=== PATIENT | female | born 1945 | race Caucasian/White ===

== ENCOUNTER → 2018-03-01 08:41 | Outpatient (CLI) | payer MEDICARE, OTHER, SELFPAY ==
--- NOTE | 2018-03-01 | DI.MG.S_ITS ---
BILATERAL DIGITAL SCREENING MAMMOGRAM 3D/2D WITH CAD: 03/01/2018 CLINICAL: Routine screening. Family history of breast cancer. Comparison is made to exams dated: 02/23/2017 mammogram, 02/10/2016 mammogram, and 02/03/2015 mammogram - [facility]. There are scattered fibroglandular elements in both breasts. Current study was also evaluated with a Computer Aided Detection (CAD) system. No significant masses, calcifications, or other findings are seen in either breast. There has been no significant interval change. IMPRESSION: NEGATIVE There is no mammographic evidence of malignancy. A 1 year screening mammogram is recommended. This exam was interpreted at Station ID: [id number]. NOTE: For mammograms, a report in lay terms will be sent to the patient. Approximately 15% of breast malignancies will not be visualized mammographically. In the management of a palpable breast mass, a negative mammogram must not discourage biopsy of a clinically suspicious lesion. Electronically Signed By: Leonidas rodriguez/bria:03/01/2018 11:03:39 copy to: Keyanna Gamino letter sent: Normal Exam ACR BI-RADS Category 1: Negative 3341F
== END ==
PROVIDERS: Visit Provider Physician Assistant
DX: Z12.31 Encounter for screening mammogram for malignant neoplasm of breast (principal); Z80.3 Family history of malignant neoplasm of breast
CPT/HCPCS: 77063; 77067

== ENCOUNTER → 2018-03-06 09:37 | Outpatient (CLI) | payer MEDICARE, OTHER, SELFPAY | PROVIDERS: Visit Provider Family Medicine | DX: M85.852 Other specified disorders of bone density and structure, left thigh (principal); Z78.0 Asymptomatic menopausal state; R29.890 Loss of height; Z82.62 Family history of osteoporosis; Z87.891 Personal history of nicotine dependence | CPT/HCPCS: 77080 ==

== ENCOUNTER → 2019-03-19 10:48 | Outpatient (CLI) | payer MEDICARE, OTHER, SELFPAY ==
--- NOTE | 2019-03-19 | DI.MG.S_ITS ---
BILATERAL DIGITAL SCREENING MAMMOGRAM 3D/2D WITH CAD: 03/19/2019 CLINICAL: Routine screening. Family history of breast cancer. Comparison is made to exams dated: 02/23/2017 mammogram, 03/01/2018 mammogram, and 02/10/2016 mammogram - [facility]. There are scattered fibroglandular elements in both breasts. Current study was also evaluated with a Computer Aided Detection (CAD) system. No significant masses, calcifications, or other findings are seen in either breast. There has been no significant interval change. IMPRESSION: NEGATIVE There is no mammographic evidence of malignancy. A 1 year screening mammogram is recommended. This exam was interpreted at Station ID: [id number]. NOTE: For mammograms, a report in lay terms will be sent to the patient. Approximately 15% of breast malignancies will not be visualized mammographically. In the management of a palpable breast mass, a negative mammogram must not discourage biopsy of a clinically suspicious lesion. Electronically Signed By: Skinny guerra/bria:03/19/2019 16:44:31 copy to: Keyanna Gamino letter sent: Normal Exam ACR BI-RADS Category 1: Negative 3341F
== END ==
PROVIDERS: PCP Family Medicine; Visit Provider Family Medicine
DX: Z12.31 Encounter for screening mammogram for malignant neoplasm of breast (principal); Z80.3 Family history of malignant neoplasm of breast
CPT/HCPCS: 77063; 77067

== ENCOUNTER 2019-03-28 09:14 | Day surgery (SDC) | payer MEDICARE, OTHER, SELFPAY ==
--- NOTE | 2019-03-25 15:55 | PM.PREOP ---
Pre-operative Note Interval Note History & Physical reviewed/Exam performed by Physician: Yes Changes to H&P: No
--- NOTE | 2019-03-25 15:56 | PM.OP.1 ---
Procedure & Clinicians Procedure: Preoperative diagnoses: 1. Nuclear sclerotic cataract 2. Astigmatism which is to be corrected with a toric intraocular lens implant. 3. Hypertension. Postoperative diagnoses: 1. Cataract removal with phacoemulsification with toric posterior chamber intraocular lens implant placed. Procedure: Phacoemulsification with posterior chamber toric intraocular lens implant. Surgeon: Gill Gutiérrez MD Complications: None Specimen: None Implant: [id number] +16.5 [place] 035 degrees, -2.25 target Blood loss: None Anesthesia: Retrobulbar with monitored standby Description of procedure: Patient presents with a complaint of decreased vision due to cataract which is affecting activities of daily living. The patient wants surgery to improve vision and astigmatism. The patient was taken to the operating room and proparacaine drops placed. Indelible ink duke were placed at the 90 and 180 degree meridian. The patient was placed on the operating room table and given IV sedation. A retrobulbar block insert consisting of 6 cc of 2% xylocaine without epinephrine mixed half and half with 0.5% Marcaine with 1 cc of hyaluronidase added is placed between the medial and lateral 1/3 of the inferior orbital rim. Lid akinesia is obtain with 1% xylocaine with epinephrine infiltrated along the lid margin. The eye is manually massaged for 30 sec, prepped using Betadine solution, and draped in the usual sterile fashion. Temporal approach was made, a 1 mm side-port incision was made 90? from the proposed corneal wound. Phenylephrine 1.5% mixed with 1% xylocaine 0.2 cc was placed into the anterior chamber. Viscoat followed by James was then placed. A 2.6 mm clear incision with a 2.6 mm blade was placed at the 170 degree meridian. A 360 degree capsulorrhexis style capsulotomy was then performed with a cystitome needle on a Healon. Hydrodelineation and hydrodissection were performed. The phacoemulsification unit is introduced, and sculpting used to groove the central lens. It is then removed in chopping mode. Epi nucleus is removed with epinuclear mode and irrigation aspiration was used to remove the peripheral cortex. The posterior capsule is polished. The intraocular lens is selected, inspected, power confirmed, and placed in the posterior chamber at the desired meridian of 35?. The pupil was not constricted. The wound was stromally hydrated and tested for leaks, there was none and it was left sutureless. Vigamox 0.1 cc was placed into the anterior chamber. Kenalog 0.2 cc was placed in the superior subconjunctival space. A drop of antibiotic and was placed and the eye was patched and shielded. The patient was stable and returned to the recovery room in excellent condition. Dictated by: Gill Gutiérrez MD Copy to: [facility]
[2019-03-28] MEDS: PROPARACAINE 0.5% OPHTH SOL 2 DROPS EYE-OP (09:42)
[2019-03-28] MEDS: CATARACT EYE COMPOUND (10 DROPS/SYRINGE) 3 DROPS EYE-OP ×3 (09:44→10:03)
[2019-03-28 09:46] VITALS: BP 111/79; PULSE 73; RESP 15; TEMP 36.1; O2SAT 96
[2019-03-28 09:49] VITALS: BMI 31.6
--- NOTE | 2019-03-28 10:54 | SUR.OPER ---
Supine on eye stretcher, head on extension cradle secured with tape. Arms tucked at sides with blanket. Pillow under knees.
[2019-03-28] MEDS: ERYTHROMYCIN OPHTH 1 GM OINT 1 APPLIC EYE-RIGHT (11:21)
[2019-03-28] MEDS: MOXIFLOXACIN OPHTH DROPS 3 ML BOTTLE 2 DROPS INJ ×2 (11:22)
[2019-03-28] MEDS: TRIAMCINOLONE 50 MG/5 ML VIAL INJ (11:23)
[2019-03-28] MEDS: HYALURONATE SODIUM 10 MG/ML SYRINGE INJ (11:24)
[2019-03-28] MEDS: BALANCED SALT IRRIG SOLN NO.2 15 ML IRR (11:24)
[2019-03-28] MEDS: CHONDROIDTIN/SOD HYALURONATE 1.05 ML SYRINGE INTRAOCULA (11:24)
[2019-03-28] MEDS: OFLOXACIN 0.3% OPHTH 5 ML 2 DROPS EYE-RIGHT (11:25)
[2019-03-28] MEDS: BALANCED SALT IRRIG SOLN NO.2 500 ML, EPINEPHrine 1 MG IRR (11:26)
[2019-03-28] MEDS: LIDOCAINE 1% W/EPI INJ 20 ML INJ (11:26)
[2019-03-28] MEDS: LIDOCAINE 2% 4 ML, BUPIVACAINE 0.5% (PF) 4 ML, HYALURONIDASE 150 UNIT INJ (11:27)
[2019-03-28 12:00] VITALS: BP 124/63; PULSE 54; RESP 15; TEMP 36.3; O2SAT 99
[2019-03-28 12:14] VITALS: BP 157/73; PULSE 58; RESP 16; TEMP 36.1; O2SAT 97
== END 2019-03-28 12:18 | disposition home or self-care (01) ==
LOC: OR 09:21
PROVIDERS: PCP Family Medicine; Visit Provider Ophthalmology
PROC: (CPT 66984; principal; 2019-03-28 10:45)
DX: H25.11 Age-related nuclear cataract, right eye (principal); H52.201 Unspecified astigmatism, right eye; I10 Essential (primary) hypertension
CPT/HCPCS: 66984; J0171; J2250; J2704; J3010; J3301; J3470; V2787

== ENCOUNTER 2019-04-11 11:44 | Day surgery (SDC) | payer MEDICARE, OTHER, SELFPAY ==
--- NOTE | 2019-04-09 19:45 | PM.PREOP ---
Pre-operative Note Interval Note History & Physical reviewed/Exam performed by Physician: Yes Changes to H&P: No
--- NOTE | 2019-04-11 07:31 | PM.OP.1 ---
Procedure & Clinicians Procedure: Preoperative diagnoses: 1.Left nuclear sclerotic cataract 2. Astigmatism which is to be corrected with a toric intraocular lens implant. Postoperative diagnoses: 1. Cataract removal with phacoemulsification with toric posterior chamber intraocular lens implant placed. Procedure: Phacoemulsification with posterior chamber toric intraocular lens implant. Surgeon: Gill Gutiérrez MD Complications: None Specimen: None Implant: [id number] +17.5 [place] 135 -2.50 target Blood loss: None Anesthesia: Retrobulbar with monitored standby Description of procedure: Patient presents with a complaint of decreased vision due to cataract which is affecting activities of daily living. The patient wants surgery to improve vision and astigmatism. The patient was taken to the operating room and proparacaine drops placed. Indelible ink duke were placed at the 90 and 180 degree meridian. The patient was placed on the operating room table and given IV sedation. A retrobulbar block insert consisting of 6 cc of 2% xylocaine without epinephrine mixed half and half with 0.5% Marcaine with 1 cc of hyaluronidase added is placed between the medial and lateral 1/3 of the inferior orbital rim. Lid akinesia is obtain with 1% xylocaine with epinephrine infiltrated along the lid margin. The eye is manually massaged for 30 sec, prepped using Betadine solution, and draped in the usual sterile fashion. Temporal approach was made, a 1 mm side-port incision was made 90? from the proposed corneal wound. Phenylephrine 1.5% mixed with 1% xylocaine 0.2 cc was placed into the anterior chamber. Viscoat followed by Healon was then placed. A 2.6 mm clear incision with a 2.6 mm blade was placed at the 170 degree meridian. A 360 degree capsulorrhexis style capsulotomy was then performed with a cystitome needle on a Healon. Hydrodelineation and hydrodissection were performed. The phacoemulsification unit is introduced, and sculpting used to groove the central lens. It is then removed in chopping mode. Epi nucleus is removed with epinuclear mode and irrigation aspiration was used to remove the peripheral cortex. The posterior capsule is polished. The intraocular lens is selected, inspected, power confirmed, and placed in the posterior chamber at the desired meridian of 135 degrees. The pupil was not constricted. The wound was stromally hydrated and tested for leaks, there was none and it was left sutureless. Vigamox 0.1 cc was placed into the anterior chamber. Kenalog 0.2 cc was placed in the superior subconjunctival space. A drop of antibiotic and was placed and the eye was patched and shielded. The patient was stable and returned to the recovery room in excellent condition. Dictated by: Gill Gutiérrez MD Copy to: [facility]
[2019-04-11 12:16] VITALS: BP 145/85; PULSE 63; RESP 16; TEMP 36.3; O2SAT 100; BMI 30.4
[2019-04-11] MEDS: PROPARACAINE 0.5% OPHTH SOL 2 DROPS EYE-OP ×2 (12:28→13:42)
[2019-04-11] MEDS: CATARACT EYE COMPOUND (10 DROPS/SYRINGE) 3 DROPS EYE-OP (12:28)
[2019-04-11] MEDS: PHENYLEPHRINE/LIDOCAINE VIAL (OR) 0.2 ML EYE-OP (13:40)
[2019-04-11] MEDS: MOXIFLOXACIN OPHTH DROPS 3 ML BOTTLE 2 DROPS INJ (13:40)
[2019-04-11] MEDS: HYALURONATE SODIUM 10 MG/ML SYRINGE INJ (13:41)
[2019-04-11] MEDS: BALANCED SALT IRRIG SOLN NO.2 15 ML IRR (13:41)
[2019-04-11] MEDS: TRIAMCINOLONE 50 MG/5 ML VIAL INJ (13:41)
[2019-04-11] MEDS: CHONDROIDTIN/SOD HYALURONATE 1.05 ML SYRINGE INTRAOCULA (13:41)
[2019-04-11] MEDS: BALANCED SALT IRRIG SOLN NO.2 500 ML, EPINEPHrine 1 MG IRR (13:42)
[2019-04-11] MEDS: OFLOXACIN 0.3% OPHTH 5 ML 2 DROPS EYE-LEFT (13:42)
[2019-04-11] MEDS: LIDOCAINE 2% 4 ML, BUPIVACAINE 0.5% (PF) 4 ML, HYALURONIDASE 150 UNIT INJ (13:43)
[2019-04-11] MEDS: ERYTHROMYCIN OPHTH 1 GM OINT 1 APPLIC EYE-LEFT (13:44)
[2019-04-11] MEDS: LIDOCAINE 1% W/EPI INJ 20 ML INJ (13:44)
[2019-04-11 14:15] VITALS: BP 141/75; PULSE 50; RESP 17; TEMP 36.4; O2SAT 99
== END 2019-04-11 14:29 | disposition home or self-care (01) ==
LOC: OR 11:46
PROVIDERS: PCP Family Medicine; Visit Provider Ophthalmology
PROC: (CPT 66984; principal; 2019-04-11 13:15)
DX: H25.12 Age-related nuclear cataract, left eye (principal); H52.202 Unspecified astigmatism, left eye
CPT/HCPCS: 66984; J0171; J2250; J2704; J3010; J3301; J3470; V2787

== ENCOUNTER → 2019-08-07 09:03 | Outpatient (CLI) | payer MEDICARE, OTHER, SELFPAY ==
--- NOTE | 2019-08-07 10:21 | DI.CT.S_ITS ---
PROCEDURE: CT ABDOMEN PELVIS W CON INDICATIONS: ABD PAIN TECHNIQUE: After the administration of oral and intravenous contrast, 5 mm thick sections acquired from the diaphragms to the symphysis. 5 mm thick coronal and sagittal reformats were performed. For radiation dose reduction, the following was used: automated exposure control, adjustment of mA and/or kV according to patient size. COMPARISON: [facility], CT, ABDOMEN/PELVIS WITH CONTRAST, 07/26/2017, 12:02. [facility], CT, ABDOMEN/PELVIS WITH CONTRAST, 08/31/2016, 9:25. FINDINGS: Image quality: Excellent. ABDOMEN: Lung bases: Lung bases are clear. Heart size is normal. Solid organs: Liver is normal in size and enhancement. Gallbladder has been previously resected. Biliary system is non-dilated. Pancreas enhances normally. Spleen is normal in size and enhancement. No adrenal nodules. Kidneys are normal in size and enhancement, without hydronephrosis. Incidental note is made of several small peripelvic cysts lower left renal sinus fat. Peritoneum and bowel: Stomach, small bowel, and colon loops are normal in caliber and wall thickness. No free fluid or air. Nodes and vessels: No retroperitoneal or mesenteric adenopathy. Aorta and inferior vena cava are normal in caliber. Miscellaneous: No ventral hernias. PELVIS: Genitourinary: Bladder wall thickness is normal. Miscellaneous: No inguinal hernias or adenopathy. Normal appendix containing oral contrast, right lower quadrant. Bones: No suspicious bony lesions. No vertebral body compression fractures. 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 IMPRESSION: No acute disease foun, source of new onset abdominal pain is not identified. Normal appendix right lower quadrant. No sign of diverticulitis or adnexal pathology left lower quadrant. No urinary tract abnormality seen suggestive of inflammation or calculus. Prior cholecystectomy. Dictated by: Laron Cruz M.D. on 08/07/2019 at 13:55 Approved by: Laron Cruz M.D. on 08/07/2019 at 13:58
== END ==
PROVIDERS: PCP Family Medicine; Visit Provider Family Medicine
DX: R10.9 Unspecified abdominal pain (principal); Z90.49 Acquired absence of other specified parts of digestive tract
CPT/HCPCS: 74177

== ENCOUNTER → 2020-01-16 10:43 | Outpatient (CLI) | payer MEDICARE, OTHER, SELFPAY ==
--- NOTE | 2020-01-16 | DI.RAD.S_ITS ---
PROCEDURE: XR WRIST RT MIN 3V INDICATIONS: Rt wrist injury TECHNIQUE: 4 views of the wrist were acquired. COMPARISON: None. FINDINGS: Bones: No fractures or dislocations. No suspicious bony lesions. Scaphoid view: No trauma. Soft tissues: No suspicious soft tissue calcifications. IMPRESSION: No trauma found. Mild osteoarthritis. Dictated by: Laron Cruz M.D. on 01/16/2020 at 11:28 Approved by: Laron Cruz M.D. on 01/16/2020 at 11:29
== END ==
PROVIDERS: PCP Family Medicine; Referring Provider Family Medicine; Visit Provider Family Medicine
DX: S69.91XA Unspecified injury of right wrist, hand and finger(s), initial encounter (principal); M19.031 Primary osteoarthritis, right wrist; X58.XXXA Exposure to other specified factors, initial encounter
CPT/HCPCS: 73110

== ENCOUNTER → 2020-06-09 10:06 | Outpatient (CLI) | payer MEDICARE, OTHER, SELFPAY ==
--- NOTE | 2020-06-09 | DI.RAD.S_ITS ---
PROCEDURE: XR ANKLE LT MIN 3V INDICATIONS: LEFT ANKLE PAIN TECHNIQUE: 3 views of the ankle were acquired. COMPARISON: None. FINDINGS: Bones: No fractures or dislocations. Ankle mortise is normally aligned. No suspicious bony lesions. Soft tissues: No tibiotalar joint effusion. Achilles tendon appears normal. IMPRESSION: No visualized acute fracture or dislocation. However, if clinical concern and/or pain persist, short interval imaging followup in 7-10 days is recommended, as occult injury cannot be definitively excluded. Dictated by: Aga Parra M.D. on 06/09/2020 at 12:28 Approved by: Aga Parra M.D. on 06/09/2020 at 12:28
== END ==
PROVIDERS: PCP Family Medicine; Referring Provider Family Medicine; Visit Provider Family Medicine
DX: M25.572 Pain in left ankle and joints of left foot (principal)
CPT/HCPCS: 73610

== ENCOUNTER → 2020-06-23 08:18 | Outpatient (CLI) | payer MEDICARE, OTHER, SELFPAY ==
--- NOTE | 2020-06-23 | DI.MG.S_ITS ---
BILATERAL DIGITAL SCREENING MAMMOGRAM 3D/2D WITH CAD: 06/23/2020 CLINICAL: Routine screening. Family history of breast cancer. Comparison is made to exams dated: 03/19/2019 mammogram, 03/01/2018 mammogram, and 02/23/2017 mammogram - [facility]. There are scattered fibroglandular elements in both breasts. Current study was also evaluated with a Computer Aided Detection (CAD) system. No significant masses, calcifications, or other findings are seen in either breast. There has been no significant interval change. IMPRESSION: NEGATIVE There is no mammographic evidence of malignancy. A 1 year screening mammogram is recommended. This exam was interpreted at Station ID: [id number]. NOTE: For mammograms, a report in lay terms will be sent to the patient. Approximately 15% of breast malignancies will not be visualized mammographically. In the management of a palpable breast mass, a negative mammogram must not discourage biopsy of a clinically suspicious lesion. Electronically Signed By: Abhi zeng/bria:06/23/2020 10:07:50 copy to: Keyanna Gamino letter sent: Normal Exam ACR BI-RADS Category 1: Negative 3341F
== END ==
PROVIDERS: PCP Family Medicine; Referring Provider Family Medicine; Visit Provider Family Medicine
DX: Z12.31 Encounter for screening mammogram for malignant neoplasm of breast (principal); Z80.3 Family history of malignant neoplasm of breast
CPT/HCPCS: 77063; 77067

== ENCOUNTER → 2020-07-08 10:21 | Outpatient (CLI) | payer MEDICARE, OTHER, SELFPAY ==
[2020-07-09 02:07] LABS: COVID19 Sendout Not Detected (Not Detect)
== END ==
PROVIDERS: PCP Family Medicine; Visit Provider Nurse Practitioner
DX: Z11.59 Encounter for screening for other viral diseases (principal)
CPT/HCPCS: 87635

== ENCOUNTER 2020-07-11 07:18 | Day surgery (SDC) | payer MEDICARE, OTHER, SELFPAY ==
--- NOTE | 2020-07-11 | PATH_ITS ---
[facility] Accession Number: [id number] . 01 Material submitted: . colon - RANDOM COLON TISSUE BIOPSIES . 01 Clinical history: . SDC . 02 Diagnosis: Random Colon, Biopsies: Colonic mucosa with no diagnostic abnormality. Negative for active, chronic, and microscopic colitis. Negative for dysplasia and malignancy. . MRV 07/15/2020 1044 Local . 02 Electronically signed: . Flaco Montejo MD, PhD, Pathologist NPI- [id number] . 01 Gross description: . The specimen is received in formalin, labeled random colon, and consists of multiple middleton fragments of soft tissue measuring 1.2 x 1.0 x 0.2 cm in aggregate. The specimen is filtered and entirely submitted in cassette A1. ([id number]) /FRR 07/12/2020 1755 Local . 02 Pathologist provided ICD-10: R19.4 . 02 CPT . 794910 Performed at: 01 [facility] [address] [facility], [place], [place] [id number] MD Skinny Alvarez MD Phone: [phone] Performed at: 02 [facility] [address] [place], [place] [id number] MD Melodie Rainey MD Phone: [phone]
[2020-07-11 07:36] VITALS: BMI 32.3
[2020-07-11 07:42] VITALS: BP 162/77; PULSE 64; RESP 12; TEMP 37.2; O2SAT 99
[2020-07-11] MEDS: SODIUM CHLORIDE 0.9% 1,000 ML 200 ML IV (07:46)
--- NOTE | 2020-07-11 08:36 | PM.PREOP ---
Pre-operative Note COVID-19 COVID-19 status: Negative Result date/Date tested (Pos, Neg/Pending): 07/08/20 Interval Note History & Physical reviewed/Exam performed by Physician: Yes Changes to H&P: No ASA Class (for procedural sedation): II
--- NOTE | 2020-07-11 08:42 | PM.OP.ENDO ---
Operative Date/Time/Diagnoses Date of procedure: 07/11/20 Time of procedure: 08:42 Pre-op diagnosis: History of chronic diarrhea, change in bowel habit, incomplete colonoscopy 2 years ago with recommendation for repeat colonoscopy in 2 years Post-op diagnosis: other (Moderate diverticulosis in the descending and remaining sigmoid colon. Healthy looking sigmoid anastomosis without stenosis. Biopsies taken to rule out microscopic colitis) Procedure & Clinicians Study performed: Colonoscopy Procedural sedation performed by the endoscopist Random cold Jumbo forceps biopsies throughout the colon to rule out microscopic colitis Same procedure as scheduled: Yes Indications: Change in bowel habit, history of incomplete colonoscopy Surgeon: Jessica Delgadillo Procedure Notes SCOAP/Timeout: Performed Procedure in detail: The patient was brought to the room and placed in left lateral decubitus position with all bony prominences padded. A time-out was performed and then the patient was given procedural sedation starting with 4 mg of Versed and 100 mcg of fentanyl. Vitals were monitored throughout the procedure and remained stable. Once adequately sedated, the procedure was begun. A rectal exam was performed revealing no abnormalities. The colonoscope was then introduced to the rectum and advanced to the cecum in the usual fashion. In the right side of the colon, the prep was moderate with some adherent stool. I washed off as much as I could, but there is a possibility that smaller polyps could be missed in this area due to the incomplete prep. The cecum was identified by the appendiceal orifice, the mucosal tri-fold, and the ileocecal valve. The scope was then retracted while rotating side to side and examining each mucosal fold. Random biopsies were taken throughout the colon to rule out microscopic colitis as a cause of the patient's persistent diarrhea. The anastomosis from her prior sigmoid resection was seen, and did not appear stenotic, it appeared quite healthy and normal. At the conclusion of the procedure retroflexion was performed and small grade 1-2 internal hemorrhoids without stigmata of bleeding were seen. The scope was then withdrawn from the rectum the procedure was concluded. The patient tolerated the procedure well and was transferred to the PACU in stable condition. Scope withdrawal time: 11 Sedation minutes: 20 Findings: diverticulosis Specimen(s): other (Random biopsies throughout the colon) Complications: none Impression: Normal appearing colonic mucosa with a few diverticula. Healthy looking colonic anastomosis without stenosis or abnormality. Post-procedure Recommendations: Colonscopy in 5 years (Due to incomplete prep, possibility of missing small polyps in the right colon) and Other recommendation (Follow-up to discuss biopsy results) Follow up: as needed Disposition: PACU
[2020-07-11] MEDS: MIDAZOLAM 5 MG/5 ML VIAL IV (08:44)
[2020-07-11] MEDS: fentaNYL 250 MCG/5 ML INJ IV (08:44)
[2020-07-11 09:07] VITALS: BP 142/64; PULSE 50; RESP 15; TEMP 37.1; O2SAT 97
[2020-07-11 09:13] VITALS: BP 124/56; PULSE 55; RESP 15; TEMP 36.4; O2SAT 98
[2020-07-11 09:16] VITALS: BP 124/64; PULSE 56; RESP 20; TEMP 36.7; O2SAT 98
[2020-07-11 09:37] VITALS: BP 126/51; PULSE 49; RESP 20; TEMP 36.3; O2SAT 96
--- NOTE | 2020-07-11 09:39 | SUR.PHASEII ---
Patient discharged in stable condition with all belongings returned.
== END 2020-07-11 09:40 | disposition home or self-care (01) ==
PROVIDERS: PCP Family Medicine; Referring Provider Family Medicine; Visit Provider Surgery
PROC: 0DJD8ZZ Inspection of Lower Intestinal Tract, Via Natural or Artificial Opening Endoscopic (ICD-10-PCS; CPT 45378; principal; 2020-07-11 08:30)
DX: R19.4 Change in bowel habit (principal); K57.30 Diverticulosis of large intestine without perforation or abscess without bleeding; I10 Essential (primary) hypertension; E78.5 Hyperlipidemia, unspecified; E03.9 Hypothyroidism, unspecified; E66.9 Obesity, unspecified; Z68.32 Body mass index [BMI] 32.0-32.9, adult; Z98.0 Intestinal bypass and anastomosis status; Z90.49 Acquired absence of other specified parts of digestive tract
CPT/HCPCS: 45380; 99152; J2250; J3010

== ENCOUNTER → 2020-07-22 09:37 | Outpatient (CLI) | payer MEDICARE, OTHER, SELFPAY | PROVIDERS: PCP Family Medicine; Referring Provider Family Medicine; Visit Provider Family Medicine | DX: M85.80 Other specified disorders of bone density and structure, unspecified site (principal); Z78.0 Asymptomatic menopausal state; E07.9 Disorder of thyroid, unspecified; Z90.722 Acquired absence of ovaries, bilateral; Z82.62 Family history of osteoporosis; Z87.891 Personal history of nicotine dependence | CPT/HCPCS: 77080 ==

== ENCOUNTER 2020-10-15 10:30 | Outpatient (RCR) | payer MEDICARE, OTHER, SELFPAY ==
--- NOTE | 2020-07-07 13:50 | PT.OIE ---
Current Diagnoses Pain in left ankle and joints of left foot (07/07/20) Weakness (07/07/20) Edema, unspecified (07/07/20) Past Medical History (Last Reviewed 06/26/20 @ 14:42 by Jessica Delgadillo MD) History of diverticulitis (Acute) Hypertension (Acute) Hypothyroid (Acute) Ocular migraine (Acute) Past Surgical History (Last Reviewed 06/26/20 @ 14:42 by Jessica Delgadillo MD) H/O bilateral oophorectomy (Acute) History of arthroscopy of right knee (Acute) History of cholecystectomy (Acute) History of colon resection (Acute) History of hysterectomy (Acute) History of incisional hernia repair (Acute) Hx of total knee arthroplasty (Acute) Visit Care Team Role Provider Type Keyanna Gamino MD Attending Provider Physician Primary Care Provider Referring Provider Specialty: Family Practice Address: [address] [place] [address], [facility] Email: [email or web address] Initial Evaluation PT-OP-A Visit Information Start: 07/03/20 17:36 Freq: Status: Active Protocol: Document 07/07/20 09:47 SAK (Rec: 07/07/20 10:15 SAK [id number]) Out-Patient Physical Therapy Visit Information Visit Information Visit Type Initial Evaluation Visit Start Time 09:47 Visit Stop Time 10:41 Total Visit Minutes 54 Visit Number 1 Evaluation Information Evaluation Date 07/07/20 PT-OP-B Current Condition Start: 07/03/20 17:36 Freq: Status: Active Protocol: Document 07/07/20 09:47 SAK (Rec: 07/07/20 10:15 SAK [id number]) Current Condition History of Current Condition Onset Date 1 year Current Complaints left ankle pain and swelling History of Current Condition gradual onset left ankle pain. No known injury. Silk Opener recommended ice and heat, minimal effect. Wears Vionic shoes, reports less pain with the good arch. States walking very limited at this time due to the pain and that she knows she limps. Has not used cane or tried compression stockings Prior Treatments and Tests x-ray negative Treatment Goals Patient/Caregiver Goals minimize pain, be able to walk without pain Prior Functional Status Baseline Function- ADL's Independent Baseline Function- Mobility Independent Baseline Function- Gait no limp Current Functional Impairments (Reported) Functional Limitations- ADL's painful in standing Functional Limitations- Mobility/Gait limited to household and short distance community. Unable to go for long walks as previously due the pain PT-OP-C Subjective Start: 07/03/20 17:36 Freq: Status: Active Protocol: Document 07/07/20 09:47 SAK (Rec: 07/07/20 11:14 [facility] [id number]) Patient Questionnaires Foot & Ankle Ability Measure- ADL and Sports FAAM-ADL Score 43 Lower Extremity Functional Scale LEFS Score 54 OP-PT Pain Assessment Pain Assessment Grid Paper Pain Assessment Grid Completed Yes Location left ankle Intensity 8 Scale Used Numeric (0 - 10) Description Aching,Pressure,With Movement Frequency Frequent Pain Aggravating Factors Changing Position,Activity, Standing,Walking Pain Alleviating Factors Inactivity Home Pain Medication Use Pain Medications Used No Pain Behaviors Pain Behaviors Facial Grimacing,Wincing PT-OP-F Manual Assessment Start: 07/03/20 17:36 Freq: Status: Active Protocol: Document 07/07/20 13:23 [facility] (Rec: 07/07/20 13:49 [facility] [id number]) Manual Assessments Joint Mobility Assessment Joint Mobility Assessment decreased subtalar mobility all motions PT-OP-G Mobility & Gait Start: 07/03/20 17:36 Freq: Status: Active Protocol: Document 07/07/20 13:23 [facility] (Rec: 07/07/20 13:49 [facility] [id number]) OP Gait Assessment Gait Gait Assistance Required: Independent Assistive Devices Assistive Device None Gait Deviations General Gait Pattern Antalgic Factors Limiting Gait Function Factors Limiting Gait Function Decreased Strength,Pain Comments Gait Comments swelling Stair Climbing Evaluation Technique/Endurance Stair Climbing Technique Step to Step PT-OP-H Neuro Start: 07/03/20 17:36 Freq: Status: Active Protocol: Document 07/07/20 13:23 [facility] (Rec: 07/07/20 13:49 [facility] [id number]) Sensation Evaluation Gross Sensation Gross Sensation WNL PT-OP-J Posture/Palpation/Skin Start: 07/03/20 17:36 Freq: Status: Active Protocol: Document 07/07/20 13:23 SAK (Rec: 07/07/20 13:49 [facility] [id number]) Posture Evaluation Position Standing Knee Posture (L) Genu Recurvatum Ankle/Foot Posture (L) Pronated,(L) Forefoot Eversion Foot Arch (L) Low Arch Comments Posture Comments no space between left great toe and 2nd toe at rest Palpation Assessment Location left ankle Palpation Location medial Palpation Findings Edema,Tenderness Palpation Details mild increase in warmth, no redness Skin Assessment Edema Assessment Left Ankle Edema Type Non-Pitting Edema Degree 2+ Edema Appearance Puffy Subjective Edema Description Pain Circumference Measurement 2 Location left malleolar Measurement (Centimeters) 27.8 1 Location right malleolar Measurement (Centimeters) 26.5 PT-OP-K Range of Motion Start: 07/03/20 17:36 Freq: Status: Active Protocol: Document 07/07/20 13:23 [facility] (Rec: 07/07/20 13:49 [facility] [id number]) Ankle and Foot Goniometric Range of Motion Ankle and Foot Left Active Dorsiflexion with Knee Flexed 4 Plantarflexion 40 Inversion 24 Eversion 32 Right Active Dorsiflexion with Knee Flexed 8 Plantarflexion 55 Inversion 35 Eversion 37 Ankle and Foot ROM Limitations ROM Limitations Soft Tissue Tightness,Pain, Swelling PT-OP-M Strength Start: 07/03/20 17:36 Freq: Status: Active Protocol: Document 07/07/20 13:23 [facility] (Rec: 07/07/20 13:49 [facility] [id number]) Knee Strength Knee Manual Muscle Testing mildred Flexion (S2) 4 Good Extension (L3) 4+ Good+ Ankle/Foot Strength Ankle and Foot Manual Muscle Testing Left Dorsiflexion (L4) 4 Good Plantarflexion (S1) 4 Good Inversion 4 Good Eversion (S1) 4- Good- Right Dorsiflexion (L4) 4+ Good+ Plantarflexion (S1) 5 Normal Inversion 5 Normal Eversion (S1) 5 Normal PT-OP-Q Treatments Start: 07/03/20 17:36 Freq: Status: Active Protocol: Document 07/07/20 13:23 [facility] (Rec: 07/07/20 13:49 [facility] [id number]) Manual Therapy Treatment Taping left ankle Body Location left ankle Treatment Focus edema reduction, arch support Type of Tape Kinesio Tape Comments 2 fan strips, 1 I strip Self-Care/Home Management Treatment Education Patient Education Home Exercise Program Other Education Compression stocking; patient said [employer] is brand she would like to try. PT looked up; they are 15-20 mm Hg. Instructed to use cane for gait, use in right hand. Has own cane, used after left TKA PT-OP-R Modalities Start: 07/03/20 17:36 Freq: Status: Active Protocol: Document 07/07/20 13:23 [facility] (Rec: 07/07/20 13:49 [facility] [id number]) Hot Pack/Cold Pack Treatment Cold Pack Location left ankle Patient Position Hooklying Treatment Duration (minutes) 10 Patient Tolerance Good Comments Cryocuff PT-OP-T Assessment and Plan Start: 07/03/20 17:36 Freq: Status: Active Protocol: Document 07/07/20 13:23 [facility] (Rec: 07/07/20 13:49 [facility] [id number]) Physical Therapy Assessment Rehab Potential Rehabilitation Potential Good Evaluation Complexity Number of Personal Factors/Comorbidities 1-2 Number of Body Systems Impaired 3 Clinical Presentation at Evaluation Evolving Impairments Impairments Edema,Gait,Pain,ROM,Strength Goals Four Impairment lower extremity functional scale 54%, Foot and ankle ability measure 43% Jail Goal (LTG) Improve scores on LEFS and FAAM to at least 75% as evidence of patient's improved function LTG Duration 10/05/20 Three Impairment decreased ROM and strength left ankle Short Term Goal (STG) Patient to be instructed in HEP for purposes of ROM and strengthening left ankle STG Duration 08/18/20 Jail Goal (LTG) Patient to demonstrate ROM WNL , and 5/5 strength left ankle for improved functional mobility LTG Duration 10/05/20 Two Impairment swelling left ankle Jail Goal (LTG) Minimize swelling left ankle to no greater than 0.5 cm difference between left and right LTG Duration 10/05/20 One Impairment pain left ankle interrupting sleep and causing antalgic gait Short Term Goal (STG) Patient to report 50% reduction in pain STG Duration 08/18/20 Jail Goal (LTG) Patient will report decrease in pain to allow her to resume normal sleep and ambulate usual distances without an assistive device. LTG Duration 10/05/20 Assessment Summary Assessment Patient presents with function -limiting pain in her left ankle with decreased ROM and strength, antalgic gait, swelling. In standing her left foot presents with excess pronation and eversion, decreased space between great toe and second toe. Today's treatment after evaluation consisted of instruction in HEP, kinesiotape for edema reduction and arch support, cryocuff for edema reduction. She was instructed to ambulate with cane if unable to ambulate without limp. Also instructed to obtain compression stockings; looked up online and patient agreeable to try 15-20mm Hg strength compression. Physical Therapy Plan Frequency and Duration Frequency of Treatment 2x/Week Duration of Treatment 8 Plan of Care Start Date 07/07/20 Plan of Care End Date 10/05/20 Therapeutic Interventions Therapeutic Interventions Gait Training,Home Exercise Program,Joint Mobilizations, Manual Therapy,Patient/ Caregiver Education,Self-Care/ Home Management,Soft Tissue Mobilization,Taping, Therapeutic Activities, Therapeutic Exercises Modalities Cold Pack/Ice Massage,Electric Stimulation,Hot Packs, Ultrasound Other Therapeutic Interventions edema management Next Visit Focus/Plan Next Note Type Treatment Note Next Visit Plan Assess response to first treatment, review HEP. Add Biodex, BAPS, ankle strengthening with theraband. Consider IFISIDRO CANDELARIA.
--- NOTE | 2020-07-07 13:50 | PT.OPPOC ---
Physical, Occupational & Speech Therapy At [facility] Current Diagnoses Pain in left ankle and joints of left foot (07/07/20) Weakness (07/07/20) Edema, unspecified (07/07/20) Visit Care Team Role Provider Type Keyanna Gamino MD Attending Provider Physician Primary Care Provider Referring Provider Specialty: [facility] Address: [address] [place] [address], [facility] [place], [facility] Email: [email or web address] Plan Of Care PT-OP-T Assessment and Plan Start: 07/03/20 17:36 Freq: Status: Active Protocol: Document 07/07/20 13:23 SAK (Rec: 07/07/20 13:49 SAK [id number]) Physical Therapy Assessment Rehab Potential Rehabilitation Potential Good Evaluation Complexity Number of Personal Factors/Comorbidities 1-2 Number of Body Systems Impaired 3 Clinical Presentation at Evaluation Evolving Impairments Impairments Edema,Gait,Pain,ROM,Strength Goals Four Impairment lower extremity functional scale 54%, Foot and ankle ability measure 43% [place] Goal (LTG) Improve scores on LEFS and FAAM to at least 75% as evidence of patient's improved function LTG Duration 10/05/20 Three Impairment decreased ROM and strength left ankle Short Term Goal (STG) Patient to be instructed in HEP for purposes of ROM and strengthening left ankle STG Duration 08/18/20 [place] Goal (LTG) Patient to demonstrate ROM WNL , and 5/5 strength left ankle for improved functional mobility LTG Duration 10/05/20 Two Impairment swelling left ankle [place]cook Goal (LTG) Minimize swelling left ankle to no greater than 0.5 cm difference between left and right LTG Duration 10/05/20 One Impairment pain left ankle interrupting sleep and causing antalgic gait Short Term Goal (STG) Patient to report 50% reduction in pain STG Duration 08/18/20 Fdc Goal (LTG) Patient will report decrease in pain to allow her to resume normal sleep and ambulate usual distances without an assistive device. LTG Duration 10/05/20 Assessment Summary Assessment Patient presents with function -limiting pain in her left ankle with decreased ROM and strength, antalgic gait, swelling. In standing her left foot presents with excess pronation and eversion, decreased space between great toe and second toe. Today's treatment after evaluation consisted of instruction in HEP, kinesiotape for edema reduction and arch support, cryocuff for edema reduction. She was instructed to ambulate with cane if unable to ambulate without limp. Also instructed to obtain compression stockings; looked up online and patient agreeable to try 15-20mm Hg strength compression. Physical Therapy Plan Frequency and Duration Frequency of Treatment 2x/Week Duration of Treatment 8 Plan of Care Start Date 07/07/20 Plan of Care End Date 10/05/20 Therapeutic Interventions Therapeutic Interventions Gait Training,Home Exercise Program,Joint Mobilizations, Manual Therapy,Patient/ Caregiver Education,Self-Care/ Home Management,Soft Tissue Mobilization,Taping, Therapeutic Activities, Therapeutic Exercises Modalities Cold Pack/Ice Massage,Electric Stimulation,Hot Packs, Ultrasound Other Therapeutic Interventions edema management Next Visit Focus/Plan Next Note Type Treatment Note Next Visit Plan Assess response to first treatment, review HEP. Add Biodex, BAPS, ankle strengthening with theraband. Consider IFES, MLD. Plan of Care Dates Plan of Care Start Date 07/07/20 Plan of Care End Date 10/05/20 Electronically Signed by: Lainey Samuels, PT 07/07/20 [id number] Please Sign and Return: I have reviewed this Plan of Care and certify that the skilled therapy services above are required to meet the patient?s needs. Physician Signature Date Printed Name and Credentials Clinical Instructor Signature Printed Name and Credentials
--- NOTE | 2020-07-14 15:02 | PT.OTN ---
Current Diagnoses Pain in left ankle and joints of left foot (07/14/20) Weakness (07/14/20) Edema, unspecified (07/14/20) Physical Therapy Treatment Note PT-OP-A Visit Information Start: 07/03/20 17:36 Freq: Status: Active Protocol: Document 07/14/20 09:46 SAK (Rec: 07/14/20 11:19 SAK [id number]) Out-Patient Physical Therapy Visit Information Visit Information Visit Type Treatment Note Visit Start Time 09:45 Visit Stop Time 10:40 Total Visit Minutes 55 Visit Number 2 PT-OP-B Current Condition Start: 07/03/20 17:36 Freq: Status: Active Protocol: Document 07/07/20 09:47 SAK (Rec: 07/07/20 10:15 SAK [id number]) Current Condition History of Current Condition Onset Date 1 year Current Complaints left ankle pain and swelling History of Current Condition gradual onset left ankle pain. No known injury. Furniture Reproducer recommended ice and heat, minimal effect. Wears Vionic shoes, reports less pain with the good arch. States walking very limited at this time due to the pain and that she knows she limps. Has not used cane or tried compression stockings Prior Treatments and Tests x-ray negative Treatment Goals Patient/Caregiver Goals minimize pain, be able to walk without pain Prior Functional Status Baseline Function- ADL's Independent Baseline Function- Mobility Independent Baseline Function- Gait no limp Current Functional Impairments (Reported) Functional Limitations- ADL's painful in standing Functional Limitations- Mobility/Gait limited to household and short distance community. Unable to go for long walks as previously due the pain PT-OP-C Subjective Start: 07/03/20 17:36 Freq: Status: Active Protocol: Document 07/14/20 09:46 [facility] (Rec: 07/14/20 11:19 SAK [id number]) OP-PT Subjective Patient Comments Patient Comments I feel a little better. Having difficulty with short foot exercises. Compression socks are coming today. Liked the kinesiotape PT-OP-F Manual Assessment Start: 07/03/20 17:36 Freq: Status: Active Protocol: Document 07/07/20 13:23 SAK (Rec: 07/07/20 13:49 SAK [id number]) Manual Assessments Joint Mobility Assessment Joint Mobility Assessment decreased subtalar mobility all motions PT-OP-G Mobility & Gait Start: 07/03/20 17:36 Freq: Status: Active Protocol: Document 07/07/20 13:23 SAK (Rec: 07/07/20 13:49 [facility] [id number]) OP Gait Assessment Gait Gait Assistance Required: Independent Assistive Devices Assistive Device None Gait Deviations General Gait Pattern Antalgic Factors Limiting Gait Function Factors Limiting Gait Function Decreased Strength,Pain Comments Gait Comments swelling Stair Climbing Evaluation Technique/Endurance Stair Climbing Technique Step to Step PT-OP-H Neuro Start: 07/03/20 17:36 Freq: Status: Active Protocol: Document 07/07/20 13:23 SAK (Rec: 07/07/20 13:49 [facility] [id number]) Sensation Evaluation Gross Sensation Gross Sensation WNL PT-OP-J Posture/Palpation/Skin Start: 07/03/20 17:36 Freq: Status: Active Protocol: Document 07/07/20 13:23 SAK (Rec: 07/07/20 13:49 [facility] [id number]) Posture Evaluation Position Standing Knee Posture (L) Genu Recurvatum Ankle/Foot Posture (L) Pronated,(L) Forefoot Eversion Foot Arch (L) Low Arch Comments Posture Comments no space between left great toe and 2nd toe at rest Palpation Assessment Location left ankle Palpation Location medial Palpation Findings Edema,Tenderness Palpation Details mild increase in warmth, no redness Skin Assessment Edema Assessment Left Ankle Edema Type Non-Pitting Edema Degree 2+ Edema Appearance Puffy Subjective Edema Description Pain Circumference Measurement 2 Location left malleolar Measurement (Centimeters) 27.8 1 Location right malleolar Measurement (Centimeters) 26.5 PT-OP-K Range of Motion Start: 07/03/20 17:36 Freq: Status: Active Protocol: Document 07/07/20 13:23 SAK (Rec: 07/07/20 13:49 [facility] [id number]) Ankle and Foot Goniometric Range of Motion Ankle and Foot Left Active Dorsiflexion with Knee Flexed 4 Plantarflexion 40 Inversion 24 Eversion 32 Right Active Dorsiflexion with Knee Flexed 8 Plantarflexion 55 Inversion 35 Eversion 37 Ankle and Foot ROM Limitations ROM Limitations Soft Tissue Tightness,Pain, Swelling PT-OP-M Strength Start: 07/03/20 17:36 Freq: Status: Active Protocol: Document 07/07/20 13:23 [facility] (Rec: 07/07/20 13:49 [facility] [id number]) Knee Strength Knee Manual Muscle Testing mildred Flexion (S2) 4 Good Extension (L3) 4+ Good+ Ankle/Foot Strength Ankle and Foot Manual Muscle Testing Left Dorsiflexion (L4) 4 Good Plantarflexion (S1) 4 Good Inversion 4 Good Eversion (S1) 4- Good- Right Dorsiflexion (L4) 4+ Good+ Plantarflexion (S1) 5 Normal Inversion 5 Normal Eversion (S1) 5 Normal PT-OP-Q Treatments Start: 07/03/20 17:36 Freq: Status: Active Protocol: Document 07/14/20 09:46 [facility] (Rec: 07/14/20 11:19 [facility] [id number]) Cardio Equipment Recumbent Stepper (Sci-Fit) Duration (Minutes) 7 Resistance 1 Therapeutic Exercises Supine Exercises ankle inv Resistance L1 TB Reps/Minutes 10x ankle df Resistance L1 TB Reps/Minutes 10x Sitting Exercises BAPS Sitting Exercise Name front/back, neutral to inv Equipment Used L2 Reps/Minutes 10x ea Comments pain with ev marble warp picker Reps/Minutes 10x towel scrunch Reps/Minutes 10x short foot Reps/Minutes 5x Standing Exercises HC stretch Equipment Used DANIELA Reps/Minutes 2x30 Manual Therapy Treatment Taping left ankle Body Location left ankle Treatment Focus edema reduction, arch support Type of Tape Kinesio Tape Comments 2 fan strips, 1 I strip Self-Care/Home Management Treatment Education Patient Education Home Exercise Program Other Education updated written HEP PT-OP-R Modalities Start: 07/03/20 17:36 Freq: Status: Active Protocol: Document 07/14/20 09:46 [facility] (Rec: 07/14/20 11:19 [facility] [id number]) Hot Pack/Cold Pack Treatment Cold Pack Location left ankle Patient Position Hooklying Treatment Duration (minutes) 10 Patient Tolerance Good Comments Cryocuff PT-OP-T Assessment and Plan Start: 07/03/20 17:36 Freq: Status: Active Protocol: Document 07/14/20 09:46 [facility] (Rec: 07/14/20 11:19 [facility] [id number]) Physical Therapy Assessment Goals Four Impairment lower extremity functional scale 54%, Foot and ankle ability measure 43% Shelter Goal (LTG) Improve scores on LEFS and FAAM to at least 75% as evidence of patient's improved function LTG Duration 10/05/20 Three Impairment decreased ROM and strength left ankle Short Term Goal (STG) Patient to be instructed in HEP for purposes of ROM and strengthening left ankle STG Duration 08/18/20 Shelter Goal (LTG) Patient to demonstrate ROM WNL , and 5/5 strength left ankle for improved functional mobility LTG Duration 10/05/20 Two Impairment swelling left ankle Final Dressing Cutter Goal (LTG) Minimize swelling left ankle to no greater than 0.5 cm difference between left and right LTG Duration 10/05/20 One Impairment pain left ankle interrupting sleep and causing antalgic gait Short Term Goal (STG) Patient to report 50% reduction in pain STG Duration 08/18/20 Shelter Goal (LTG) Patient will report decrease in pain to allow her to resume normal sleep and ambulate usual distances without an assistive device. LTG Duration 10/05/20 Assessment Summary Assessment Used mirror for visual feedback for short foot exercise in sitting and standing, tongue depressors for tactile feedback in sitting; improved performance after training today. Discussed different orthotics as patient Vionic shoes don't prevent overpronation; recommended S[employer] brand. Physical Therapy Plan Frequency and Duration Frequency of Treatment 2x/Week Duration of Treatment 8 Plan of Care Start Date 07/07/20 Plan of Care End Date 10/05/20 Therapeutic Interventions Therapeutic Interventions Gait Training,Home Exercise Program,Joint Mobilizations, Manual Therapy,Patient/ Caregiver Education,Self-Care/ Home Management,Soft Tissue Mobilization,Taping, Therapeutic Activities, Therapeutic Exercises Modalities Cold Pack/Ice Massage,Electric Stimulation,Hot Packs, Ultrasound Other Therapeutic Interventions edema management Next Visit Focus/Plan Next Note Type Treatment Note Next Visit Plan Continue PT per POC, evaluate compression socks.
--- NOTE | 2020-07-16 12:18 | PT.OTN ---
Current Diagnoses Pain in left ankle and joints of left foot (07/16/20) Weakness (07/16/20) Edema, unspecified (07/16/20) Physical Therapy Treatment Note PT-OP-A Visit Information Start: 07/03/20 17:36 Freq: Status: Active Protocol: Document 07/16/20 10:32 SAK (Rec: 07/16/20 11:05 SAK [id number]) Out-Patient Physical Therapy Visit Information Visit Information Visit Type Treatment Note Visit Start Time 10:30 Visit Stop Time 11:25 Total Visit Minutes 55 Visit Number 3 PT-OP-B Current Condition Start: 07/03/20 17:36 Freq: Status: Active Protocol: Document 07/07/20 09:47 SAK (Rec: 07/07/20 10:15 SAK [id number]) Current Condition History of Current Condition Onset Date 1 year Current Complaints left ankle pain and swelling History of Current Condition gradual onset left ankle pain. No known injury. Patrol Mother recommended ice and heat, minimal effect. Wears Vionic shoes, reports less pain with the good arch. States walking very limited at this time due to the pain and that she knows she limps. Has not used cane or tried compression stockings Prior Treatments and Tests x-ray negative Treatment Goals Patient/Caregiver Goals minimize pain, be able to walk without pain Prior Functional Status Baseline Function- ADL's Independent Baseline Function- Mobility Independent Baseline Function- Gait no limp Current Functional Impairments (Reported) Functional Limitations- ADL's painful in standing Functional Limitations- Mobility/Gait limited to household and short distance community. Unable to go for long walks as previously due the pain PT-OP-C Subjective Start: 07/03/20 17:36 Freq: Status: Active Protocol: Document 07/16/20 10:32 SAK (Rec: 07/16/20 11:05 SAK [id number]) OP-PT Subjective Patient Comments Patient Comments A little less pain, less limping. Compression stockings should arrive today. PT-OP-F Manual Assessment Start: 07/03/20 17:36 Freq: Status: Active Protocol: Document 07/07/20 13:23 SAK (Rec: 07/07/20 13:49 SAK [id number]) Manual Assessments Joint Mobility Assessment Joint Mobility Assessment decreased subtalar mobility all motions PT-OP-G Mobility & Gait Start: 07/03/20 17:36 Freq: Status: Active Protocol: Document 07/07/20 13:23 SAK (Rec: 07/07/20 13:49 SAK [id number]) OP Gait Assessment Gait Gait Assistance Required: Independent Assistive Devices Assistive Device None Gait Deviations General Gait Pattern Antalgic Factors Limiting Gait Function Factors Limiting Gait Function Decreased Strength,Pain Comments Gait Comments swelling Stair Climbing Evaluation Technique/Endurance Stair Climbing Technique Step to Step PT-OP-H Neuro Start: 07/03/20 17:36 Freq: Status: Active Protocol: Document 07/07/20 13:23 SAK (Rec: 07/07/20 13:49 SAK [id number]) Sensation Evaluation Gross Sensation Gross Sensation WNL PT-OP-J Posture/Palpation/Skin Start: 07/03/20 17:36 Freq: Status: Active Protocol: Document 07/07/20 13:23 SAK (Rec: 07/07/20 13:49 SAK [id number]) Posture Evaluation Position Standing Knee Posture (L) Genu Recurvatum Ankle/Foot Posture (L) Pronated,(L) Forefoot Eversion Foot Arch (L) Low Arch Comments Posture Comments no space between left great toe and 2nd toe at rest Palpation Assessment Location left ankle Palpation Location medial Palpation Findings Edema,Tenderness Palpation Details mild increase in warmth, no redness Skin Assessment Edema Assessment Left Ankle Edema Type Non-Pitting Edema Degree 2+ Edema Appearance Puffy Subjective Edema Description Pain Circumference Measurement 2 Location left malleolar Measurement (Centimeters) 27.8 1 Location right malleolar Measurement (Centimeters) 26.5 PT-OP-K Range of Motion Start: 07/03/20 17:36 Freq: Status: Active Protocol: Document 07/07/20 13:23 SAK (Rec: 07/07/20 13:49 [facility] [id number]) Ankle and Foot Goniometric Range of Motion Ankle and Foot Left Active Dorsiflexion with Knee Flexed 4 Plantarflexion 40 Inversion 24 Eversion 32 Right Active Dorsiflexion with Knee Flexed 8 Plantarflexion 55 Inversion 35 Eversion 37 Ankle and Foot ROM Limitations ROM Limitations Soft Tissue Tightness,Pain, Swelling PT-OP-M Strength Start: 07/03/20 17:36 Freq: Status: Active Protocol: Document 07/07/20 13:23 SAK (Rec: 07/07/20 13:49 [facility] [id number]) Knee Strength Knee Manual Muscle Testing mildred Flexion (S2) 4 Good Extension (L3) 4+ Good+ Ankle/Foot Strength Ankle and Foot Manual Muscle Testing Left Dorsiflexion (L4) 4 Good Plantarflexion (S1) 4 Good Inversion 4 Good Eversion (S1) 4- Good- Right Dorsiflexion (L4) 4+ Good+ Plantarflexion (S1) 5 Normal Inversion 5 Normal Eversion (S1) 5 Normal PT-OP-Q Treatments Start: 07/03/20 17:36 Freq: Status: Active Protocol: Document 07/16/20 10:32 [facility] (Rec: 07/16/20 11:05 [facility] [id number]) Cardio Equipment Recumbent Stepper (Sci-Fit) Duration (Minutes) 7 Resistance 2 Therapeutic Exercises Supine Exercises ankle inv Resistance L1 TB Reps/Minutes 10x ankle df Resistance L1 TB Reps/Minutes 10x Sitting Exercises BAPS Sitting Exercise Name front/back, neutral to inv Equipment Used L2 Reps/Minutes 10x ea Comments pain with ev marble tile picker Reps/Minutes 10x towel scrunch Reps/Minutes 10x short foot Reps/Minutes 5x Standing Exercises tandem stand Reps/Minutes 2x30 Comments UE support HC stretch Equipment Used DANIELA Reps/Minutes 2x30 Manual Therapy Treatment Taping left ankle Body Location left ankle Treatment Focus edema reduction, arch support Type of Tape Kinesio Tape Comments 2 fan strips, 1 I strip Self-Care/Home Management Treatment Education Patient Education Home Exercise Program Other Education updated written HEP PT-OP-R Modalities Start: 07/03/20 17:36 Freq: Status: Active Protocol: Document 07/16/20 10:32 AYO (Rec: 07/16/20 11:05 [facility] [id number]) Hot Pack/Cold Pack Treatment Cold Pack Location left ankle Patient Position Hooklying Treatment Duration (minutes) 10 Patient Tolerance Good Comments Cryocuff Ultrasound Therapy Treatment Left Ankle Treatment Duration (minutes) 8 Patient Position Hooklying Coupling Medium Ultrasound Gel Frequency Setting (mHz) 3 Mode Setting Continuous Duty Cycle 100% Intensity Setting (w/cm2) 1.0 PT-OP-T Assessment and Plan Start: 07/03/20 17:36 Freq: Status: Active Protocol: Document 07/16/20 10:32 AYO (Rec: 07/16/20 11:05 SAK [id number]) Physical Therapy Assessment Goals Four Impairment lower extremity functional scale 54%, Foot and ankle ability measure 43% Field Examiner Goal (LTG) Improve scores on LEFS and FAAM to at least 75% as evidence of patient's improved function LTG Duration 10/05/20 Three Impairment decreased ROM and strength left ankle Short Term Goal (STG) Patient to be instructed in HEP for purposes of ROM and strengthening left ankle STG Duration 08/18/20 Detention Goal (LTG) Patient to demonstrate ROM WNL , and 5/5 strength left ankle for improved functional mobility LTG Duration 10/05/20 Two Impairment swelling left ankle Detention Goal (LTG) Minimize swelling left ankle to no greater than 0.5 cm difference between left and right LTG Duration 10/05/20 One Impairment pain left ankle interrupting sleep and causing antalgic gait Short Term Goal (STG) Patient to report 50% reduction in pain STG Duration 08/18/20 Field Examiner Goal (LTG) Patient will report decrease in pain to allow her to resume normal sleep and ambulate usual distances without an assistive device. LTG Duration 10/05/20 Assessment Summary Assessment Patient demonstrated improved performance of short foot exercise after further instruction today, trial performance in standing as well; more difficult and with some pain. Trial ultrasound today for pain relief. Patient did not come to PT with cane and while gait improved she still ambulates with limp; cane encouraged until able to ambulate without limp. Physical Therapy Plan Frequency and Duration Frequency of Treatment 2x/Week Duration of Treatment 8 Plan of Care Start Date 07/07/20 Plan of Care End Date 10/05/20 Therapeutic Interventions Therapeutic Interventions Gait Training,Home Exercise Program,Joint Mobilizations, Manual Therapy,Patient/ Caregiver Education,Self-Care/ Home Management,Soft Tissue Mobilization,Taping, Therapeutic Activities, Therapeutic Exercises Modalities Cold Pack/Ice Massage,Electric Stimulation,Hot Packs, Ultrasound Other Therapeutic Interventions edema management Next Visit Focus/Plan Next Note Type Treatment Note Next Visit Plan Continue PT per POC, evaluate compression socks, response to ultrasound.
--- NOTE | 2020-07-21 10:44 | PT.OTN ---
Current Diagnoses Pain in left ankle and joints of left foot (07/21/20) Weakness (07/21/20) Edema, unspecified (07/21/20) Physical Therapy Treatment Note PT-OP-A Visit Information Start: 07/03/20 17:36 Freq: Status: Active Protocol: Document 07/21/20 10:05 SAK (Rec: 07/21/20 10:33 SAK [id number]) Out-Patient Physical Therapy Visit Information Visit Information Visit Type Treatment Note Visit Start Time 10:30 Visit Stop Time 11:25 Total Visit Minutes 55 Visit Number 4 PT-OP-B Current Condition Start: 07/03/20 17:36 Freq: Status: Active Protocol: Document 07/07/20 09:47 SAK (Rec: 07/07/20 10:15 SAK [id number]) Current Condition History of Current Condition Onset Date 1 year Current Complaints left ankle pain and swelling History of Current Condition gradual onset left ankle pain. No known injury. [employer] Principal recommended ice and heat, minimal effect. Wears Vionic shoes, reports less pain with the good arch. States walking very limited at this time due to the pain and that she knows she limps. Has not used cane or tried compression stockings Prior Treatments and Tests x-ray negative Treatment Goals Patient/Caregiver Goals minimize pain, be able to walk without pain Prior Functional Status Baseline Function- ADL's Independent Baseline Function- Mobility Independent Baseline Function- Gait no limp Current Functional Impairments (Reported) Functional Limitations- ADL's painful in standing Functional Limitations- Mobility/Gait limited to household and short distance community. Unable to go for long walks as previously due the pain PT-OP-C Subjective Start: 07/03/20 17:36 Freq: Status: Active Protocol: Document 07/21/20 10:05 SAK (Rec: 07/21/20 10:33 SAK [id number]) OP-PT Subjective Patient Comments Patient Comments Compression stockings came, feels they really helped with the swelling. Got Sole orthotics in her shoes, working up to being able to wear all day, at 4 hrs now. PT-OP-F Manual Assessment Start: 07/03/20 17:36 Freq: Status: Active Protocol: Document 07/07/20 13:23 SAK (Rec: 07/07/20 13:49 SAK [id number]) Manual Assessments Joint Mobility Assessment Joint Mobility Assessment decreased subtalar mobility all motions PT-OP-G Mobility & Gait Start: 07/03/20 17:36 Freq: Status: Active Protocol: Document 07/07/20 13:23 [facility] (Rec: 07/07/20 13:49 [facility] [id number]) OP Gait Assessment Gait Gait Assistance Required: Independent Assistive Devices Assistive Device None Gait Deviations General Gait Pattern Antalgic Factors Limiting Gait Function Factors Limiting Gait Function Decreased Strength,Pain Comments Gait Comments swelling Stair Climbing Evaluation Technique/Endurance Stair Climbing Technique Step to Step PT-OP-H Neuro Start: 07/03/20 17:36 Freq: Status: Active Protocol: Document 07/07/20 13:23 SAK (Rec: 07/07/20 13:49 [facility] [id number]) Sensation Evaluation Gross Sensation Gross Sensation WNL PT-OP-J Posture/Palpation/Skin Start: 07/03/20 17:36 Freq: Status: Active Protocol: Document 07/07/20 13:23 SAK (Rec: 07/07/20 13:49 [facility] [id number]) Posture Evaluation Position Standing Knee Posture (L) Genu Recurvatum Ankle/Foot Posture (L) Pronated,(L) Forefoot Eversion Foot Arch (L) Low Arch Comments Posture Comments no space between left great toe and 2nd toe at rest Palpation Assessment Location left ankle Palpation Location medial Palpation Findings Edema,Tenderness Palpation Details mild increase in warmth, no redness Skin Assessment Edema Assessment Left Ankle Edema Type Non-Pitting Edema Degree 2+ Edema Appearance Puffy Subjective Edema Description Pain Circumference Measurement 2 Location left malleolar Measurement (Centimeters) 27.8 1 Location right malleolar Measurement (Centimeters) 26.5 PT-OP-K Range of Motion Start: 07/03/20 17:36 Freq: Status: Active Protocol: Document 07/07/20 13:23 SAK (Rec: 07/07/20 13:49 [facility] [id number]) Ankle and Foot Goniometric Range of Motion Ankle and Foot Left Active Dorsiflexion with Knee Flexed 4 Plantarflexion 40 Inversion 24 Eversion 32 Right Active Dorsiflexion with Knee Flexed 8 Plantarflexion 55 Inversion 35 Eversion 37 Ankle and Foot ROM Limitations ROM Limitations Soft Tissue Tightness,Pain, Swelling PT-OP-M Strength Start: 07/03/20 17:36 Freq: Status: Active Protocol: Document 07/07/20 13:23 SAK (Rec: 07/07/20 13:49 SAK [id number]) Knee Strength Knee Manual Muscle Testing mildred Flexion (S2) 4 Good Extension (L3) 4+ Good+ Ankle/Foot Strength Ankle and Foot Manual Muscle Testing Left Dorsiflexion (L4) 4 Good Plantarflexion (S1) 4 Good Inversion 4 Good Eversion (S1) 4- Good- Right Dorsiflexion (L4) 4+ Good+ Plantarflexion (S1) 5 Normal Inversion 5 Normal Eversion (S1) 5 Normal PT-OP-Q Treatments Start: 07/03/20 17:36 Freq: Status: Active Protocol: Document 07/21/20 10:05 [facility] (Rec: 07/21/20 10:33 SAK [id number]) Cardio Equipment Recumbent Stepper (Sci-Fit) Duration (Minutes) 9 Resistance 3 Other cues for alignment Therapeutic Exercises Supine Exercises ankle inv Resistance L1 TB Reps/Minutes 10x ankle df Resistance L1 TB Reps/Minutes 10x Sitting Exercises ankle df Resistance L2 TB Reps/Minutes 10x ankle inv Resistance L2 TB Reps/Minutes 10x BAPS Sitting Exercise Name front/back, neutral to inv Equipment Used L2 Reps/Minutes 10x ea Comments pain with ev marble corn picker Comments HEP towel scrunch Comments HEP short foot Comments HEP Standing Exercises sit to stand Reps/Minutes 3x Comments cues for arch engagement short foot Reps/Minutes 10x Comments mirror for visual feedback tandem stand Reps/Minutes 2x30 each side Comments UE support, cues for alignment HC stretch Equipment Used DANIELA Reps/Minutes 2x30 Manual Therapy Treatment Taping left ankle Comments not done today due to skin irritation PT-OP-R Modalities Start: 07/03/20 17:36 Freq: Status: Active Protocol: Document 07/21/20 10:05 [facility] (Rec: 07/21/20 10:33 [facility] [id number]) Hot Pack/Cold Pack Treatment Cold Pack Location left ankle Patient Position Hooklying Treatment Duration (minutes) 10 Patient Tolerance Good Comments Cryocuff Ultrasound Therapy Treatment Left Ankle Treatment Duration (minutes) 8 Patient Position Hooklying Coupling Medium Ultrasound Gel Frequency Setting (mHz) 3 Mode Setting Continuous Duty Cycle 100% Intensity Setting (w/cm2) 1.0 PT-OP-T Assessment and Plan Start: 07/03/20 17:36 Freq: Status: Active Protocol: Document 07/21/20 10:05 AYO (Rec: 07/21/20 10:33 AYO [id number]) Physical Therapy Assessment Goals Four Impairment lower extremity functional scale 54%, Foot and ankle ability measure 43% Senior Living Goal (LTG) Improve scores on LEFS and FAAM to at least 75% as evidence of patient's improved function LTG Duration 10/05/20 Three Impairment decreased ROM and strength left ankle Short Term Goal (STG) Patient to be instructed in HEP for purposes of ROM and strengthening left ankle STG Duration 08/18/20 Floor Inspector Goal (LTG) Patient to demonstrate ROM WNL , and 5/5 strength left ankle for improved functional mobility LTG Duration 10/05/20 Two Impairment swelling left ankle Senior Living Goal (LTG) Minimize swelling left ankle to no greater than 0.5 cm difference between left and right LTG Duration 10/05/20 One Impairment pain left ankle interrupting sleep and causing antalgic gait Short Term Goal (STG) Patient to report 50% reduction in pain STG Duration 08/18/20 Floor Inspector Goal (LTG) Patient will report decrease in pain to allow her to resume normal sleep and ambulate usual distances without an assistive device. LTG Duration 10/05/20 Assessment Summary Assessment Pt. swelling and pain overall decreased. Has obtained orthotic (Sole), and compression socks. Compliant with HEP. Physical Therapy Plan Frequency and Duration Frequency of Treatment 2x/Week Duration of Treatment 8 Plan of Care Start Date 07/07/20 Plan of Care End Date 10/05/20 Therapeutic Interventions Therapeutic Interventions Gait Training,Home Exercise Program,Joint Mobilizations, Manual Therapy,Patient/ Caregiver Education,Self-Care/ Home Management,Soft Tissue Mobilization,Taping, Therapeutic Activities, Therapeutic Exercises Modalities Cold Pack/Ice Massage,Electric Stimulation,Hot Packs, Ultrasound Other Therapeutic Interventions edema management Next Visit Focus/Plan Next Note Type Treatment Note Next Visit Plan Continue PT per POC, progress with ther ex for foot and ankle ROM and strengthening.
--- NOTE | 2020-07-23 08:13 | PT-OP ANOTE ---
cancelled PT appointment today, reason unknown
--- NOTE | 2020-07-28 13:01 | PT-OP ANOTE ---
cancelled due to ill
--- NOTE | 2020-07-30 12:35 | PT.OTN ---
Current Diagnoses Pain in left ankle and joints of left foot (07/30/20) Weakness (07/30/20) Edema, unspecified (07/30/20) Physical Therapy Treatment Note PT-OP-A Visit Information Start: 07/03/20 17:36 Freq: Status: Active Protocol: Document 07/30/20 09:43 SAK (Rec: 07/30/20 10:31 SAK [id number]) Out-Patient Physical Therapy Visit Information Visit Information Visit Type Treatment Note Visit Start Time 09:45 Visit Stop Time 10:43 Total Visit Minutes 58 Visit Number 5 PT-OP-B Current Condition Start: 07/03/20 17:36 Freq: Status: Active Protocol: Document 07/07/20 09:47 SAK (Rec: 07/07/20 10:15 SAK [id number]) Current Condition History of Current Condition Onset Date 1 year Current Complaints left ankle pain and swelling History of Current Condition gradual onset left ankle pain. No known injury. Financial Institution Vice President recommended ice and heat, minimal effect. Wears Vionic shoes, reports less pain with the good arch. States walking very limited at this time due to the pain and that she knows she limps. Has not used cane or tried compression stockings Prior Treatments and Tests x-ray negative Treatment Goals Patient/Caregiver Goals minimize pain, be able to walk without pain Prior Functional Status Baseline Function- ADL's Independent Baseline Function- Mobility Independent Baseline Function- Gait no limp Current Functional Impairments (Reported) Functional Limitations- ADL's painful in standing Functional Limitations- Mobility/Gait limited to household and short distance community. Unable to go for long walks as previously due the pain PT-OP-C Subjective Start: 07/03/20 17:36 Freq: Status: Active Protocol: Document 07/30/20 09:43 SAK (Rec: 07/30/20 10:31 SAK [id number]) OP-PT Subjective Patient Comments Patient Comments Had to miss PT due to ' s hospitalization due to bowel obstruction. Got compression socks ([place]) and reports decrease in swelling. Good tolerance for ultrasound last session. PT-OP-F Manual Assessment Start: 07/03/20 17:36 Freq: Status: Active Protocol: Document 07/07/20 13:23 SAK (Rec: 07/07/20 13:49 SAK [id number]) Manual Assessments Joint Mobility Assessment Joint Mobility Assessment decreased subtalar mobility all motions PT-OP-G Mobility & Gait Start: 07/03/20 17:36 Freq: Status: Active Protocol: Document 07/07/20 13:23 [facility] (Rec: 07/07/20 13:49 [facility] [id number]) OP Gait Assessment Gait Gait Assistance Required: Independent Assistive Devices Assistive Device None Gait Deviations General Gait Pattern Antalgic Factors Limiting Gait Function Factors Limiting Gait Function Decreased Strength,Pain Comments Gait Comments swelling Stair Climbing Evaluation Technique/Endurance Stair Climbing Technique Step to Step PT-OP-H Neuro Start: 07/03/20 17:36 Freq: Status: Active Protocol: Document 07/07/20 13:23 SAK (Rec: 07/07/20 13:49 [facility] [id number]) Sensation Evaluation Gross Sensation Gross Sensation WNL PT-OP-J Posture/Palpation/Skin Start: 07/03/20 17:36 Freq: Status: Active Protocol: Document 07/07/20 13:23 [facility] (Rec: 07/07/20 13:49 [facility] [id number]) Posture Evaluation Position Standing Knee Posture (L) Genu Recurvatum Ankle/Foot Posture (L) Pronated,(L) Forefoot Eversion Foot Arch (L) Low Arch Comments Posture Comments no space between left great toe and 2nd toe at rest Palpation Assessment Location left ankle Palpation Location medial Palpation Findings Edema,Tenderness Palpation Details mild increase in warmth, no redness Skin Assessment Edema Assessment Left Ankle Edema Type Non-Pitting Edema Degree 2+ Edema Appearance Puffy Subjective Edema Description Pain Circumference Measurement 2 Location left malleolar Measurement (Centimeters) 27.8 1 Location right malleolar Measurement (Centimeters) 26.5 PT-OP-K Range of Motion Start: 07/03/20 17:36 Freq: Status: Active Protocol: Document 07/07/20 13:23 SAK (Rec: 07/07/20 13:49 [facility] [id number]) Ankle and Foot Goniometric Range of Motion Ankle and Foot Left Active Dorsiflexion with Knee Flexed 4 Plantarflexion 40 Inversion 24 Eversion 32 Right Active Dorsiflexion with Knee Flexed 8 Plantarflexion 55 Inversion 35 Eversion 37 Ankle and Foot ROM Limitations ROM Limitations Soft Tissue Tightness,Pain, Swelling PT-OP-M Strength Start: 10/15/20 17:36 Freq: Status: Active Protocol: Document 07/07/20 13:23 SAK (Rec: 07/07/20 13:49 [facility] [id number]) Knee Strength Knee Manual Muscle Testing mildred Flexion (S2) 4 Good Extension (L3) 4+ Good+ Ankle/Foot Strength Ankle and Foot Manual Muscle Testing Left Dorsiflexion (L4) 4 Good Plantarflexion (S1) 4 Good Inversion 4 Good Eversion (S1) 4- Good- Right Dorsiflexion (L4) 4+ Good+ Plantarflexion (S1) 5 Normal Inversion 5 Normal Eversion (S1) 5 Normal PT-OP-Q Treatments Start: 07/03/20 17:36 Freq: Status: Active Protocol: Document 07/30/20 09:43 SAK (Rec: 07/30/20 10:31 SAK [id number]) Cardio Equipment Recumbent Stepper (Sci-Fit) Duration (Minutes) 10 Resistance 3 Other cues for alignment Gym Equipment Shuttle Balance chains red Details fwd/bck bal and wt shift Therapeutic Exercises Sitting Exercises ankle ev Resistance L2 TB Reps/Minutes 10x ankle df Resistance L2 TB Reps/Minutes 10x ankle inv Resistance L2 TB Reps/Minutes 10x BAPS Sitting Exercise Name front/back, neutral to inv Equipment Used L4 Reps/Minutes 10x ea Comments pain with ev Manual Therapy Treatment Taping left ankle Comments no tape required; patient wearing compression socks PT-OP-R Modalities Start: 07/03/20 17:36 Freq: Status: Active Protocol: Document 07/30/20 09:43 SAK (Rec: 07/30/20 10:31 SAK [id number]) Hot Pack/Cold Pack Treatment Cold Pack Location left ankle Patient Position Hooklying Treatment Duration (minutes) 10 Patient Tolerance Good Comments Cryocuff Ultrasound Therapy Treatment Left Ankle Treatment Duration (minutes) 8 Patient Position Hooklying Coupling Medium Ultrasound Gel Frequency Setting (mHz) 3 Mode Setting Continuous Duty Cycle 100% Intensity Setting (w/cm2) 1.0 PT-OP-T Assessment and Plan Start: 07/03/20 17:36 Freq: Status: Active Protocol: Document 07/30/20 09:43 SAK (Rec: 07/30/20 10:31 SAK [id number]) Physical Therapy Assessment Goals Four Impairment lower extremity functional scale 54%, Foot and ankle ability measure 43% Nursing Care Partner Goal (LTG) Improve scores on LEFS and FAAM to at least 75% as evidence of patient's improved function LTG Duration 10/05/20 Three Impairment decreased ROM and strength left ankle Short Term Goal (STG) Patient to be instructed in HEP for purposes of ROM and strengthening left ankle STG Duration 08/18/20 Nursing Care Partner Goal (LTG) Patient to demonstrate ROM WNL , and 5/5 strength left ankle for improved functional mobility LTG Duration 10/05/20 Two Impairment swelling left ankle Nursing Care Partner Goal (LTG) Minimize swelling left ankle to no greater than 0.5 cm difference between left and right LTG Duration 10/05/20 One Impairment pain left ankle interrupting sleep and causing antalgic gait Short Term Goal (STG) Patient to report 50% reduction in pain STG Duration 08/18/20 Usp Goal (LTG) Patient will report decrease in pain to allow her to resume normal sleep and ambulate usual distances without an assistive device. LTG Duration 10/05/20 Assessment Summary Assessment some muscle burning in ankle with shuttle balance today. Able to progress to level 4 with BAPS. Reduced edema with compression sock use. Physical Therapy Plan Frequency and Duration Frequency of Treatment 2x/Week Duration of Treatment 8 Plan of Care Start Date 07/07/20 Plan of Care End Date 10/05/20 Therapeutic Interventions Therapeutic Interventions Gait Training,Home Exercise Program,Joint Mobilizations, Manual Therapy,Patient/ Caregiver Education,Self-Care/ Home Management,Soft Tissue Mobilization,Taping, Therapeutic Activities, Therapeutic Exercises Modalities Cold Pack/Ice Massage,Electric Stimulation,Hot Packs, Ultrasound Other Therapeutic Interventions edema management Next Visit Focus/Plan Next Note Type Treatment Note Next Visit Plan Continue PT per POC, progress with ther ex for foot and ankle ROM and strengthening.
--- NOTE | 2020-08-18 17:12 | PT.OTN ---
Current Diagnoses Pain in left ankle and joints of left foot (08/18/20) Weakness (08/18/20) Edema, unspecified (08/18/20) Physical Therapy Treatment Note PT-OP-A Visit Information Start: 07/03/20 17:36 Freq: Status: Active Protocol: Document 08/18/20 09:51 SAK (Rec: 08/18/20 10:38 SAK [id number]) Out-Patient Physical Therapy Visit Information Visit Information Visit Type Treatment Note Visit Start Time 09:45 Visit Stop Time 10:43 Total Visit Minutes 58 Visit Number 6 PT-OP-B Current Condition Start: 07/03/20 17:36 Freq: Status: Active Protocol: Document 07/07/20 09:47 SAK (Rec: 07/07/20 10:15 SAK [id number]) Current Condition History of Current Condition Onset Date 1 year Current Complaints left ankle pain and swelling History of Current Condition gradual onset left ankle pain. No known injury. Air Traffic Systems Technician recommended ice and heat, minimal effect. Wears Vionic shoes, reports less pain with the good arch. States walking very limited at this time due to the pain and that she knows she limps. Has not used cane or tried compression stockings Prior Treatments and Tests x-ray negative Treatment Goals Patient/Caregiver Goals minimize pain, be able to walk without pain Prior Functional Status Baseline Function- ADL's Independent Baseline Function- Mobility Independent Baseline Function- Gait no limp Current Functional Impairments (Reported) Functional Limitations- ADL's painful in standing Functional Limitations- Mobility/Gait limited to household and short distance community. Unable to go for long walks as previously due the pain PT-OP-C Subjective Start: 07/03/20 17:36 Freq: Status: Active Protocol: Document 08/18/20 09:51 SAK (Rec: 08/18/20 10:38 SAK [id number]) OP-PT Subjective Patient Comments Patient Comments No PT visits since Jul 30 due to appointments not available. Pain increases with increased standing. Wearing compression socks all the time . PT-OP-F Manual Assessment Start: 07/03/20 17:36 Freq: Status: Active Protocol: Document 07/07/20 13:23 SAK (Rec: 07/07/20 13:49 SAK [id number]) Manual Assessments Joint Mobility Assessment Joint Mobility Assessment decreased subtalar mobility all motions PT-OP-G Mobility & Gait Start: 07/03/20 17:36 Freq: Status: Active Protocol: Document 07/07/20 13:23 SAK (Rec: 07/07/20 13:49 SAK [id number]) OP Gait Assessment Gait Gait Assistance Required: Independent Assistive Devices Assistive Device None Gait Deviations General Gait Pattern Antalgic Factors Limiting Gait Function Factors Limiting Gait Function Decreased Strength,Pain Comments Gait Comments swelling Stair Climbing Evaluation Technique/Endurance Stair Climbing Technique Step to Step PT-OP-H Neuro Start: 07/03/20 17:36 Freq: Status: Active Protocol: Document 07/07/20 13:23 SAK (Rec: 07/07/20 13:49 SAK [id number]) Sensation Evaluation Gross Sensation Gross Sensation WNL PT-OP-J Posture/Palpation/Skin Start: 07/03/20 17:36 Freq: Status: Active Protocol: Document 07/07/20 13:23 SAK (Rec: 07/07/20 13:49 SAK [id number]) Posture Evaluation Position Standing Knee Posture (L) Genu Recurvatum Ankle/Foot Posture (L) Pronated,(L) Forefoot Eversion Foot Arch (L) Low Arch Comments Posture Comments no space between left great toe and 2nd toe at rest Palpation Assessment Location left ankle Palpation Location medial Palpation Findings Edema,Tenderness Palpation Details mild increase in warmth, no redness Skin Assessment Edema Assessment Left Ankle Edema Type Non-Pitting Edema Degree 2+ Edema Appearance Puffy Subjective Edema Description Pain Circumference Measurement 2 Location left malleolar Measurement (Centimeters) 27.8 1 Location right malleolar Measurement (Centimeters) 26.5 PT-OP-K Range of Motion Start: 07/03/20 17:36 Freq: Status: Active Protocol: Document 07/07/20 13:23 SAK (Rec: 07/07/20 13:49 [facility] [id number]) Ankle and Foot Goniometric Range of Motion Ankle and Foot Left Active Dorsiflexion with Knee Flexed 4 Plantarflexion 40 Inversion 24 Eversion 32 Right Active Dorsiflexion with Knee Flexed 8 Plantarflexion 55 Inversion 35 Eversion 37 Ankle and Foot ROM Limitations ROM Limitations Soft Tissue Tightness,Pain, Swelling PT-OP-M Strength Start: 07/03/20 17:36 Freq: Status: Active Protocol: Document 07/07/20 13:23 [facility] (Rec: 07/07/20 13:49 [facility] [id number]) Knee Strength Knee Manual Muscle Testing mildred Flexion (S2) 4 Good Extension (L3) 4+ Good+ Ankle/Foot Strength Ankle and Foot Manual Muscle Testing Left Dorsiflexion (L4) 4 Good Plantarflexion (S1) 4 Good Inversion 4 Good Eversion (S1) 4- Good- Right Dorsiflexion (L4) 4+ Good+ Plantarflexion (S1) 5 Normal Inversion 5 Normal Eversion (S1) 5 Normal PT-OP-Q Treatments Start: 07/03/20 17:36 Freq: Status: Active Protocol: Document 08/18/20 09:51 [facility] (Rec: 08/18/20 10:38 [facility] [id number]) Cardio Equipment Recumbent Stepper (Sci-Fit) Duration (Minutes) 5 Resistance 3 Other cues for alignment Recumbent Bicycle Duration (Minutes) 5 Resistance 2 Other cues for alignment Gym Equipment Shuttle Balance chains red Details fwd/bck bal and wt shift Therapeutic Exercises Sitting Exercises ankle ev Resistance L2 TB Reps/Minutes 10x ankle df Resistance L2 TB Reps/Minutes 10x ankle inv Resistance L2 TB Reps/Minutes 10x BAPS Sitting Exercise Name front/back, neutral to inv Equipment Used L4 Reps/Minutes 10x ea Comments pain with ev marble warp picker Comments HEP towel scrunch Comments HEP short foot Comments HEP PT-OP-R Modalities Start: 07/03/20 17:36 Freq: Status: Active Protocol: Document 08/18/20 09:51 [facility] (Rec: 08/18/20 10:38 [facility] [id number]) Hot Pack/Cold Pack Treatment Cold Pack Location left ankle Patient Position Hooklying Treatment Duration (minutes) 10 Patient Tolerance Good Comments Cryocuff Ultrasound Therapy Treatment Left Ankle Treatment Duration (minutes) 8 Patient Position Hooklying Coupling Medium Ultrasound Gel Frequency Setting (mHz) 3 Mode Setting Continuous Duty Cycle 100% Intensity Setting (w/cm2) 1.0 PT-OP-T Assessment and Plan Start: 07/03/20 17:36 Freq: Status: Active Protocol: Document 08/18/20 09:51 [facility] (Rec: 08/18/20 10:38 [facility] [id number]) Physical Therapy Assessment Goals Four Impairment lower extremity functional scale 54%, Foot and ankle ability measure 43% Wine And Spirits Clerk Goal (LTG) Improve scores on LEFS and FAAM to at least 75% as evidence of patient's improved function LTG Duration 10/05/20 Three Impairment decreased ROM and strength left ankle Short Term Goal (STG) Patient to be instructed in HEP for purposes of ROM and strengthening left ankle STG Duration 08/18/20 Long-Term Goal (LTG) Patient to demonstrate ROM WNL , and 5/5 strength left ankle for improved functional mobility LTG Duration 10/05/20 Two Impairment swelling left ankle Long-Term Goal (LTG) Minimize swelling left ankle to no greater than 0.5 cm difference between left and right LTG Duration 10/05/20 One Impairment pain left ankle interrupting sleep and causing antalgic gait Short Term Goal (STG) Patient to report 50% reduction in pain STG Duration 08/18/20 Wine And Spirits Clerk Goal (LTG) Patient will report decrease in pain to allow her to resume normal sleep and ambulate usual distances without an assistive device. LTG Duration 10/05/20 Assessment Summary Assessment Denied muscle burning during shuttle balance activity today . Overall improved activity tolerance. Decreased but persistent pain. Physical Therapy Plan Frequency and Duration Frequency of Treatment 2x/Week Duration of Treatment 8 Plan of Care Start Date 07/07/20 Plan of Care End Date 10/05/20 Therapeutic Interventions Therapeutic Interventions Gait Training,Home Exercise Program,Joint Mobilizations, Manual Therapy,Patient/ Caregiver Education,Self-Care/ Home Management,Soft Tissue Mobilization,Taping, Therapeutic Activities, Therapeutic Exercises Modalities Cold Pack/Ice Massage,Electric Stimulation,Hot Packs, Ultrasound Other Therapeutic Interventions edema management Next Visit Focus/Plan Next Note Type Treatment Note Next Visit Plan STM and MFR to foot, ankle, calf to improve soft tissue mobility, address any trigger points to decrease pain and improve mobility.
--- NOTE | 2020-08-20 10:07 | PT.OTN ---
Current Diagnoses Pain in left ankle and joints of left foot (08/20/20) Weakness (08/20/20) Edema, unspecified (08/20/20) Physical Therapy Treatment Note PT-OP-A Visit Information Start: 07/03/20 17:36 Freq: Status: Active Protocol: Document 08/20/20 09:02 [facility] (Rec: 08/20/20 09:35 [facility] [id number]) Out-Patient Physical Therapy Visit Information Visit Information Visit Type Treatment Note Visit Start Time 09:00 Visit Stop Time 10:00 Total Visit Minutes 58 Visit Number 7 PT-OP-B Current Condition Start: 07/03/20 17:36 Freq: Status: Active Protocol: Document 07/07/20 09:47 [facility] (Rec: 07/07/20 10:15 [facility] [id number]) Current Condition History of Current Condition Onset Date 1 year Current Complaints left ankle pain and swelling History of Current Condition gradual onset left ankle pain. No known injury. Adjunct Psychology Instructor recommended ice and heat, minimal effect. Wears Vionic shoes, reports less pain with the good arch. States walking very limited at this time due to the pain and that she knows she limps. Has not used cane or tried compression stockings Prior Treatments and Tests x-ray negative Treatment Goals Patient/Caregiver Goals minimize pain, be able to walk without pain Prior Functional Status Baseline Function- ADL's Independent Baseline Function- Mobility Independent Baseline Function- Gait no limp Current Functional Impairments (Reported) Functional Limitations- ADL's painful in standing Functional Limitations- Mobility/Gait limited to household and short distance community. Unable to go for long walks as previously due the pain PT-OP-C Subjective Start: 07/03/20 17:36 Freq: Status: Active Protocol: Document 08/20/20 09:02 [facility] (Rec: 08/20/20 09:35 [facility] [id number]) OP-PT Subjective Patient Comments Patient Comments pain 40% better since starting PT PT-OP-F Manual Assessment Start: 07/03/20 17:36 Freq: Status: Active Protocol: Document 07/07/20 13:23 [facility] (Rec: 07/07/20 13:49 [facility] [id number]) Manual Assessments Joint Mobility Assessment Joint Mobility Assessment decreased subtalar mobility all motions PT-OP-G Mobility & Gait Start: 07/03/20 17:36 Freq: Status: Active Protocol: Document 07/07/20 13:23 [facility] (Rec: 07/07/20 13:49 [facility] [id number]) OP Gait Assessment Gait Gait Assistance Required: Independent Assistive Devices Assistive Device None Gait Deviations General Gait Pattern Antalgic Factors Limiting Gait Function Factors Limiting Gait Function Decreased Strength,Pain Comments Gait Comments swelling Stair Climbing Evaluation Technique/Endurance Stair Climbing Technique Step to Step PT-OP-H Neuro Start: 07/03/20 17:36 Freq: Status: Active Protocol: Document 07/07/20 13:23 [facility] (Rec: 07/07/20 13:49 [facility] [id number]) Sensation Evaluation Gross Sensation Gross Sensation WNL PT-OP-J Posture/Palpation/Skin Start: 07/03/20 17:36 Freq: Status: Active Protocol: Document 07/07/20 13:23 [facility] (Rec: 07/07/20 13:49 [facility] [id number]) Posture Evaluation Position Standing Knee Posture (L) Genu Recurvatum Ankle/Foot Posture (L) Pronated,(L) Forefoot Eversion Foot Arch (L) Low Arch Comments Posture Comments no space between left great toe and 2nd toe at rest Palpation Assessment Location left ankle Palpation Location medial Palpation Findings Edema,Tenderness Palpation Details mild increase in warmth, no redness Skin Assessment Edema Assessment Left Ankle Edema Type Non-Pitting Edema Degree 2+ Edema Appearance Puffy Subjective Edema Description Pain Circumference Measurement 2 Location left malleolar Measurement (Centimeters) 27.8 1 Location right malleolar Measurement (Centimeters) 26.5 PT-OP-K Range of Motion Start: 07/03/20 17:36 Freq: Status: Active Protocol: Document 07/07/20 13:23 [facility] (Rec: 07/07/20 13:49 [facility] [id number]) Ankle and Foot Goniometric Range of Motion Ankle and Foot Left Active Dorsiflexion with Knee Flexed 4 Plantarflexion 40 Inversion 24 Eversion 32 Right Active Dorsiflexion with Knee Flexed 8 Plantarflexion 55 Inversion 35 Eversion 37 Ankle and Foot ROM Limitations ROM Limitations Soft Tissue Tightness,Pain, Swelling PT-OP-M Strength Start: 07/03/20 17:36 Freq: Status: Active Protocol: Document 07/07/20 13:23 [facility] (Rec: 07/07/20 13:49 [facility] [id number]) Knee Strength Knee Manual Muscle Testing mildred Flexion (S2) 4 Good Extension (L3) 4+ Good+ Ankle/Foot Strength Ankle and Foot Manual Muscle Testing Left Dorsiflexion (L4) 4 Good Plantarflexion (S1) 4 Good Inversion 4 Good Eversion (S1) 4- Good- Right Dorsiflexion (L4) 4+ Good+ Plantarflexion (S1) 5 Normal Inversion 5 Normal Eversion (S1) 5 Normal PT-OP-Q Treatments Start: 07/03/20 17:36 Freq: Status: Active Protocol: Document 08/20/20 09:02 [facility] (Rec: 08/20/20 09:35 [facility] [id number]) Gym Equipment Shuttle Recovery heel raises Details emphasis on neutral LE alignment Resistance 37 Reps/Time 10x2 Unilateral Heel Raises Details emphasis on neutral LE alignment Resistance 37 Reps/Time 10x2 Bilateral Squats Details emphasis on neutral LE alignment Resistance 50 Reps/Time 10x2 Shuttle Balance chains red Details fwd/bck and side to side bal and wt shift Therapeutic Exercises Sitting Exercises BAPS Sitting Exercise Name front/back, neutral to inv Equipment Used L4 Reps/Minutes 10x ea Comments pain with ev Standing Exercises HC stretch Equipment Used DANIELA Reps/Minutes 2x30 Comments neutral and with IR Manual Therapy Treatment Soft Tissue Mobilization 1 Body Location left gastroc, plantar fascia Intensity/Depth Moderate Body Position Hooklying PT-OP-R Modalities Start: 07/03/20 17:36 Freq: Status: Active Protocol: Document 08/20/20 09:02 [facility] (Rec: 08/20/20 09:35 [facility] [id number]) Hot Pack/Cold Pack Treatment Cold Pack Location left ankle Patient Position Hooklying Treatment Duration (minutes) 10 Patient Tolerance Good Comments Cryocuff Ultrasound Therapy Treatment Left Ankle Treatment Duration (minutes) 8 Patient Position Hooklying Coupling Medium Ultrasound Gel Frequency Setting (mHz) 3 Mode Setting Continuous Duty Cycle 100% Intensity Setting (w/cm2) 1.0 PT-OP-T Assessment and Plan Start: 07/03/20 17:36 Freq: Status: Active Protocol: Document 08/20/20 09:02 [facility] (Rec: 08/20/20 09:35 [facility] [id number]) Physical Therapy Assessment Goals Four Impairment lower extremity functional scale 54%, Foot and ankle ability measure 43% Half-Way Goal (LTG) Improve scores on LEFS and FAAM to at least 75% as evidence of patient's improved function LTG Duration 10/05/20 Three Impairment decreased ROM and strength left ankle Short Term Goal (STG) Patient to be instructed in HEP for purposes of ROM and strengthening left ankle STG Duration 08/18/20 Half-Way Goal (LTG) Patient to demonstrate ROM WNL , and 5/5 strength left ankle for improved functional mobility LTG Duration 10/05/20 Two Impairment swelling left ankle Half-Way Goal (LTG) Minimize swelling left ankle to no greater than 0.5 cm difference between left and right LTG Duration 10/05/20 One Impairment pain left ankle interrupting sleep and causing antalgic gait Short Term Goal (STG) Patient to report 50% reduction in pain STG Duration 08/18/20 Casino Change Attendant Goal (LTG) Patient will report decrease in pain to allow her to resume normal sleep and ambulate usual distances without an assistive device. LTG Duration 10/05/20 Assessment Summary Assessment mirror for visual feedback for LE alignment with all standing exercises. Patient reporting 40% decrease in pain Physical Therapy Plan Frequency and Duration Frequency of Treatment 2x/Week Duration of Treatment 8 Plan of Care Start Date 07/07/20 Plan of Care End Date 10/05/20 Therapeutic Interventions Therapeutic Interventions Gait Training,Home Exercise Program,Joint Mobilizations, Manual Therapy,Patient/ Caregiver Education,Self-Care/ Home Management,Soft Tissue Mobilization,Taping, Therapeutic Activities, Therapeutic Exercises Modalities Cold Pack/Ice Massage,Electric Stimulation,Hot Packs, Ultrasound Other Therapeutic Interventions edema management Next Visit Focus/Plan Next Note Type Treatment Note Next Visit Plan Increase resistance on shuttle leg press as tolerated, continue functional closed chain exercises as toleated with cues for LE alignment. Patient to wear more supportive footwear next session as current shoes too narrow in midfoot
--- NOTE | 2020-08-25 11:43 | PT.OTN ---
Current Diagnoses Pain in left ankle and joints of left foot (08/25/20) Weakness (08/25/20) Edema, unspecified (08/25/20) Physical Therapy Treatment Note PT-OP-A Visit Information Start: 07/03/20 17:36 Freq: Status: Active Protocol: Document 08/25/20 09:45 [facility] (Rec: 08/25/20 10:30 [facility] [id number]) Out-Patient Physical Therapy Visit Information Visit Information Visit Type Treatment Note Visit Start Time 09:45 Visit Stop Time 10:42 Total Visit Minutes 57 Visit Number 8 PT-OP-B Current Condition Start: 07/03/20 17:36 Freq: Status: Active Protocol: Document 07/07/20 09:47 [facility] (Rec: 07/07/20 10:15 [facility] [id number]) Current Condition History of Current Condition Onset Date 1 year Current Complaints left ankle pain and swelling History of Current Condition gradual onset left ankle pain. No known injury. Revenue Accounting Manager recommended ice and heat, minimal effect. Wears Vionic shoes, reports less pain with the good arch. States walking very limited at this time due to the pain and that she knows she limps. Has not used cane or tried compression stockings Prior Treatments and Tests x-ray negative Treatment Goals Patient/Caregiver Goals minimize pain, be able to walk without pain Prior Functional Status Baseline Function- ADL's Independent Baseline Function- Mobility Independent Baseline Function- Gait no limp Current Functional Impairments (Reported) Functional Limitations- ADL's painful in standing Functional Limitations- Mobility/Gait limited to household and short distance community. Unable to go for long walks as previously due the pain PT-OP-C Subjective Start: 07/03/20 17:36 Freq: Status: Active Protocol: Document 08/25/20 09:45 [facility] (Rec: 08/25/20 10:30 [facility] [id number]) OP-PT Subjective Patient Comments Patient Comments over weekend walked about 1 - 1 1/2 blocks and states pain increased. Reports wasn't wearing her orthotics, might be why. States her foot hurts when using her recumbant ex bike at home, not sure why; agreed to have take a picture of her on it. bought a treadmill, patient hasn't used one before. PT-OP-F Manual Assessment Start: 07/03/20 17:36 Freq: Status: Active Protocol: Document 07/07/20 13:23 [facility] (Rec: 07/07/20 13:49 [facility] [id number]) Manual Assessments Joint Mobility Assessment Joint Mobility Assessment decreased subtalar mobility all motions PT-OP-G Mobility & Gait Start: 07/03/20 17:36 Freq: Status: Active Protocol: Document 07/07/20 13:23 [facility] (Rec: 07/07/20 13:49 [facility] [id number]) OP Gait Assessment Gait Gait Assistance Required: Independent Assistive Devices Assistive Device None Gait Deviations General Gait Pattern Antalgic Factors Limiting Gait Function Factors Limiting Gait Function Decreased Strength,Pain Comments Gait Comments swelling Stair Climbing Evaluation Technique/Endurance Stair Climbing Technique Step to Step PT-OP-H Neuro Start: 07/03/20 17:36 Freq: Status: Active Protocol: Document 07/07/20 13:23 [facility] (Rec: 07/07/20 13:49 [facility] [id number]) Sensation Evaluation Gross Sensation Gross Sensation WNL PT-OP-J Posture/Palpation/Skin Start: 07/03/20 17:36 Freq: Status: Active Protocol: Document 07/07/20 13:23 [facility] (Rec: 07/07/20 13:49 [facility] [id number]) Posture Evaluation Position Standing Knee Posture (L) Genu Recurvatum Ankle/Foot Posture (L) Pronated,(L) Forefoot Eversion Foot Arch (L) Low Arch Comments Posture Comments no space between left great toe and 2nd toe at rest Palpation Assessment Location left ankle Palpation Location medial Palpation Findings Edema,Tenderness Palpation Details mild increase in warmth, no redness Skin Assessment Edema Assessment Left Ankle Edema Type Non-Pitting Edema Degree 2+ Edema Appearance Puffy Subjective Edema Description Pain Circumference Measurement 2 Location left malleolar Measurement (Centimeters) 27.8 1 Location right malleolar Measurement (Centimeters) 26.5 PT-OP-K Range of Motion Start: 07/03/20 17:36 Freq: Status: Active Protocol: Document 07/07/20 13:23 [facility] (Rec: 07/07/20 13:49 [facility] [id number]) Ankle and Foot Goniometric Range of Motion Ankle and Foot Left Active Dorsiflexion with Knee Flexed 4 Plantarflexion 40 Inversion 24 Eversion 32 Right Active Dorsiflexion with Knee Flexed 8 Plantarflexion 55 Inversion 35 Eversion 37 Ankle and Foot ROM Limitations ROM Limitations Soft Tissue Tightness,Pain, Swelling PT-OP-M Strength Start: 07/03/20 17:36 Freq: Status: Active Protocol: Document 07/07/20 13:23 [facility] (Rec: 07/07/20 13:49 [facility] [id number]) Knee Strength Knee Manual Muscle Testing mildred Flexion (S2) 4 Good Extension (L3) 4+ Good+ Ankle/Foot Strength Ankle and Foot Manual Muscle Testing Left Dorsiflexion (L4) 4 Good Plantarflexion (S1) 4 Good Inversion 4 Good Eversion (S1) 4- Good- Right Dorsiflexion (L4) 4+ Good+ Plantarflexion (S1) 5 Normal Inversion 5 Normal Eversion (S1) 5 Normal PT-OP-Q Treatments Start: 07/03/20 17:36 Freq: Status: Active Protocol: Document 08/25/20 09:45 [facility] (Rec: 08/25/20 10:30 [facility] [id number]) Cardio Equipment Recumbent Elliptical (Biodex) Duration (Minutes) 2 Resistance 2 Seat Position 7 Recumbent Bicycle Duration (Minutes) 8 Resistance 3-4 Seat Position 5 Other cues for alignment Treadmill Duration (Minutes) 5 Speed 0.6-0.8 Incline 0 Gym Equipment Shuttle Balance chains red Details fwd/bck and side to side bal and wt shift Therapeutic Exercises Sitting Exercises BAPS Sitting Exercise Name front/back, neutral to inv Equipment Used L4 Reps/Minutes 10x ea Comments no pain Standing Exercises HC stretch Equipment Used DANIELA Reps/Minutes 2x30 Comments neutral and with IR Manual Therapy Treatment Soft Tissue Mobilization 1 Body Location left gastroc, plantar fascia Intensity/Depth Moderate Body Position Hooklying Self-Care/Home Management Treatment Education Patient Education Pain Management Other Education wear ortotics, especially if going for a walk PT-OP-R Modalities Start: 07/03/20 17:36 Freq: Status: Active Protocol: Document 08/25/20 09:45 [facility] (Rec: 08/25/20 10:30 [facility] [id number]) Hot Pack/Cold Pack Treatment Cold Pack Location left ankle Patient Position Hooklying Treatment Duration (minutes) 10 Patient Tolerance Good Comments Cryocuff Ultrasound Therapy Treatment Left Ankle Treatment Duration (minutes) 8 Patient Position Hooklying Coupling Medium Ultrasound Gel Frequency Setting (mHz) 3 Mode Setting Continuous Duty Cycle 100% Intensity Setting (w/cm2) 1.0 PT-OP-T Assessment and Plan Start: 07/03/20 17:36 Freq: Status: Active Protocol: Document 08/25/20 09:45 [facility] (Rec: 08/25/20 10:30 [facility] [id number]) Physical Therapy Assessment Goals Four Impairment lower extremity functional scale 54%, Foot and ankle ability measure 43% Sample Coordinator Goal (LTG) Improve scores on LEFS and FAAM to at least 75% as evidence of patient's improved function LTG Duration 10/05/20 Three Impairment decreased ROM and strength left ankle Short Term Goal (STG) Patient to be instructed in HEP for purposes of ROM and strengthening left ankle STG Duration 08/18/20 Sample Coordinator Goal (LTG) Patient to demonstrate ROM WNL , and 5/5 strength left ankle for improved functional mobility LTG Duration 10/05/20 Two Impairment swelling left ankle Sample Coordinator Goal (LTG) Minimize swelling left ankle to no greater than 0.5 cm difference between left and right LTG Duration 10/05/20 One Impairment pain left ankle interrupting sleep and causing antalgic gait Short Term Goal (STG) Patient to report 50% reduction in pain STG Duration 08/18/20 Sample Coordinator Goal (LTG) Patient will report decrease in pain to allow her to resume normal sleep and ambulate usual distances without an assistive device. LTG Duration 10/05/20 Assessment Summary Assessment Patient demonstrating improvement in awareness of alignment of LE's. Unable to tolerate recumbant ex bike at home, uncertain why as tolerates well in PT. Mod cues for correct use of treadmill, upright posture. Physical Therapy Plan Frequency and Duration Frequency of Treatment 2x/Week Duration of Treatment 8 Plan of Care Start Date 07/07/20 Plan of Care End Date 10/05/20 Therapeutic Interventions Therapeutic Interventions Gait Training,Home Exercise Program,Joint Mobilizations, Manual Therapy,Patient/ Caregiver Education,Self-Care/ Home Management,Soft Tissue Mobilization,Taping, Therapeutic Activities, Therapeutic Exercises Modalities Cold Pack/Ice Massage,Electric Stimulation,Hot Packs, Ultrasound Other Therapeutic Interventions edema management Next Visit Focus/Plan Next Note Type Treatment Note Next Visit Plan Patient to have take picture of her on recumbant ex bike at home to problem solve use without pain if possible. Continue closed chain ex as tolerated. Emphasis on gait next session.
--- NOTE | 2020-08-27 10:50 | PT.OTN ---
Current Diagnoses Pain in left ankle and joints of left foot (08/27/20) Weakness (08/27/20) Edema, unspecified (08/27/20) Physical Therapy Treatment Note PT-OP-A Visit Information Start: 07/03/20 17:36 Freq: Status: Active Protocol: Document 08/27/20 09:57 SAK (Rec: 08/27/20 10:20 SAK [id number]) Out-Patient Physical Therapy Visit Information Visit Information Visit Type Treatment Note Visit Start Time 09:45 Visit Stop Time 10:42 Total Visit Minutes 57 Visit Number 9 PT-OP-B Current Condition Start: 07/03/20 17:36 Freq: Status: Active Protocol: Document 07/07/20 09:47 SAK (Rec: 07/07/20 10:15 SAK [id number]) Current Condition History of Current Condition Onset Date 1 year Current Complaints left ankle pain and swelling History of Current Condition gradual onset left ankle pain. No known injury. Staff Research Associate recommended ice and heat, minimal effect. Wears Vionic shoes, reports less pain with the good arch. States walking very limited at this time due to the pain and that she knows she limps. Has not used cane or tried compression stockings Prior Treatments and Tests x-ray negative Treatment Goals Patient/Caregiver Goals minimize pain, be able to walk without pain Prior Functional Status Baseline Function- ADL's Independent Baseline Function- Mobility Independent Baseline Function- Gait no limp Current Functional Impairments (Reported) Functional Limitations- ADL's painful in standing Functional Limitations- Mobility/Gait limited to household and short distance community. Unable to go for long walks as previously due the pain PT-OP-C Subjective Start: 07/03/20 17:36 Freq: Status: Active Protocol: Document 08/27/20 09:57 SAK (Rec: 08/27/20 10:20 SAK [id number]) OP-PT Subjective Patient Comments Patient Comments Rode her exercise bike at home for 30 min and reports no pain. Hasn't tried going for a walk yet but is going to [employer] today, is wearing her tennis shoes and orthotics. Pain decreased since last PT session. PT-OP-F Manual Assessment Start: 07/03/20 17:36 Freq: Status: Active Protocol: Document 07/07/20 13:23 SAK (Rec: 07/07/20 13:49 SAK [id number]) Manual Assessments Joint Mobility Assessment Joint Mobility Assessment decreased subtalar mobility all motions PT-OP-G Mobility & Gait Start: 07/03/20 17:36 Freq: Status: Active Protocol: Document 07/07/20 13:23 [facility] (Rec: 07/07/20 13:49 [facility] [id number]) OP Gait Assessment Gait Gait Assistance Required: Independent Assistive Devices Assistive Device None Gait Deviations General Gait Pattern Antalgic Factors Limiting Gait Function Factors Limiting Gait Function Decreased Strength,Pain Comments Gait Comments swelling Stair Climbing Evaluation Technique/Endurance Stair Climbing Technique Step to Step PT-OP-H Neuro Start: 07/03/20 17:36 Freq: Status: Active Protocol: Document 07/07/20 13:23 [facility] (Rec: 07/07/20 13:49 [facility] [id number]) Sensation Evaluation Gross Sensation Gross Sensation WNL PT-OP-J Posture/Palpation/Skin Start: 07/03/20 17:36 Freq: Status: Active Protocol: Document 07/07/20 13:23 [facility] (Rec: 07/07/20 13:49 [facility] [id number]) Posture Evaluation Position Standing Knee Posture (L) Genu Recurvatum Ankle/Foot Posture (L) Pronated,(L) Forefoot Eversion Foot Arch (L) Low Arch Comments Posture Comments no space between left great toe and 2nd toe at rest Palpation Assessment Location left ankle Palpation Location medial Palpation Findings Edema,Tenderness Palpation Details mild increase in warmth, no redness Skin Assessment Edema Assessment Left Ankle Edema Type Non-Pitting Edema Degree 2+ Edema Appearance Puffy Subjective Edema Description Pain Circumference Measurement 2 Location left malleolar Measurement (Centimeters) 27.8 1 Location right malleolar Measurement (Centimeters) 26.5 PT-OP-K Range of Motion Start: 07/03/20 17:36 Freq: Status: Active Protocol: Document 07/07/20 13:23 [facility] (Rec: 07/07/20 13:49 [facility] [id number]) Ankle and Foot Goniometric Range of Motion Ankle and Foot Left Active Dorsiflexion with Knee Flexed 4 Plantarflexion 40 Inversion 24 Eversion 32 Right Active Dorsiflexion with Knee Flexed 8 Plantarflexion 55 Inversion 35 Eversion 37 Ankle and Foot ROM Limitations ROM Limitations Soft Tissue Tightness,Pain, Swelling PT-OP-M Strength Start: 07/03/20 17:36 Freq: Status: Active Protocol: Document 07/07/20 13:23 [facility] (Rec: 07/07/20 13:49 [facility] [id number]) Knee Strength Knee Manual Muscle Testing mildred Flexion (S2) 4 Good Extension (L3) 4+ Good+ Ankle/Foot Strength Ankle and Foot Manual Muscle Testing Left Dorsiflexion (L4) 4 Good Plantarflexion (S1) 4 Good Inversion 4 Good Eversion (S1) 4- Good- Right Dorsiflexion (L4) 4+ Good+ Plantarflexion (S1) 5 Normal Inversion 5 Normal Eversion (S1) 5 Normal PT-OP-Q Treatments Start: 07/03/20 17:36 Freq: Status: Active Protocol: Document 08/27/20 09:57 [facility] (Rec: 08/27/20 10:20 [facility] [id number]) Cardio Equipment Recumbent Elliptical (Biodex) Duration (Minutes) 10 Resistance 2 Seat Position 8 Gym Equipment Shuttle Recovery heel raises Details emphasis on neutral LE alignment Resistance 37 Reps/Time 10x2 Unilateral Heel Raises Details emphasis on neutral LE alignment Resistance 50 Reps/Time 10x2 Bilateral Squats Details emphasis on neutral LE alignment Resistance 62 Reps/Time 10x2 Shuttle Balance chains red Details fwd/bck and side to side bal and wt shift Therapeutic Exercises Standing Exercises HC stretch Equipment Used DANIELA Reps/Minutes 2x30 Comments neutral and with IR Manual Therapy Treatment Soft Tissue Mobilization 1 Body Location left gastroc, plantar fascia Intensity/Depth Moderate Body Position Hooklying PT-OP-R Modalities Start: 07/03/20 17:36 Freq: Status: Active Protocol: Document 08/27/20 09:57 [facility] (Rec: 08/27/20 10:20 [facility] [id number]) Hot Pack/Cold Pack Treatment Cold Pack Location left ankle Patient Position Hooklying Treatment Duration (minutes) 10 Patient Tolerance Good Comments Cryocuff Ultrasound Therapy Treatment Left Ankle Treatment Duration (minutes) 8 Patient Position Hooklying Coupling Medium Ultrasound Gel Frequency Setting (mHz) 3 Mode Setting Continuous Duty Cycle 100% Intensity Setting (w/cm2) 1.0 PT-OP-T Assessment and Plan Start: 07/03/20 17:36 Freq: Status: Active Protocol: Document 08/27/20 09:57 [facility] (Rec: 08/27/20 10:20 SAK [id number]) Physical Therapy Assessment Goals Four Impairment lower extremity functional scale 54%, Foot and ankle ability measure 43% Jail Goal (LTG) Improve scores on LEFS and FAAM to at least 75% as evidence of patient's improved function LTG Duration 10/05/20 Three Impairment decreased ROM and strength left ankle Short Term Goal (STG) Patient to be instructed in HEP for purposes of ROM and strengthening left ankle STG Duration 08/18/20 Jail Goal (LTG) Patient to demonstrate ROM WNL , and 5/5 strength left ankle for improved functional mobility LTG Duration 10/05/20 Two Impairment swelling left ankle Rehab Physician Goal (LTG) Minimize swelling left ankle to no greater than 0.5 cm difference between left and right LTG Duration 10/05/20 One Impairment pain left ankle interrupting sleep and causing antalgic gait Short Term Goal (STG) Patient to report 50% reduction in pain STG Duration 08/18/20 Rehab Physician Goal (LTG) Patient will report decrease in pain to allow her to resume normal sleep and ambulate usual distances without an assistive device. LTG Duration 10/05/20 Progress Towards Goals Progress Towards Goals Progressing Toward Goals Assessment Summary Assessment Decreased pain today, now able to ride her exercise bike at home without pain. Gait quality improving. Physical Therapy Plan Frequency and Duration Frequency of Treatment 2x/Week Duration of Treatment 8 Plan of Care Start Date 07/07/20 Plan of Care End Date 10/05/20 Therapeutic Interventions Therapeutic Interventions Gait Training,Home Exercise Program,Joint Mobilizations, Manual Therapy,Patient/ Caregiver Education,Self-Care/ Home Management,Soft Tissue Mobilization,Taping, Therapeutic Activities, Therapeutic Exercises Modalities Cold Pack/Ice Massage,Electric Stimulation,Hot Packs, Ultrasound Other Therapeutic Interventions edema management Next Visit Focus/Plan Next Note Type Treatment Note Next Visit Plan Trial sport cord with emphasis on LE alignment and correct muscle activation sequences.
--- NOTE | 2020-10-16 17:03 | PT.OTRE ---
Current Diagnoses Pain in left ankle and joints of left foot (10/15/20) Weakness (10/15/20) Edema, unspecified (10/15/20) Past Medical History (Last Reviewed 06/26/20 @ 14:42 by Jessica Delgadillo MD) History of diverticulitis Hypertension Hypothyroid Ocular migraine Surgical History (Last Reviewed 06/26/20 @ 14:42 by Jessica Delgadillo MD) H/O bilateral oophorectomy History of arthroscopy of right knee History of cholecystectomy History of colon resection History of hysterectomy History of incisional hernia repair Hx of total knee arthroplasty Visit Care Team Role Provider Type Keyanna Gamino MD Attending Provider Physician Primary Care Provider Referring Provider Specialty: [facility] Address: [address] [place] [address] [place], [facility] Email: [email or web address] Physical Therapy Re-Evaluation PT-OP-A Visit Information Start: 07/03/20 17:36 Freq: Status: Active Protocol: Document 10/15/20 10:42 SAK (Rec: 10/15/20 11:17 SAK [id number]) Out-Patient Physical Therapy Visit Information Visit Information Visit Type Treatment Note Visit Start Time 09:45 Visit Stop Time 10:42 Total Visit Minutes 57 Visit Number 10 PT-OP-B Current Condition Start: 07/03/20 17:36 Freq: Status: Active Protocol: Document 07/07/20 09:47 SAK (Rec: 07/07/20 10:15 SAK [id number]) Current Condition History of Current Condition Onset Date 1 year Current Complaints left ankle pain and swelling History of Current Condition gradual onset left ankle pain. No known injury. Candy Waffle Assembler recommended ice and heat, minimal effect. Wears Vionic shoes, reports less pain with the good arch. States walking very limited at this time due to the pain and that she knows she limps. Has not used cane or tried compression stockings Prior Treatments and Tests x-ray negative Treatment Goals Patient/Caregiver Goals minimize pain, be able to walk without pain Prior Functional Status Baseline Function- ADL's Independent Baseline Function- Mobility Independent Baseline Function- Gait no limp Current Functional Impairments (Reported) Functional Limitations- ADL's painful in standing Functional Limitations- Mobility/Gait limited to household and short distance community. Unable to go for long walks as previously due the pain PT-OP-C Subjective Start: 07/03/20 17:36 Freq: Status: Active Protocol: Document 10/15/20 10:42 SAK (Rec: 10/16/20 17:02 [facility] [id number]) OP-PT Subjective Patient Comments Patient Comments Patient reports she was able to go for short walk without using a device this week with mild increase in pain, some days better than others but overall improved. Patient Questionnaires Foot & Ankle Ability Measure- ADL and Sports FAAM-ADL Score 62 Lower Extremity Functional Scale LEFS Score 64 OP-PT Pain Assessment Location left ankle Pain Location Details 0-6 Intensity 6 Scale Used Numeric (0 - 10) Description Aching,Pressure,With Movement Frequency Frequent Pain Aggravating Factors Changing Position,Activity, Standing,Walking Pain Alleviating Factors Inactivity PT-OP-F Manual Assessment Start: 07/03/20 17:36 Freq: Status: Active Protocol: Document 07/07/20 13:23 [facility] (Rec: 07/07/20 13:49 [facility] [id number]) Manual Assessments Joint Mobility Assessment Joint Mobility Assessment decreased subtalar mobility all motions PT-OP-G Mobility & Gait Start: 07/03/20 17:36 Freq: Status: Active Protocol: Document 07/07/20 13:23 [facility] (Rec: 07/07/20 13:49 [facility] [id number]) OP Gait Assessment Gait Gait Assistance Required: Independent Assistive Devices Assistive Device None Gait Deviations General Gait Pattern Antalgic Factors Limiting Gait Function Factors Limiting Gait Function Decreased Strength,Pain Comments Gait Comments swelling Stair Climbing Evaluation Technique/Endurance Stair Climbing Technique Step to Step PT-OP-H Neuro Start: 07/03/20 17:36 Freq: Status: Active Protocol: Document 07/07/20 13:23 SAK (Rec: 07/07/20 13:49 [facility] [id number]) Sensation Evaluation Gross Sensation Gross Sensation WNL PT-OP-J Posture/Palpation/Skin Start: 07/03/20 17:36 Freq: Status: Active Protocol: Document 07/07/20 13:23 SAK (Rec: 07/07/20 13:49 [facility] [id number]) Posture Evaluation Position Standing Knee Posture (L) Genu Recurvatum Ankle/Foot Posture (L) Pronated,(L) Forefoot Eversion Foot Arch (L) Low Arch Comments Posture Comments no space between left great toe and 2nd toe at rest Palpation Assessment Location left ankle Palpation Location medial Palpation Findings Edema,Tenderness Palpation Details mild increase in warmth, no redness Skin Assessment Edema Assessment Left Ankle Edema Type Non-Pitting Edema Degree 2+ Edema Appearance Puffy Subjective Edema Description Pain Circumference Measurement 2 Location left malleolar Measurement (Centimeters) 27.8 1 Location right malleolar Measurement (Centimeters) 26.5 PT-OP-K Range of Motion Start: 07/03/20 17:36 Freq: Status: Active Protocol: Document 07/07/20 13:23 [facility] (Rec: 07/07/20 13:49 [facility] [id number]) Ankle and Foot Goniometric Range of Motion Ankle and Foot Measured in Degrees Left Active Dorsiflexion with Knee Flexed 4 Plantarflexion 40 Inversion 24 Eversion 32 Right Active Dorsiflexion with Knee Flexed 8 Plantarflexion 55 Inversion 35 Eversion 37 Ankle and Foot ROM Limitations ROM Limitations Soft Tissue Tightness,Pain, Swelling PT-OP-M Strength Start: 07/03/20 17:36 Freq: Status: Active Protocol: Document 07/07/20 13:23 [facility] (Rec: 07/07/20 13:49 [facility] [id number]) Knee Strength Knee Manual Muscle Testing mildred Flexion (S2) 4 Good Extension (L3) 4+ Good+ Ankle/Foot Strength Ankle and Foot Manual Muscle Testing Left Dorsiflexion (L4) 4 Good Plantarflexion (S1) 4 Good Inversion 4 Good Eversion (S1) 4- Good- Right Dorsiflexion (L4) 4+ Good+ Plantarflexion (S1) 5 Normal Inversion 5 Normal Eversion (S1) 5 Normal PT-OP-Q Treatments Start: 07/03/20 17:36 Freq: Status: Active Protocol: Document 10/15/20 10:42 [facility] (Rec: 10/16/20 17:02 [facility] [id number]) Cardio Equipment Treadmill Duration (Minutes) 8 Speed 2.5 Incline 0-2 Therapeutic Exercises Sitting Exercises short foot Reps/Minutes 10x Standing Exercises short foot Reps/Minutes 10x Comments mirror for visual feedback tandem stand Reps/Minutes 2x30 each side Comments UE support, cues for alignment HC stretch Equipment Used DANIELA Reps/Minutes 2x30 Comments neutral and with IR Manual Therapy Treatment Soft Tissue Mobilization 1 Body Location left gastroc, plantar fascia Intensity/Depth Moderate Body Position Hooklying Self-Care/Home Management Treatment Education Patient Education Body Mechanics,Home Exercise Program,Pain Management Other Education use of video of patient walking taken with her phone regarding alignment, muscle activation sequencing PT-OP-R Modalities Start: 07/03/20 17:36 Freq: Status: Active Protocol: Document 10/15/20 10:42 [facility] (Rec: 10/16/20 17:02 [facility] [id number]) Hot Pack/Cold Pack Treatment Cold Pack Location left ankle Patient Position Hooklying Treatment Duration (minutes) 10 Patient Tolerance Good Comments Cryocuff PT-OP-T Assessment and Plan Start: 07/03/20 17:36 Freq: Status: Active Protocol: Document 10/15/20 10:42 [facility] (Rec: 10/15/20 11:17 [facility] [id number]) Physical Therapy Assessment Goals Four Impairment lower extremity functional scale 54%, Foot and ankle ability measure 43% Spinning Machine Operator Goal (LTG) Improve scores on LEFS and FAAM to at least 75% as evidence of patient's improved function 10/15/20: LEFS improved to 64%, FAAM to 63% LTG Duration 10/05/20 Three Impairment decreased ROM and strength left ankle Short Term Goal (STG) Patient to be instructed in HEP for purposes of ROM and strengthening left ankle STG Duration goal met Spinning Machine Operator Goal (LTG) Patient to demonstrate ROM WNL , and 5/5 strength left ankle for improved functional mobility 10/15/20: good goal progress, ROM WFL, strength 4+/5 left ankle LTG Duration 10/05/20 Two Impairment swelling left ankle Chcf Goal (LTG) Minimize swelling left ankle to no greater than 0.5 cm difference between left and right LTG Duration goal met. One Impairment pain left ankle interrupting sleep and causing antalgic gait Short Term Goal (STG) Patient to report 50% reduction in pain STG Duration goal met Spinning Machine Operator Goal (LTG) Patient will report decrease in pain to allow her to resume normal sleep and ambulate usual distances without an assistive device. 10/15/20: patient able to take short walk without device this week, not usual distance, but improving. LTG Duration 10/05/20 Progress Towards Goals Progress Towards Goals Progressing Toward Goals Assessment Summary Assessment Patient making good progress toward goals, compliant with HEP. Videotape of walking on treadmill used today for further education regarding alignment and muscle activation. Would benefit from further PT to help her further decrease her pain, improve her strength, flexibility, and function and return to her prioir level of function. Physical Therapy Plan Frequency and Duration Frequency of Treatment 10 visits Duration of Treatment 8 weeks Plan of Care Start Date 10/15/20 Plan of Care End Date 12/15/20 Therapeutic Interventions Therapeutic Interventions Gait Training,Home Exercise Program,Joint Mobilizations, Manual Therapy,Patient/ Caregiver Education,Self-Care/ Home Management,Soft Tissue Mobilization,Taping, Therapeutic Activities, Therapeutic Exercises Modalities Cold Pack/Ice Massage,Electric Stimulation,Hot Packs, Ultrasound Other Therapeutic Interventions edema management Next Visit Focus/Plan Next Note Type Treatment Note Next Visit Plan Continue to progress with pain management, strengthening, flexibility, neuro re- education. Trial sport cord with emphasis on LE alignment and correct muscle activation sequences.
--- NOTE | 2020-10-16 17:03 | PT.OPPOC ---
Physical, Occupational & Speech Therapy At [facility] Current Diagnoses Pain in left ankle and joints of left foot (10/15/20) Weakness (10/15/20) Edema, unspecified (10/15/20) Visit Care Team Role Provider Type Keyanna Gamino MD Attending Provider Physician Primary Care Provider Referring Provider Specialty: [facility] Address: [address] [place] [address], [facility] [place], [facility] Email: [email or web address] Plan Of Care PT-OP-T Assessment and Plan Start: 07/03/20 17:36 Freq: Status: Active Protocol: Document 10/15/20 10:42 SAK (Rec: 10/15/20 11:17 SAK [id number]) Physical Therapy Assessment Goals Four Impairment lower extremity functional scale 54%, Foot and ankle ability measure 43% Fdc Goal (LTG) Improve scores on LEFS and FAAM to at least 75% as evidence of patient's improved function 10/15/20: LEFS improved to 64%, FAAM to 63% LTG Duration 10/05/20 Three Impairment decreased ROM and strength left ankle Short Term Goal (STG) Patient to be instructed in HEP for purposes of ROM and strengthening left ankle STG Duration goal met Manufacturing Development Engineer Goal (LTG) Patient to demonstrate ROM WNL , and 5/5 strength left ankle for improved functional mobility 10/15/20: good goal progress, ROM WFL, strength 4+/5 left ankle LTG Duration 10/05/20 Two Impairment swelling left ankle Manufacturing Development Engineer Goal (LTG) Minimize swelling left ankle to no greater than 0.5 cm difference between left and right LTG Duration goal met. One Impairment pain left ankle interrupting sleep and causing antalgic gait Short Term Goal (STG) Patient to report 50% reduction in pain STG Duration goal met Manufacturing Development Engineer Goal (LTG) Patient will report decrease in pain to allow her to resume normal sleep and ambulate usual distances without an assistive device. 10/15/20: patient able to take short walk without device this week, not usual distance, but improving. LTG Duration 10/05/20 Progress Towards Goals Progress Towards Goals Progressing Toward Goals Assessment Summary Assessment Patient making good progress toward goals, compliant with HEP. Videotape of walking on treadmill used today for further education regarding alignment and muscle activation. Would benefit from further PT to help her further decrease her pain, improve her strength, flexibility, and function and return to her prioir level of function. Physical Therapy Plan Frequency and Duration Frequency of Treatment 10 visits Duration of Treatment 8 weeks Plan of Care Start Date 10/15/20 Plan of Care End Date 12/15/20 Therapeutic Interventions Therapeutic Interventions Gait Training,Home Exercise Program,Joint Mobilizations, Manual Therapy,Patient/ Caregiver Education,Self-Care/ Home Management,Soft Tissue Mobilization,Taping, Therapeutic Activities, Therapeutic Exercises Modalities Cold Pack/Ice Massage,Electric Stimulation,Hot Packs, Ultrasound Other Therapeutic Interventions edema management Next Visit Focus/Plan Next Note Type Treatment Note Next Visit Plan Continue to progress with pain management, strengthening, flexibility, neuro re- education. Trial sport cord with emphasis on LE alignment and correct muscle activation sequences. Plan of Care Dates Plan of Care Start Date 10/15/20 Plan of Care End Date 12/15/20 Electronically Signed by: Lainey Samuels, PT 10/16/20 [id number] Please Sign and Return: I have reviewed this Plan of Care and certify that the skilled therapy services above are required to meet the patient?s needs. Physician Signature Date Printed Name and Credentials Clinical Instructor Signature Printed Name and Credentials
--- NOTE | 2021-01-19 10:52 | PT.OPDS ---
Current Diagnoses Pain in left ankle and joints of left foot (10/15/20) Weakness (10/15/20) Edema, unspecified (10/15/20) Visit Care Team Role Provider Type Keyanna Gamino MD Attending Provider Physician Primary Care Provider Referring Provider Specialty: Family Practice Address: [address] [place] [address], [facility] [place], [address] Email: [email or web address] Visit Number Visit Number 10 Discharge Summary PT-OP-B Current Condition Start: 07/03/20 17:36 Freq: Status: Active Protocol: Document 07/07/20 09:47 SAK (Rec: 07/07/20 10:15 SAK [id number]) Current Condition History of Current Condition Onset Date 1 year Current Complaints left ankle pain and swelling History of Current Condition gradual onset left ankle pain. No known injury. Field Advisor recommended ice and heat, minimal effect. Wears Vionic shoes, reports less pain with the good arch. States walking very limited at this time due to the pain and that she knows she limps. Has not used cane or tried compression stockings Prior Treatments and Tests x-ray negative Treatment Goals Patient/Caregiver Goals minimize pain, be able to walk without pain Prior Functional Status Baseline Function- ADL's Independent Baseline Function- Mobility Independent Baseline Function- Gait no limp Current Functional Impairments (Reported) Functional Limitations- ADL's painful in standing Functional Limitations- Mobility/Gait limited to household and short distance community. Unable to go for long walks as previously due the pain PT-OP-C Subjective Start: 07/03/20 17:36 Freq: Status: Active Protocol: Document 10/15/20 10:42 SAK (Rec: 10/16/20 17:02 SAK [id number]) OP-PT Subjective Patient Comments Patient Comments Patient reports she was able to go for short walk without using a device this week with mild increase in pain, some days better than others but overall improved. Patient Questionnaires Foot & Ankle Ability Measure- ADL and Sports FAAM-ADL Score 62 Lower Extremity Functional Scale LEFS Score 64 OP-PT Pain Assessment Location left ankle Pain Location Details 0-6 Intensity 6 Scale Used Numeric (0 - 10) Description Aching,Pressure,With Movement Frequency Frequent Pain Aggravating Factors Changing Position,Activity, Standing,Walking Pain Alleviating Factors Inactivity PT-OP-F Manual Assessment Start: 07/03/20 17:36 Freq: Status: Active Protocol: Document 07/07/20 13:23 SAK (Rec: 07/07/20 13:49 SAK [id number]) Manual Assessments Joint Mobility Assessment Joint Mobility Assessment decreased subtalar mobility all motions PT-OP-G Mobility & Gait Start: 07/03/20 17:36 Freq: Status: Active Protocol: Document 07/07/20 13:23 SAK (Rec: 07/07/20 13:49 [facility] [id number]) OP Gait Assessment Gait Gait Assistance Required: Independent Assistive Devices Assistive Device None Gait Deviations General Gait Pattern Antalgic Factors Limiting Gait Function Factors Limiting Gait Function Decreased Strength,Pain Comments Gait Comments swelling Stair Climbing Evaluation Technique/Endurance Stair Climbing Technique Step to Step PT-OP-H Neuro Start: 07/03/20 17:36 Freq: Status: Active Protocol: Document 07/07/20 13:23 SAK (Rec: 07/07/20 13:49 [facility] [id number]) Sensation Evaluation Gross Sensation Gross Sensation WNL PT-OP-J Posture/Palpation/Skin Start: 07/03/20 17:36 Freq: Status: Active Protocol: Document 07/07/20 13:23 SAK (Rec: 07/07/20 13:49 [facility] [id number]) Posture Evaluation Position Standing Knee Posture (L) Genu Recurvatum Ankle/Foot Posture (L) Pronated,(L) Forefoot Eversion Foot Arch (L) Low Arch Comments Posture Comments no space between left great toe and 2nd toe at rest Palpation Assessment Location left ankle Palpation Location medial Palpation Findings Edema,Tenderness Palpation Details mild increase in warmth, no redness Skin Assessment Edema Assessment Left Ankle Edema Type Non-Pitting Edema Degree 2+ Edema Appearance Puffy Subjective Edema Description Pain Circumference Measurement 2 Location left malleolar Measurement (Centimeters) 27.8 1 Location right malleolar Measurement (Centimeters) 26.5 PT-OP-K Range of Motion Start: 07/03/20 17:36 Freq: Status: Active Protocol: Document 07/07/20 13:23 SAK (Rec: 07/07/20 13:49 [facility] [id number]) Ankle and Foot Goniometric Range of Motion Ankle and Foot Left Active Dorsiflexion with Knee Flexed 4 Plantarflexion 40 Inversion 24 Eversion 32 Right Active Dorsiflexion with Knee Flexed 8 Plantarflexion 55 Inversion 35 Eversion 37 Ankle and Foot ROM Limitations ROM Limitations Soft Tissue Tightness,Pain, Swelling PT-OP-M Strength Start: 07/03/20 17:36 Freq: Status: Active Protocol: Document 07/07/20 13:23 [facility] (Rec: 07/07/20 13:49 [facility] [id number]) Knee Strength Knee Manual Muscle Testing mildred Flexion (S2) 4 Good Extension (L3) 4+ Good+ Ankle/Foot Strength Ankle and Foot Manual Muscle Testing Left Dorsiflexion (L4) 4 Good Plantarflexion (S1) 4 Good Inversion 4 Good Eversion (S1) 4- Good- Right Dorsiflexion (L4) 4+ Good+ Plantarflexion (S1) 5 Normal Inversion 5 Normal Eversion (S1) 5 Normal PT-OP-T Assessment and Plan Start: 07/03/20 17:36 Freq: Status: Active Protocol: Document 01/19/21 10:52 [facility] (Rec: 01/19/21 10:52 [facility] [id number]) Physical Therapy Plan Discharge Physical Therapy Discharge Reasons No Longer Attending PT
== END 2021-01-21 14:30 | disposition home or self-care (01) ==
LOC: PHYS 10:30
PROVIDERS: PCP Family Medicine; Referring Provider Family Medicine; Visit Provider Family Medicine
DX: M25.572 Pain in left ankle and joints of left foot (principal); R53.1 Weakness; R60.9 Edema, unspecified
CPT/HCPCS: 97010; 97035; 97110; 97112; 97140; 97162; 97535

== ENCOUNTER → 2021-07-04 08:18 | Outpatient (CLI) | payer MEDICARE, OTHER, SELFPAY ==
--- NOTE | 2021-07-04 08:20 | DI.MG.S_ITS ---
BILATERAL DIGITAL SCREENING MAMMOGRAM 3D/2D WITH CAD: 07/04/2021 CLINICAL: Routine screening. Family history of breast cancer. Comparison is made to exams dated: 06/23/2020 mammogram, 03/19/2019 mammogram, 03/01/2018 mammogram, 02/23/2017 mammogram, and 02/10/2016 mammogram - [facility]. There are scattered fibroglandular elements in both breasts. Current study was also evaluated with a Computer Aided Detection (CAD) system. No significant masses, calcifications, or other findings are seen in either breast. There has been no significant interval change. IMPRESSION: NEGATIVE There is no mammographic evidence of malignancy. A 1 year screening mammogram is recommended. This exam was interpreted at Station ID: [id number]. NOTE: For mammograms, a report in lay terms will be sent to the patient. Approximately 15% of breast malignancies will not be visualized mammographically. In the management of a palpable breast mass, a negative mammogram must not discourage biopsy of a clinically suspicious lesion. Electronically Signed By: Gomez reese/bria:07/06/2021 08:01:41 copy to: Keyanna Gamino letter sent: Normal Exam ACR BI-RADS Category 1: Negative [id number]
== END ==
PROVIDERS: PCP Family Medicine; Referring Provider Family Medicine; Visit Provider Family Medicine
DX: Z12.31 Encounter for screening mammogram for malignant neoplasm of breast (principal); Z80.3 Family history of malignant neoplasm of breast
CPT/HCPCS: 77063; 77067

== ENCOUNTER → 2022-01-14 09:55 | Outpatient (CLI) | payer MEDICARE, OTHER, SELFPAY ==
--- NOTE | 2022-01-14 | DI.RAD.S_ITS ---
PROCEDURE: XR CERVICAL SPINE 2V OR 3V INDICATIONS: Cervicalgia TECHNIQUE: 3 view(s) of the cervical spine were acquired. COMPARISON: None. FINDINGS: Bones: No fractures or dislocations to the T1 level. The lateral masses of C1 appear intact on the odontoid view. No suspicious bony lesions. Severe C3-C4, C4-C5, C5-C6, C6-C7 and C7-T1 degenerative disc disease. Moderate bilateral C3-C4, C4-C5, C5-C6, C6-C7 and C7-T1 facet hypertrophy. Moderate bilateral C3-C4, C4-C5, C5-C6 and C6-C7 uncovertebral hypertrophy. Soft tissues: No prevertebral soft tissue swelling. IMPRESSION: 1. Multilevel degenerative disc disease. 2. Multilevel facet and uncovertebral arthropathy. 3. No fracture. No acute osseous lesion. If symptoms and/or clinical suspicion for pathology persists, evaluation with MRI should be considered for further assessment. Dictated by: Mireille Kimble MD, PhD on 01/14/2022 at 11:46 Approved by: Mireille Kimble MD, PhD on 01/14/2022 at 11:48
== END ==
PROVIDERS: PCP Family Medicine; Referring Provider Family Medicine; Visit Provider Family Medicine
DX: M50.31 Other cervical disc degeneration, high cervical region (principal); M47.812 Spondylosis without myelopathy or radiculopathy, cervical region
CPT/HCPCS: 72040

== ENCOUNTER → 2022-07-27 14:14 | Outpatient (CLI) | payer MEDICARE, OTHER, SELFPAY | PROVIDERS: Family Provider Family Medicine; PCP Family Medicine; Referring Provider Family Medicine; Visit Provider Family Medicine | DX: Z13.820 Encounter for screening for osteoporosis; Z78.0 Asymptomatic menopausal state; M85.852 Other specified disorders of bone density and structure, left thigh; Z90.710 Acquired absence of both cervix and uterus | CPT/HCPCS: 77080 ==

== ENCOUNTER → 2022-07-28 11:22 | Outpatient (CLI) | payer MEDICARE, OTHER, SELFPAY ==
--- NOTE | 2022-07-28 | DI.MG.S_ITS ---
BILATERAL DIGITAL SCREENING MAMMOGRAM 3D/2D WITH CAD: 07/28/2022 CLINICAL: Routine screening. Family history of breast cancer. Comparison is made to exams dated: 07/04/2021 mammogram, 06/23/2020 mammogram, and 03/19/2019 mammogram - [facility]. There are scattered areas of fibroglandular density in both breasts (category b / 25%-50% glandular tissue). Current study was also evaluated with a Computer Aided Detection (CAD) system. No significant masses, calcifications, or other findings are seen in either breast. There has been no significant interval change. IMPRESSION: NEGATIVE There is no mammographic evidence of malignancy. A 1 year screening mammogram is recommended. Based on the Tyrer Cuzick model (a risk assessment model) the patient's lifetime risk is 4.4% and her 10 year risk is 4.4%. According to the ACR, ACS, and NCCN guidelines, an annual breast MRI exam along with mammogram is recommended if the patient's lifetime risk is 20% or greater. This exam was interpreted at Station ID: [id number]. NOTE: For mammograms, a report in lay terms will be sent to the patient. Approximately 15% of breast malignancies will not be visualized mammographically. In the management of a palpable breast mass, a negative mammogram must not discourage biopsy of a clinically suspicious lesion. Electronically Signed By: Russ stack/bria:07/28/2022 12:03:03 copy to: Keyanna Gamino letter sent: Normal Exam ACR BI-RADS Category 1: Negative [id number]
== END ==
PROVIDERS: Family Provider Family Medicine; PCP Family Medicine; Referring Provider Family Medicine; Visit Provider Family Medicine
DX: Z12.31 Encounter for screening mammogram for malignant neoplasm of breast (principal); Z80.3 Family history of malignant neoplasm of breast
CPT/HCPCS: 77063; 77067

== ENCOUNTER 2022-09-02 11:15 | Outpatient (RCR) | payer MEDICARE, OTHER, SELFPAY ==
--- NOTE | 2022-06-01 18:53 | PT.OIE ---
Current Diagnoses Cervicalgia (06/01/22) Abnormal posture (06/01/22) Past Medical History (Last Reviewed 06/26/20 @ 14:42 by Jessica Delgadillo MD) History of diverticulitis Hypertension Hypothyroid Ocular migraine Past Surgical History (Last Reviewed 06/26/20 @ 14:42 by Jessica Delgadillo MD) H/O bilateral oophorectomy History of arthroscopy of right knee History of cholecystectomy History of colon resection History of hysterectomy History of incisional hernia repair Hx of total knee arthroplasty Visit Care Team Role Provider Type Keyanna Gamino MD Attending Provider Physician Family Provider Primary Care Provider Referring Provider Specialty: [facility] Address: [address] [place] [address], [facility] [place], [place], [facility] Email: [email or web address] Physical Therapy Initial Evaluation PT-OP-A Visit Information Start: 05/27/22 18:14 Freq: Status: Active Protocol: Document 06/01/22 07:30 [facility] (Rec: 06/01/22 08:26 [facility] [id number]) Out-Patient Physical Therapy Visit Information Visit Information Visit Type Initial Evaluation Visit Start Time 07:34 Visit Stop Time 08:16 Total Visit Minutes 42 Visit Number 1 Number of SENIOR ORACLE DATABASE ADMINISTRATOR Visits 0 PT-OP-B Current Condition Start: 05/27/22 18:14 Freq: Status: Active Protocol: Document 06/01/22 07:30 [facility] (Rec: 06/01/22 08:26 [facility] [id number]) Current Condition History of Current Condition Onset Date 1 year Current Complaints neck pain History of Current Condition Pt reports pain in neck has been going on for about a year but got worse in February and March this year. She saw MD who did Xray and noticed crunching w/movement and pt notes taht is painful. It is difficult for her to get to sleep at night. Most of the pain is on the left and stays on the left. No neck pain history prior to the last year . Pt had a fall in the winter where she caught her foot and went forward but that didn't inc pain. No history of shoulder issues. Pt reprots occular migraines that happen only a couple times a year. Does reprot a bella few years ago in her bedroom where she hit the edge of a chest with left ribcage and may have fractured ribs but MD chose not to do xray Prior Treatments and Tests no other treatment Xray: IMPRESSION: 1. Multilevel degenerative disc disease. 2. Multilevel facet and uncovertebral arthropathy. 3. No fracture. No acute osseous lesion. If symptoms and/or clinical suspicion for pathology persists, evaluation with MRI should be considered for further assessment. Treatment Goals Patient/Caregiver Goals Get rid of the neck pain, be able to sleep PT-OP-C Subjective Start: 05/27/22 18:14 Freq: Status: Active Protocol: Document 06/01/22 07:30 [facility] (Rec: 06/01/22 08:26 [facility] [id number]) Patient Questionnaires Neck Disability Index NDI Score 15/50 OP-PT Pain Assessment Location neck pain Pain Location Details L post neck Intensity 8 Scale Used Numeric (0 - 10) Description Aching Frequency Constant Pain Aggravating Factors Lifting Other Pain Aggravating Factors laying down trying to sleep, lift w/L side, look down, turn L Pain Alleviating Factors Medication Other Pain Alleviating Factors tylenol arthritis 2x/day PT-OP-F Manual Assessment Start: 05/27/22 18:14 Freq: Status: Active Protocol: Document 06/01/22 07:30 [facility] (Rec: 06/01/22 08:26 [facility] [id number]) Manual Assessments Soft Tissue Assessment Soft Tissue Mobility Assessment L side mm significantly tighter & tender Joint Mobility Assessment Joint Mobility Assessment 1st rib L elevated, fwd rounded shoulder L>R PT-OP-J Posture/Palpation/Skin Start: 05/27/22 18:14 Freq: Status: Active Protocol: Document 06/01/22 07:30 [facility] (Rec: 06/01/22 08:26 [facility] [id number]) Posture Evaluation Nagi Postural Classification System Elbow Flexion Test 0 Comments Posture Comments mild kyphosis , fwd head PT-OP-K Range of Motion Start: 05/27/22 18:14 Freq: Status: Active Protocol: Document 06/01/22 07:30 [facility] (Rec: 06/01/22 08:26 [facility] [id number]) Cervical Spine Range of Motion Cervical Spine Active Degrees Flexion 45 Extension 32 Rotation Left 28 Rotation Right 42 Lateral Flexion Left 12 Lateral Flexion Right 17 Comments pain L SB, B rot PT-OP-L Special Tests Start: 09/08/22 18:14 Freq: Status: Active Protocol: Document 06/01/22 07:30 [facility] (Rec: 06/01/22 08:26 [facility] [id number]) Special Tests Cervical Spine Special Tests Vertebral Artery Test Results neg Spurling's Test Test Results neg Alar Ligament Test Results neg PT-OP-M Strength Start: 05/27/22 18:14 Freq: Status: Active Protocol: Document 06/01/22 07:30 [facility] (Rec: 06/01/22 08:26 [facility] [id number]) Shoulder Strength Shoulder Manual Muscle Testing Right Flexion 5 Normal Extension 5 Normal Abduction (C5) 4+ Good+ External Rotation 4- Good- Internal Rotation 4- Good- Left Flexion 4+ Good+ Extension 4+ Good+ Abduction (C5) 4+ Good+ External Rotation 4- Good- Internal Rotation 4- Good- Comments pain PT-OP-Q Treatments Start: 05/27/22 18:14 Freq: Status: Active Protocol: Document 06/01/22 07:30 [facility] (Rec: 06/01/22 08:26 [facility] [id number]) Therapeutic Exercises Sidelying Exercises open book Side bilateral Reps/Minutes 8 Sitting Exercises stretch Sitting Exercise Name UT & LS Side bilateral Reps/Minutes 30 sec PT-OP-T Assessment and Plan Start: 05/27/22 18:14 Freq: Status: Active Protocol: Document 06/01/22 07:30 [facility] (Rec: 06/01/22 08:26 [facility] [id number]) Physical Therapy Assessment Rehab Potential Rehabilitation Potential Good Evaluation Complexity Number of Personal Factors/Comorbidities 3 or More Number of Body Systems Impaired 4 or More Clinical Presentation at Evaluation Evolving Impairments Impairments Activity Tolerance,Functional Activities,Functional Mobility ,Pain,Posture,ROM,Soft Tissue Mobility,Strength Goals stability Short Term Goal (STG) Pt will be indep w/HEP STG Duration 07/20 Usp Goal (LTG) Pt will show imrpoved strength by inc MMT of UE to at leat 4 +/5 B and at least 3/5 EFT to shwo improved scap stabiltiy w /o loading the neck. LTG Duration 08/31 sleep Short Term Goal (STG) Pt will be educated on self management for pain at night and sleep positions to help dec pain at night. STG Duration 07/20/22 Usp Goal (LTG) Pt will report no distruption of sleep at night d/t pain. LTG Duration 08/31 ROM Short Term Goal (STG) Pt will improve ROM inall planes by 10 deg. STG Duration 07/30 Telephone Assembler Goal (LTG) Pt will have rotation to at least 60 deg B w/o pain to allow improved ease with driving and flex to at least 50 deg to allow inc ease w/ reading. LTG Duration 08/31 NDI Impairment 15/50 Short Term Goal (STG) Pt will improve score to no greater than 9/50 to show improved functional ability STG Duration 07/20 Usp Goal (LTG) Pt will improve score to no greater than 3/50 to show improved functional ability LTG Duration 08/31 Assessment Summary Assessment Pt presents w/neck pain that has been ongoing for 1 year w/ recent worsening in the past couple of months. Pain is mostly L sided and does not limit her from doing things, but makes doing the activities painful. She has trouble sleeping and has difficulty with ability to turn sideways w/o pain. She has scap winging on L side that is greater than R and has dec overall stability of scap along w/some mid to upper thoracic rounding w/fwd head which likely contributes to pain and dec ROM. She would benefit from skilled PT to work on these deficits. Physical Therapy Plan Frequency and Duration Frequency of Treatment 2x/Week Duration of Treatment 3 months Plan of Care Start Date 06/01/22 Plan of Care End Date 08/31/22 Therapeutic Interventions Therapeutic Interventions Home Exercise Program,Joint Mobilizations,Manual Therapy, Neuromuscular Re-education, Patient/Caregiver Education, Self-Care/Home Management,Soft Tissue Mobilization,Taping, Therapeutic Activities, Therapeutic Exercises Modalities Cold Pack/Ice Massage,Electric Stimulation,Hot Packs, Ultrasound Next Visit Focus/Plan Next Note Type Treatment Note Next Visit Plan review exercises, manual to upper tspine, manual to cervical mm, self release techniques, start scap stability exercises
--- NOTE | 2022-06-01 18:53 | PT.OPPOC ---
Physical, Occupational & Speech Therapy At [facility] Current Diagnoses Cervicalgia (06/01/22) Abnormal posture (06/01/22) Visit Care Team Role Provider Type Keyanna Gamino MD Attending Provider Physician Family Provider Primary Care Provider Referring Provider Specialty: Family Practice Address: [address] [place] [address], [id number] Email: [email or web address] Plan Of Care PT-OP-T Assessment and Plan Start: 05/27/22 18:14 Freq: Status: Active Protocol: Document 06/01/22 07:30 [facility] (Rec: 06/01/22 08:26 [facility] [id number]) Physical Therapy Assessment Rehab Potential Rehabilitation Potential Good Evaluation Complexity Number of Personal Factors/Comorbidities 3 or More Number of Body Systems Impaired 4 or More Clinical Presentation at Evaluation Evolving Impairments Impairments Activity Tolerance,Functional Activities,Functional Mobility ,Pain,Posture,ROM,Soft Tissue Mobility,Strength Goals stability Short Term Goal (STG) Pt will be indep w/HEP STG Duration 07/20 Distribution Center Administrator Goal (LTG) Pt will show imrpoved strength by inc MMT of UE to at leat 4 +/5 B and at least 3/5 EFT to shwo improved scap stabiltiy w /o loading the neck. LTG Duration 08/31 sleep Short Term Goal (STG) Pt will be educated on self management for pain at night and sleep positions to help dec pain at night. STG Duration 07/20/22 Detention Goal (LTG) Pt will report no distruption of sleep at night d/t pain. LTG Duration 08/31 ROM Short Term Goal (STG) Pt will improve ROM inall planes by 10 deg. STG Duration 07/30 Detention Goal (LTG) Pt will have rotation to at least 60 deg B w/o pain to allow improved ease with driving and flex to at least 50 deg to allow inc ease w/ reading. LTG Duration 08/31 NDI Impairment 15/50 Short Term Goal (STG) Pt will improve score to no greater than 9/50 to show improved functional ability STG Duration 07/20 Distribution Center Administrator Goal (LTG) Pt will improve score to no greater than 3/50 to show improved functional ability LTG Duration 08/31 Assessment Summary Assessment Pt presents w/neck pain that has been ongoing for 1 year w/ recent worsening in the past couple of months. Pain is mostly L sided and does not limit her from doing things, but makes doing the activities painful. She has trouble sleeping and has difficulty with ability to turn sideways w/o pain. She has scap winging on L side that is greater than R and has dec overall stability of scap along w/some mid to upper thoracic rounding w/fwd head which likely contributes to pain and dec ROM. She would benefit from skilled PT to work on these deficits. Physical Therapy Plan Frequency and Duration Frequency of Treatment 2x/Week Duration of Treatment 3 months Plan of Care Start Date 06/01/22 Plan of Care End Date 08/31/22 Therapeutic Interventions Therapeutic Interventions Home Exercise Program,Joint Mobilizations,Manual Therapy, Neuromuscular Re-education, Patient/Caregiver Education, Self-Care/Home Management,Soft Tissue Mobilization,Taping, Therapeutic Activities, Therapeutic Exercises Modalities Cold Pack/Ice Massage,Electric Stimulation,Hot Packs, Ultrasound Next Visit Focus/Plan Next Note Type Treatment Note Next Visit Plan review exercises, manual to upper tspine, manual to cervical mm, self release techniques, start scap stability exercises Plan of Care Dates Plan of Care Start Date 06/01/22 Plan of Care End Date 08/31/22 Electronically Signed by: Sallie Cosme, PT 06/01/22 [id number] If you are in agreement with this Plan of Care, please return a signed and dated copy. I have reviewed this Plan of Care and certify that the skilled therapy services above are required to meet the patient?s needs. Physician Signature Date Printed Name and Credentials Clinical Instructor Signature Printed Name and Credentials
--- NOTE | 2022-06-02 17:02 | PT.OTN ---
Current Diagnoses Cervicalgia (06/02/22) Abnormal posture (06/02/22) Physical Therapy Treatment Note PT-OP-A Visit Information Start: 05/27/22 18:14 Freq: Status: Active Protocol: Document 06/02/22 14:36 [facility] (Rec: 06/02/22 17:02 [facility] [id number]) Out-Patient Physical Therapy Visit Information Visit Information Visit Type Treatment Note Visit Start Time 14:37 Visit Stop Time 15:27 Total Visit Minutes 50 Visit Number 2 Number of ARMAMENT AIRCRAFT MECHANIC Visits 0 PT-OP-B Current Condition Start: 05/27/22 18:14 Freq: Status: Active Protocol: Document 06/01/22 07:30 [facility] (Rec: 06/01/22 08:26 [facility] [id number]) Current Condition History of Current Condition Onset Date 1 year Current Complaints neck pain History of Current Condition Pt reports pain in neck has been going on for about a year but got worse in February and March this year. She saw MD who did Xray and noticed crunching w/movement and pt notes taht is painful. It is difficult for her to get to sleep at night. Most of the pain is on the left and stays on the left. No neck pain history prior to the last year . Pt had a fall in the winter where she caught her foot and went forward but that didn't inc pain. No history of shoulder issues. Pt reprots occular migraines that happen only a couple times a year. Does reprot a bella few years ago in her bedroom where she hit the edge of a chest with left ribcage and may have fractured ribs but MD chose not to do xray Prior Treatments and Tests no other treatment Xray: IMPRESSION: 1. Multilevel degenerative disc disease. 2. Multilevel facet and uncovertebral arthropathy. 3. No fracture. No acute osseous lesion. If symptoms and/or clinical suspicion for pathology persists, evaluation with MRI should be considered for further assessment. Treatment Goals Patient/Caregiver Goals Get rid of the neck pain, be able to sleep PT-OP-C Subjective Start: 05/27/22 18:14 Freq: Status: Active Protocol: Document 06/02/22 14:36 [facility] (Rec: 06/02/22 17:02 [facility] [id number]) OP-PT Subjective Patient Comments Patient Comments Pt reprots compliance w/ exercises and feels like open book helped PT-OP-F Manual Assessment Start: 05/27/22 18:14 Freq: Status: Active Protocol: Document 06/01/22 07:30 [facility] (Rec: 06/01/22 08:26 [facility] [id number]) Manual Assessments Soft Tissue Assessment Soft Tissue Mobility Assessment L side mm significantly tighter & tender Joint Mobility Assessment Joint Mobility Assessment 1st rib L elevated, fwd rounded shoulder L>R PT-OP-J Posture/Palpation/Skin Start: 05/27/22 18:14 Freq: Status: Active Protocol: Document 06/01/22 07:30 [facility] (Rec: 06/01/22 08:26 [facility] [id number]) Posture Evaluation [facility] Postural Classification System Elbow Flexion Test 0 Comments Posture Comments mild kyphosis , fwd head PT-OP-K Range of Motion Start: 05/27/22 18:14 Freq: Status: Active Protocol: Document 06/01/22 07:30 [facility] (Rec: 06/01/22 08:26 [facility] [id number]) Cervical Spine Range of Motion Cervical Spine Active Degrees Flexion 45 Extension 32 Rotation Left 28 Rotation Right 42 Lateral Flexion Left 12 Lateral Flexion Right 17 Comments pain L SB, B rot PT-OP-L Special Tests Start: 05/27/22 18:14 Freq: Status: Active Protocol: Document 06/01/22 07:30 [facility] (Rec: 06/01/22 08:26 [facility] [id number]) Special Tests Cervical Spine Special Tests Vertebral Artery Test Results neg Spurling's Test Test Results neg Alar Ligament Test Results neg PT-OP-M Strength Start: 05/27/22 18:14 Freq: Status: Active Protocol: Document 06/01/22 07:30 [facility] (Rec: 06/01/22 08:26 [facility] [id number]) Shoulder Strength Shoulder Manual Muscle Testing Right Flexion 5 Normal Extension 5 Normal Abduction (C5) 4+ Good+ External Rotation 4- Good- Internal Rotation 4- Good- Left Flexion 4+ Good+ Extension 4+ Good+ Abduction (C5) 4+ Good+ External Rotation 4- Good- Internal Rotation 4- Good- Comments pain PT-OP-Q Treatments Start: 05/27/22 18:14 Freq: Status: Active Protocol: Document 06/02/22 14:36 [facility] (Rec: 06/02/22 17:02 [facility] [id number]) Therapeutic Exercises Sidelying Exercises open book Side bilateral Reps/Minutes 8 Sitting Exercises stretch Sitting Exercise Name UT & LS Side bilateral Reps/Minutes 30 sec Standing Exercises self STM Standing Exercise Name use of ball and theracane Reps/Minutes 2 min ER Standing Exercise Name cues for scap retract Side bilateral Reps/Minutes 15 row Side bilateral Equipment Used lvl 1 Reps/Minutes 15 Comments cues for UT Manual Therapy Treatment Soft Tissue Mobilization SO Mobilization Type Sustained Pressure Intensity/Depth Moderate Body Position Supine paraspinals Body Location L Mobilization Type Rolling,Strumming Intensity/Depth Moderate Body Position Supine UT/LS Body Location L Mobilization Type Rolling Intensity/Depth Moderate Body Position Supine PT-OP-T Assessment and Plan Start: 05/27/22 18:14 Freq: Status: Active Protocol: Document 06/02/22 14:36 [facility] (Rec: 06/02/22 17:02 [facility] [id number]) Physical Therapy Assessment Goals stability Short Term Goal (STG) Pt will be indep w/HEP STG Duration 07/20 Snf Goal (LTG) Pt will show imrpoved strength by inc MMT of UE to at leat 4 +/5 B and at least 3/5 EFT to shwo improved scap stabiltiy w /o loading the neck. LTG Duration 08/31 sleep Short Term Goal (STG) Pt will be educated on self management for pain at night and sleep positions to help dec pain at night. STG Duration 07/20/22 Snf Goal (LTG) Pt will report no distruption of sleep at night d/t pain. LTG Duration 08/31 ROM Short Term Goal (STG) Pt will improve ROM inall planes by 10 deg. STG Duration 07/30 Clinical Rn Goal (LTG) Pt will have rotation to at least 60 deg B w/o pain to allow improved ease with driving and flex to at least 50 deg to allow inc ease w/ reading. LTG Duration 08/31 NDI Impairment 15/50 Short Term Goal (STG) Pt will improve score to no greater than 9/50 to show improved functional ability STG Duration 07/20 Clinical Rn Goal (LTG) Pt will improve score to no greater than 3/50 to show improved functional ability LTG Duration 08/31 Assessment Summary Assessment pt reports relief w/manual treatment today. She required cues from all exercises from IE and a lot of cues required for dec UT engagement w/ strengthening exercises. Physical Therapy Plan Next Visit Focus/Plan Next Note Type Treatment Note Next Visit Plan review exercises, manual to upper tspine, manual to cervical mm
--- NOTE | 2022-06-08 09:13 | PT.OTN ---
Current Diagnoses Cervicalgia (06/08/22) Abnormal posture (06/08/22) Physical Therapy Treatment Note PT-OP-A Visit Information Start: 05/27/22 18:14 Freq: Status: Active Protocol: Document 06/08/22 07:31 [facility] (Rec: 06/08/22 09:12 [facility] [id number]) Out-Patient Physical Therapy Visit Information Visit Information Visit Type Treatment Note Visit Start Time 07:30 Visit Stop Time 08:23 Total Visit Minutes 53 Visit Number 3 Number of ERP PM Visits 0 PT-OP-B Current Condition Start: 05/27/22 18:14 Freq: Status: Active Protocol: Document 06/01/22 07:30 [facility] (Rec: 06/01/22 08:26 [facility] [id number]) Current Condition History of Current Condition Onset Date 1 year Current Complaints neck pain History of Current Condition Pt reports pain in neck has been going on for about a year but got worse in February and March this year. She saw MD who did Xray and noticed crunching w/movement and pt notes taht is painful. It is difficult for her to get to sleep at night. Most of the pain is on the left and stays on the left. No neck pain history prior to the last year . Pt had a fall in the winter where she caught her foot and went forward but that didn't inc pain. No history of shoulder issues. Pt reprots occular migraines that happen only a couple times a year. Does reprot a bella few years ago in her bedroom where she hit the edge of a chest with left ribcage and may have fractured ribs but MD chose not to do xray Prior Treatments and Tests no other treatment Xray: IMPRESSION: 1. Multilevel degenerative disc disease. 2. Multilevel facet and uncovertebral arthropathy. 3. No fracture. No acute osseous lesion. If symptoms and/or clinical suspicion for pathology persists, evaluation with MRI should be considered for further assessment. Treatment Goals Patient/Caregiver Goals Get rid of the neck pain, be able to sleep PT-OP-C Subjective Start: 05/27/22 18:14 Freq: Status: Active Protocol: Document 06/08/22 07:31 [facility] (Rec: 06/08/22 09:12 [facility] [id number]) OP-PT Subjective Patient Comments Patient Comments Compliance w/exercises. Has some questions with them. PT-OP-F Manual Assessment Start: 05/27/22 18:14 Freq: Status: Active Protocol: Document 06/01/22 07:30 [facility] (Rec: 06/01/22 08:26 [id number] Manual Assessments Soft Tissue Assessment Soft Tissue Mobility Assessment L side mm significantly tighter & tender Joint Mobility Assessment Joint Mobility Assessment 1st rib L elevated, fwd rounded shoulder L>R PT-OP-J Posture/Palpation/Skin Start: 05/27/22 18:14 Freq: Status: Active Protocol: Document 06/01/22 07:30 [facility] (Rec: 06/01/22 08:26 [facility] [id number]) Posture Evaluation [facility] Postural Classification System Elbow Flexion Test 0 Comments Posture Comments mild kyphosis , fwd head PT-OP-K Range of Motion Start: 05/27/22 18:14 Freq: Status: Active Protocol: Document 06/01/22 07:30 [facility] (Rec: 06/01/22 08:26 [facility] [id number]) Cervical Spine Range of Motion Cervical Spine Active Degrees Flexion 45 Extension 32 Rotation Left 28 Rotation Right 42 Lateral Flexion Left 12 Lateral Flexion Right 17 Comments pain L SB, B rot PT-OP-L Special Tests Start: 05/27/22 18:14 Freq: Status: Active Protocol: Document 06/01/22 07:30 [facility] (Rec: 06/01/22 08:26 [facility] [id number]) Special Tests Cervical Spine Special Tests Vertebral Artery Test Results neg Spurling's Test Test Results neg Alar Ligament Test Results neg PT-OP-M Strength Start: 05/27/22 18:14 Freq: Status: Active Protocol: Document 06/01/22 07:30 [facility] (Rec: 06/01/22 08:26 [facility] [id number]) Shoulder Strength Shoulder Manual Muscle Testing Right Flexion 5 Normal Extension 5 Normal Abduction (C5) 4+ Good+ External Rotation 4- Good- Internal Rotation 4- Good- Left Flexion 4+ Good+ Extension 4+ Good+ Abduction (C5) 4+ Good+ External Rotation 4- Good- Internal Rotation 4- Good- Comments pain PT-OP-Q Treatments Start: 05/27/22 18:14 Freq: Status: Active Protocol: Document 06/08/22 07:31 [facility] (Rec: 06/08/22 09:12 [facility] [id number]) Therapeutic Exercises Sidelying Exercises open book Side bilateral Reps/Minutes 5 Sitting Exercises stretch Sitting Exercise Name UT & LS Side bilateral Reps/Minutes 30 sec Standing Exercises self STM Standing Exercise Name use of ball and theracane Reps/Minutes 1 min ER Standing Exercise Name cues for scap retract Side bilateral Reps/Minutes 15 row Side bilateral Equipment Used lvl 1 Reps/Minutes 15 Comments cues for UT Manual Therapy Treatment Soft Tissue Mobilization paraspinals Body Location L Mobilization Type Rolling,Strumming Intensity/Depth Moderate Body Position Supine UT/LS Body Location L UT, LS, SCM Mobilization Type Rolling Intensity/Depth Moderate Body Position Supine Joint Mobilizations thoracic Comments transverse R T1 FM cervical Comments C1 & C2 transverse R C2 uAP L FM Self-Care/Home Management Treatment Education Other Education review of use of ice or heat prn, discussed use of anti- inflammatory creams as needed and educated on different iptiosn ppl find helpful. Edu re: use of exercises as needed for pain relief . DIscussed progressing slowly back to walking as lng as does not inc neck pain PT-OP-R Modalities Start: 05/27/22 18:14 Freq: Status: Active Protocol: Document 06/08/22 07:31 [facility] (Rec: 06/08/22 09:13 [facility] [id number]) Electric Stimulation Electric Stimulation Interferential Current (IFC) Body Location L UT/med scap Duration (Minutes) 10 Intensity 19 Patient Position Supine Combined With Heat/Cold Cold Pack PT-OP-T Assessment and Plan Start: 05/27/22 18:14 Freq: Status: Active Protocol: Document 06/08/22 07:31 [facility] (Rec: 06/08/22 09:12 [facility] [id number]) Physical Therapy Assessment Goals stability Short Term Goal (STG) Pt will be indep w/HEP STG Duration 07/20 Marketing Secretary Goal (LTG) Pt will show imrpoved strength by inc MMT of UE to at leat 4 +/5 B and at least 3/5 EFT to shwo improved scap stabiltiy w /o loading the neck. LTG Duration 08/31 sleep Short Term Goal (STG) Pt will be educated on self management for pain at night and sleep positions to help dec pain at night. STG Duration 07/20/22 Marketing Secretary Goal (LTG) Pt will report no distruption of sleep at night d/t pain. LTG Duration 08/31 ROM Short Term Goal (STG) Pt will improve ROM inall planes by 10 deg. STG Duration 07/30 Marketing Secretary Goal (LTG) Pt will have rotation to at least 60 deg B w/o pain to allow improved ease with driving and flex to at least 50 deg to allow inc ease w/ reading. LTG Duration 08/31 NDI Impairment 15/50 Short Term Goal (STG) Pt will improve score to no greater than 9/50 to show improved functional ability STG Duration 07/20 Long-Term Goal (LTG) Pt will improve score to no greater than 3/50 to show improved functional ability LTG Duration 08/31 Assessment Summary Assessment Pt did well with exercises with minc ues but does still require cueing thorughout. She is stillv charly tight in L cervical mm Physical Therapy Plan Frequency and Duration Frequency of Treatment 2x/Week Duration of Treatment 3 months Plan of Care Start Date 06/01/22 Plan of Care End Date 08/31/22 Next Visit Focus/Plan Next Note Type Treatment Note Next Visit Plan review exercises, manual to upper tspine, manual to cervical mm, assess response to estim
--- NOTE | 2022-06-14 09:04 | PT.OTN ---
Current Diagnoses Cervicalgia (06/14/22) Abnormal posture (06/14/22) Physical Therapy Treatment Note PT-OP-A Visit Information Start: 05/27/22 18:14 Freq: Status: Active Protocol: Document 06/14/22 08:14 [facility] (Rec: 06/14/22 09:04 NB [id number]) Out-Patient Physical Therapy Visit Information Visit Information Visit Type Treatment Note Visit Start Time 08:16 Visit Stop Time 09:00 Total Visit Minutes 44 Visit Number 4 Number of CORRECTIONAL OFFICER SERGEANT Visits 1 PT-OP-B Current Condition Start: 05/27/22 18:14 Freq: Status: Active Protocol: Document 06/01/22 07:30 [facility] (Rec: 06/01/22 08:26 [facility] [id number]) Current Condition History of Current Condition Onset Date 1 year Current Complaints neck pain History of Current Condition Pt reports pain in neck has been going on for about a year but got worse in February and March this year. She saw MD who did Xray and noticed crunching w/movement and pt notes taht is painful. It is difficult for her to get to sleep at night. Most of the pain is on the left and stays on the left. No neck pain history prior to the last year . Pt had a fall in the winter where she caught her foot and went forward but that didn't inc pain. No history of shoulder issues. Pt reprots occular migraines that happen only a couple times a year. Does reprot a bella few years ago in her bedroom where she hit the edge of a chest with left ribcage and may have fractured ribs but MD chose not to do xray Prior Treatments and Tests no other treatment Xray: IMPRESSION: 1. Multilevel degenerative disc disease. 2. Multilevel facet and uncovertebral arthropathy. 3. No fracture. No acute osseous lesion. If symptoms and/or clinical suspicion for pathology persists, evaluation with MRI should be considered for further assessment. Treatment Goals Patient/Caregiver Goals Get rid of the neck pain, be able to sleep PT-OP-C Subjective Start: 05/27/22 18:14 Freq: Status: Active Protocol: Document 06/14/22 08:14 [facility] (Rec: 06/14/22 09:04 [facility] [id number]) OP-PT Subjective Patient Comments Patient Comments Pt reports she thought the E- stim helped for a little while after treatment. She is very sore today mostly on her left. She got Arnica cream today which she will try later - is allergic to NSAIDs. PT-OP-F Manual Assessment Start: 05/27/22 18:14 Freq: Status: Active Protocol: Document 06/01/22 07:30 [facility] (Rec: 06/01/22 08:26 [facility] [id number]) Manual Assessments Soft Tissue Assessment Soft Tissue Mobility Assessment L side mm significantly tighter & tender Joint Mobility Assessment Joint Mobility Assessment 1st rib L elevated, fwd rounded shoulder L>R PT-OP-J Posture/Palpation/Skin Start: 05/27/22 18:14 Freq: Status: Active Protocol: Document 06/01/22 07:30 [facility] (Rec: 06/01/22 08:26 [facility] [id number]) Posture Evaluation [facility] Postural Classification System Elbow Flexion Test 0 Comments Posture Comments mild kyphosis , fwd head PT-OP-K Range of Motion Start: 05/27/22 18:14 Freq: Status: Active Protocol: Document 06/01/22 07:30 [facility] (Rec: 06/01/22 08:26 [facility] [id number]) Cervical Spine Range of Motion Cervical Spine Active Degrees Flexion 45 Extension 32 Rotation Left 28 Rotation Right 42 Lateral Flexion Left 12 Lateral Flexion Right 17 Comments pain L SB, B rot PT-OP-L Special Tests Start: 05/27/22 18:14 Freq: Status: Active Protocol: Document 06/01/22 07:30 [facility] (Rec: 06/01/22 08:26 [facility] [id number]) Special Tests Cervical Spine Special Tests Vertebral Artery Test Results neg Spurling's Test Test Results neg Alar Ligament Test Results neg PT-OP-M Strength Start: 05/27/22 18:14 Freq: Status: Active Protocol: Document 06/01/22 07:30 [facility] (Rec: 06/01/22 08:26 [facility] [id number]) Shoulder Strength Shoulder Manual Muscle Testing Right Flexion 5 Normal Extension 5 Normal Abduction (C5) 4+ Good+ External Rotation 4- Good- Internal Rotation 4- Good- Left Flexion 4+ Good+ Extension 4+ Good+ Abduction (C5) 4+ Good+ External Rotation 4- Good- Internal Rotation 4- Good- Comments pain PT-OP-Q Treatments Start: 05/27/22 18:14 Freq: Status: Active Protocol: Document 06/14/22 08:14 [facility] (Rec: 06/14/22 09:04 [facility] [id number]) Therapeutic Exercises Sidelying Exercises open book Side bilateral Equipment Used pillow between knees/ankles Reps/Minutes 8 x 3 breath hold Comments cues for gentle movement Sitting Exercises stretch Sitting Exercise Name UT & LS Side bilateral Reps/Minutes 30 sec Comments cues for pain-free range Standing Exercises self STM Standing Exercise Name use of ball Reps/Minutes 1 min Comments cues for placement and controlling in sock ER Standing Exercise Name cues for scap retract Side bilateral Resistance Lvl1 Band Reps/Minutes 15 Comments cues for elbows at side row Side bilateral Equipment Used lvl 1 Reps/Minutes 15 Comments cues for form Manual Therapy Treatment Soft Tissue Mobilization SO Mobilization Type Sustained Pressure Intensity/Depth Moderate Body Position Supine paraspinals Body Location L Mobilization Type Rolling,Strumming Intensity/Depth Moderate Body Position Supine UT/LS Body Location L UT, LS, SCM Mobilization Type Rolling Intensity/Depth Moderate Body Position Supine Comments w/ cervical manual traction PT-OP-R Modalities Start: 05/27/22 18:14 Freq: Status: Active Protocol: Document 06/14/22 08:14 [facility] (Rec: 06/14/22 09:04 [facility] [id number]) Electric Stimulation Electric Stimulation Interferential Current (IFC) Body Location L UT/med scap Duration (Minutes) 10 Intensity 19 Patient Position Supine Combined With Heat/Cold Cold Pack PT-OP-T Assessment and Plan Start: 05/27/22 18:14 Freq: Status: Active Protocol: Document 06/14/22 08:14 MARIA EUGEN[facility] (Rec: 06/14/22 09:04 [facility] [id number]) Physical Therapy Assessment Goals stability Short Term Goal (STG) Pt will be indep w/HEP STG Duration 07/20 Custodial Goal (LTG) Pt will show imrpoved strength by inc MMT of UE to at leat 4 +/5 B and at least 3/5 EFT to shwo improved scap stabiltiy w /o loading the neck. LTG Duration 08/31 sleep Short Term Goal (STG) Pt will be educated on self management for pain at night and sleep positions to help dec pain at night. STG Duration 07/20/22 Dry House Tender Goal (LTG) Pt will report no distruption of sleep at night d/t pain. LTG Duration 08/31 ROM Short Term Goal (STG) Pt will improve ROM inall planes by 10 deg. STG Duration 07/30 Dry House Tender Goal (LTG) Pt will have rotation to at least 60 deg B w/o pain to allow improved ease with driving and flex to at least 50 deg to allow inc ease w/ reading. LTG Duration 08/31 NDI Impairment 15/50 Short Term Goal (STG) Pt will improve score to no greater than 9/50 to show improved functional ability STG Duration 07/20 Custodial Goal (LTG) Pt will improve score to no greater than 3/50 to show improved functional ability LTG Duration 08/31 Assessment Summary Assessment Treatment focus on HEP review and manual therapy. Amrlen requires cues for staying within pain-free range w/ stretches but self-awareness improves throughout treatment duration. Pt has palpable tightness L>R in L Upper trapezius and Levator scapula which improves w/ manual therapy. Pt would benefit from continued skilled therapeutic intervention. Physical Therapy Plan Next Visit Focus/Plan Next Note Type Treatment Note Next Visit Plan review exercises, manual to upper tspine, manual to cervical mm, assess response to estim
--- NOTE | 2022-06-17 09:03 | PT.OTN ---
Current Diagnoses Cervicalgia (06/17/22) Abnormal posture (06/17/22) Physical Therapy Treatment Note PT-OP-A Visit Information Start: 05/27/22 18:14 Freq: Status: Active Protocol: Document 06/17/22 08:14 SP (Rec: 06/17/22 09:04 SP [id number]) Out-Patient Physical Therapy Visit Information Visit Information Visit Type Treatment Note Visit Start Time 08:15 Visit Stop Time 09:03 Total Visit Minutes 48 Visit Number 5 Number of CHIEF DOG LICENSE INSPECTOR Visits 2 PT-OP-B Current Condition Start: 05/27/22 18:14 Freq: Status: Active Protocol: Document 06/01/22 07:30 LR (Rec: 06/01/22 08:26 [facility] [id number]) Current Condition History of Current Condition Onset Date 1 year Current Complaints neck pain History of Current Condition Pt reports pain in neck has been going on for about a year but got worse in February and March this year. She saw MD who did Xray and noticed crunching w/movement and pt notes taht is painful. It is difficult for her to get to sleep at night. Most of the pain is on the left and stays on the left. No neck pain history prior to the last year . Pt had a fall in the winter where she caught her foot and went forward but that didn't inc pain. No history of shoulder issues. Pt reprots occular migraines that happen only a couple times a year. Does reprot a bella few years ago in her bedroom where she hit the edge of a chest with left ribcage and may have fractured ribs but MD chose not to do xray Prior Treatments and Tests no other treatment Xray: IMPRESSION: 1. Multilevel degenerative disc disease. 2. Multilevel facet and uncovertebral arthropathy. 3. No fracture. No acute osseous lesion. If symptoms and/or clinical suspicion for pathology persists, evaluation with MRI should be considered for further assessment. Treatment Goals Patient/Caregiver Goals Get rid of the neck pain, be able to sleep PT-OP-C Subjective Start: 05/27/22 18:14 Freq: Status: Active Protocol: Document 06/17/22 08:14 SP (Rec: 06/17/22 09:04 SP [id number]) OP-PT Subjective Patient Comments Patient Comments Pt reported felt good for little bit after last appt. She felt the manual and IFC helped but not long lasting. Still has pain over L anterolateral neck. PT-OP-F Manual Assessment Start: 05/27/22 18:14 Freq: Status: Active Protocol: Document 06/01/22 07:30 [id number] Manual Assessments Soft Tissue Assessment Soft Tissue Mobility Assessment L side mm significantly tighter & tender Joint Mobility Assessment Joint Mobility Assessment 1st rib L elevated, fwd rounded shoulder L>R PT-OP-J Posture/Palpation/Skin Start: 05/27/22 18:14 Freq: Status: Active Protocol: Document 06/01/22 07:30 [facility] (Rec: [facility]/01/22 08[id number] Posture Evaluation Nagi Postural Classification System Elbow Flexion Test 0 Comments Posture Comments mild kyphosis , fwd head PT-OP-K Range of Motion Start: 05/27/22 18:14 Freq: Status: Active Protocol: Document 06/01/22 07:30 [facility] (Rec: 06/01/22 08:26 [facility] [id number]) Cervical Spine Range of Motion Cervical Spine Active Degrees Flexion 45 Extension 32 Rotation Left 28 Rotation Right 42 Lateral Flexion Left 12 Lateral Flexion Right 17 Comments pain L SB, B rot PT-OP-L Special Tests Start: 05/27/22 18:14 Freq: Status: Active Protocol: Document 06/01/22 07:30 [facility] (Rec: 06/01/22 08:26 [facility] [id number]) Special Tests Cervical Spine Special Tests Vertebral Artery Test Results neg Spurling's Test Test Results neg Alar Ligament Test Results neg PT-OP-M Strength Start: 05/27/22 18:14 Freq: Status: Active Protocol: Document 06/01/22 07:30 [facility] (Rec: 06/01/22 08:26 [facility] [id number]) Shoulder Strength Shoulder Manual Muscle Testing Right Flexion 5 Normal Extension 5 Normal Abduction (C5) 4+ Good+ External Rotation 4- Good- Internal Rotation 4- Good- Left Flexion 4+ Good+ Extension 4+ Good+ Abduction (C5) 4+ Good+ External Rotation 4- Good- Internal Rotation 4- Good- Comments pain PT-OP-Q Treatments Start: 05/27/22 18:14 Freq: Status: Active Protocol: Document 06/17/22 08:14 SP (Rec: 06/17/22 09:04 SP [id number]) Therapeutic Exercises Standing Exercises self STM Standing Exercise Name theracane: neck upper scap Side left Reps/Minutes 1 min Comments cues for placement and controlling in sock ER Standing Exercise Name cues for scap retract Side bilateral Resistance Lvl1 Band Reps/Minutes 15 Comments cues for elbows at side w/ scap retract, neutral CS tall posture row Standing Exercise Name verbal rev iew Side bilateral Equipment Used lvl 1 Reps/Minutes 15 Comments cues for form Manual Therapy Treatment Soft Tissue Mobilization SO Body Location B- SOR Mobilization Type Sustained Pressure Intensity/Depth Moderate Body Position Supine paraspinals Body Location L>R Mobilization Type Rolling,Strumming Intensity/Depth Moderate Body Position Supine UT/LS Body Location L>R UT, LS, SCM Mobilization Type Rolling Intensity/Depth Moderate Body Position Supine Comments sustained pressure w/ head nods/turns and ed for use theracane and or ball on wall for home assist. Good feedback . Self-Care/Home Management Treatment Education Patient Education Body Mechanics,Home Exercise Program,Pain Management, Posture Other Education Ed of anatomy and alignment with use pillows sidesleeping between BLEs, UEs, under lateral ribcage and head with rolled towel in bottom pillow case for neck neutral spine support. Good feedback response, this feels good. Ed use theracane with neck: MWM- good feedback. PT-OP-R Modalities Start: 05/27/22 18:14 Freq: Status: Active Protocol: Document 06/14/22 08:14 NBM (Rec: 06/14/22 09:04 NBM [id number]) Electric Stimulation Electric Stimulation Interferential Current (IFC) Body Location L UT/med scap Duration (Minutes) 10 Intensity 19 Patient Position Supine Combined With Heat/Cold Cold Pack PT-OP-T Assessment and Plan Start: 05/27/22 18:14 Freq: Status: Active Protocol: Document 06/17/22 08:14 SP (Rec: 06/17/22 09:04 SP [id number]) Physical Therapy Assessment Goals stability Short Term Goal (STG) Pt will be indep w/HEP STG Duration 07/20 Long-Term Goal (LTG) Pt will show imrpoved strength by inc MMT of UE to at leat 4 +/5 B and at least 3/5 EFT to shwo improved scap stabiltiy w /o loading the neck. LTG Duration 08/31 sleep Short Term Goal (STG) Pt will be educated on self management for pain at night and sleep positions to help dec pain at night. STG Duration 07/20/22 Gas Golf Cart Repairer Goal (LTG) Pt will report no distruption of sleep at night d/t pain. LTG Duration 08/31 ROM Short Term Goal (STG) Pt will improve ROM inall planes by 10 deg. STG Duration 07/30 Gas Golf Cart Repairer Goal (LTG) Pt will have rotation to at least 60 deg B w/o pain to allow improved ease with driving and flex to at least 50 deg to allow inc ease w/ reading. LTG Duration 08/31 NDI Impairment 15/50 Short Term Goal (STG) Pt will improve score to no greater than 9/50 to show improved functional ability STG Duration 07/20 Long-Term Goal (LTG) Pt will improve score to no greater than 3/50 to show improved functional ability LTG Duration 08/31 Assessment Summary Assessment Pt reported improvement in L UT tension and how can self STMs as well as awareness of sleeping alignment with support of pillows for neck/ trunk alignment to lessen tightness with verbalized wow didn't realize sleeping can affect pain experiencing, felt alot better sleeping with the pillows, I can do this. I will buy one of these theracanes for home to help feel better. Improved posture with HEP review post ed of alignment and manual. Physical Therapy Plan Frequency and Duration Frequency of Treatment 2x/Week Duration of treatment (weeks) 12 Plan of Care Start Date 06/01/22 Plan of Care End Date 08/31/22 Therapeutic Interventions Therapeutic Interventions Home Exercise Program,Joint Mobilizations,Manual Therapy, Neuromuscular Re-education, Patient/Caregiver Education, Self-Care/Home Management,Soft Tissue Mobilization,Taping, Therapeutic Activities, Therapeutic Exercises Modalities Cold Pack/Ice Massage,Electric Stimulation,Hot Packs, Ultrasound Next Visit Focus/Plan Next Note Type Treatment Note Next Visit Plan REcheck how use pillows sleeping. Add CS rotation. HEP review exercises, manual to upper tspine, manual to cervical mm, assess response to estim
--- NOTE | 2022-06-22 11:30 | PT.OTN ---
Current Diagnoses Cervicalgia (09/02/22) Abnormal posture (09/02/22) Physical Therapy Treatment Note PT-OP-A Visit Information Start: 05/27/22 18:14 Freq: Status: Active Protocol: Document 06/22/22 09:03 NBM (Rec: 06/22/22 09:54 [facility] [id number]) Out-Patient Physical Therapy Visit Information Visit Information Visit Type Treatment Note Visit Start Time 09:04 Visit Stop Time 09:50 Total Visit Minutes 46 Visit Number 6 Number of ELEVATOR CONSTRUCTOR HELPER Visits 3 PT-OP-B Current Condition Start: 05/27/22 18:14 Freq: Status: Active Protocol: Document 06/01/22 07:30 LR (Rec: 06/01/22 08:26 [facility] [id number]) Current Condition History of Current Condition Onset Date 1 year Current Complaints neck pain History of Current Condition Pt reports pain in neck has been going on for about a year but got worse in February and March this year. She saw MD who did Xray and noticed crunching w/movement and pt notes taht is painful. It is difficult for her to get to sleep at night. Most of the pain is on the left and stays on the left. No neck pain history prior to the last year . Pt had a fall in the winter where she caught her foot and went forward but that didn't inc pain. No history of shoulder issues. Pt reprots occular migraines that happen only a couple times a year. Does reprot a bella few years ago in her bedroom where she hit the edge of a chest with left ribcage and may have fractured ribs but MD chose not to do xray Prior Treatments and Tests no other treatment Xray: IMPRESSION: 1. Multilevel degenerative disc disease. 2. Multilevel facet and uncovertebral arthropathy. 3. No fracture. No acute osseous lesion. If symptoms and/or clinical suspicion for pathology persists, evaluation with MRI should be considered for further assessment. Treatment Goals Patient/Caregiver Goals Get rid of the neck pain, be able to sleep PT-OP-C Subjective Start: 05/27/22 18:14 Freq: Status: Active Protocol: Document 06/22/22 09:03 NBM (Rec: 06/22/22 09:54 [facility] [id number]) OP-PT Subjective Patient Comments Patient Comments Pt reports sleep is not much better and her L side of her neck is sore. She thinks the Arnica cream helps but has not put it on yet today. She is doing her exercises. PT-OP-F Manual Assessment Start: 05/27/22 18:14 Freq: Status: Active Protocol: Document 06/01/22 07:30 [facility] (Rec: 06/01/22 08:26 [facility] [id number]) Manual Assessments Soft Tissue Assessment Soft Tissue Mobility Assessment L side mm significantly tighter & tender Joint Mobility Assessment Joint Mobility Assessment 1st rib L elevated, fwd rounded shoulder L>R PT-OP-J Posture/Palpation/Skin Start: 05/27/22 18:14 Freq: Status: Active Protocol: Document 08/26/22 13:01 [facility] (Rec: 08/26/22 18:46 [facility] [id number]) Posture Evaluation Nagi Postural Classification System Elbow Flexion Test 1 PT-OP-K Range of Motion Start: 05/27/22 18:14 Freq: Status: Active Protocol: Document 08/26/22 13:01 [facility] (Rec: 08/26/22 18:46 [facility] [id number]) Cervical Spine Range of Motion Cervical Spine Active Degrees Flexion 60 Extension 48 Rotation Left 49 Rotation Right 43 Lateral Flexion Left 32 Lateral Flexion Right 35 Comments pain L>R SB, B rot PT-OP-L Special Tests Start: 05/27/22 18:14 Freq: Status: Active Protocol: Document 06/01/22 07:30 [facility] (Rec: 06/01/22 08:26 [facility] [id number]) Special Tests Cervical Spine Special Tests Vertebral Artery Test Results neg Spurling's Test Test Results neg Alar Ligament Test Results neg PT-OP-M Strength Start: 05/27/22 18:14 Freq: Status: Active Protocol: Document 08/26/22 13:01 [facility] (Rec: 08/26/22 18:46 [facility] [id number]) Shoulder Strength Shoulder Manual Muscle Testing Right Flexion 5 Normal Extension 5 Normal Abduction (C5) 5 Normal External Rotation 5 Normal Internal Rotation 5 Normal Left Flexion 5 Normal Extension 5 Normal Abduction (C5) 5 Normal External Rotation 5 Normal Internal Rotation 5 Normal Comments pain after resistance PT-OP-Q Treatments Start: 05/27/22 18:14 Freq: Status: Active Protocol: Document 06/22/22 09:03 NBM (Rec: 06/22/22 09:54 NBM [id number]) Therapeutic Exercises Sitting Exercises stretch Sitting Exercise Name UT & LS Side bilateral Reps/Minutes 30 sec Comments cues for pain-free range Standing Exercises babatunde extension Standing Exercise Name added to HEP Resistance Lvl1 Reps/Minutes x15 Chin tucks Standing Exercise Name against wall w/ towel roll - added to HEP Reps/Minutes 5 x 5SH Comments cues for breathing ER Standing Exercise Name cues for scap retract Side bilateral Resistance Lvl1 Band Reps/Minutes 15 Comments cues for elbows at side w/ scap retract, palms up row Side bilateral Equipment Used lvl 1 Reps/Minutes 15 Comments cues for form Manual Therapy Treatment Soft Tissue Mobilization SO Body Location B- SOR Mobilization Type Sustained Pressure Intensity/Depth Moderate Body Position Supine paraspinals Body Location L>R Mobilization Type Rolling,Strumming Intensity/Depth Moderate Body Position Supine UT/LS Body Location L>R UT, LS, SCM Mobilization Type Rolling Intensity/Depth Moderate Body Position Supine Comments sustained pressure w/ head nods/turns and ed for use theracane and or ball on wall for home assist. Good feedback . Self-Care/Home Management Treatment Education Patient Education Home Exercise Program,Posture Other Education Chin tucks at wall and resisted shoulder ext added to HEP - HO printed to give to pt next treatment. PT-OP-R Modalities Start: 05/27/22 18:14 Freq: Status: Active Protocol: Document 06/22/22 09:03 [facility] (Rec: 06/22/22 09:54 [facility] [id number]) Electric Stimulation Electric Stimulation Interferential Current (IFC) Body Location L UT/med scap Duration (Minutes) 10 Intensity 19 Patient Position Supine Combined With Heat/Cold Cold Pack PT-OP-T Assessment and Plan Start: 05/27/22 18:14 Freq: Status: Active Protocol: Document 06/22/22 09:03 [facility] (Rec: 06/22/22 09:54 [facility] [id number]) Physical Therapy Assessment Goals stability Short Term Goal (STG) Pt will be indep w/HEP STG Duration 07/20 Tire Worker Goal (LTG) Pt will show imrpoved strength by inc MMT of UE to at leat 4 +/5 B and at least 3/5 EFT to shwo improved scap stabiltiy w /o loading the neck. LTG Duration 08/31 sleep Short Term Goal (STG) Pt will be educated on self management for pain at night and sleep positions to help dec pain at night. STG Duration 07/20/22 Tire Worker Goal (LTG) Pt will report no distruption of sleep at night d/t pain. LTG Duration 08/31 ROM Short Term Goal (STG) Pt will improve ROM inall planes by 10 deg. STG Duration 07/30 Assisted Goal (LTG) Pt will have rotation to at least 60 deg B w/o pain to allow improved ease with driving and flex to at least 50 deg to allow inc ease w/ reading. LTG Duration 08/31 NDI Impairment 15/50 Short Term Goal (STG) Pt will improve score to no greater than 9/50 to show improved functional ability STG Duration 07/20 Tire Worker Goal (LTG) Pt will improve score to no greater than 3/50 to show improved functional ability LTG Duration 08/31 Assessment Summary Assessment Pt requires cues for chin tucks for improved posture. Added Chin tucks and resisted shoulder ext - HO printed to give to pt next visit. Pt has a positive feedback response to manual therapy and palpable tightness to L scalenes decreases with manual therapy. Physical Therapy Plan Frequency and Duration Frequency of Treatment 2x/Week Duration of treatment (weeks) 12 Plan of Care Start Date 06/01/22 Plan of Care End Date 08/31/22 Therapeutic Interventions Therapeutic Interventions Home Exercise Program,Joint Mobilizations,Manual Therapy, Neuromuscular Re-education, Patient/Caregiver Education, Self-Care/Home Management,Soft Tissue Mobilization,Taping, Therapeutic Activities, Therapeutic Exercises Next Visit Focus/Plan Next Note Type Treatment Note Next Visit Plan REcheck how use pillows sleeping. Add CS rotation. HEP review exercises, manual to upper tspine, manual to cervical mm, assess response to estim
--- NOTE | 2022-06-28 18:29 | PT.OTN ---
Current Diagnoses Cervicalgia (06/28/22) Abnormal posture (06/28/22) Physical Therapy Treatment Note PT-OP-A Visit Information Start: 05/27/22 18:14 Freq: Status: Active Protocol: Document 06/28/22 14:34 [facility] (Rec: 06/28/22 18:29 [facility] [id number]) Out-Patient Physical Therapy Visit Information Visit Information Visit Type Treatment Note Visit Start Time 14:35 Visit Stop Time 15:30 Total Visit Minutes 55 Visit Number 7 Number of COAT FINISHER Visits 0 PT-OP-B Current Condition Start: 05/27/22 18:14 Freq: Status: Active Protocol: Document 06/01/22 07:30 [facility] (Rec: 06/01/22 08:26 [facility] [id number]) Current Condition History of Current Condition Onset Date 1 year Current Complaints neck pain History of Current Condition Pt reports pain in neck has been going on for about a year but got worse in February and March this year. She saw MD who did Xray and noticed crunching w/movement and pt notes taht is painful. It is difficult for her to get to sleep at night. Most of the pain is on the left and stays on the left. No neck pain history prior to the last year . Pt had a fall in the winter where she caught her foot and went forward but that didn't inc pain. No history of shoulder issues. Pt reprots occular migraines that happen only a couple times a year. Does reprot a bella few years ago in her bedroom where she hit the edge of a chest with left ribcage and may have fractured ribs but MD chose not to do xray Prior Treatments and Tests no other treatment Xray: IMPRESSION: 1. Multilevel degenerative disc disease. 2. Multilevel facet and uncovertebral arthropathy. 3. No fracture. No acute osseous lesion. If symptoms and/or clinical suspicion for pathology persists, evaluation with MRI should be considered for further assessment. Treatment Goals Patient/Caregiver Goals Get rid of the neck pain, be able to sleep PT-OP-C Subjective Start: 05/27/22 18:14 Freq: Status: Active Protocol: Document 06/28/22 14:34 [facility] (Rec: 06/28/22 18:29 [facility] [id number]) OP-PT Subjective Patient Comments Patient Comments Pt reports she did not feel like the roll helped but hurt her neck more. Pt reports pain is up/down PT-OP-F Manual Assessment Start: 05/27/22 18:14 Freq: Status: Active Protocol: Document 06/01/22 07:30 [facility] (Rec: 06/01/22 08:26 [facility] [id number]) Manual Assessments Soft Tissue Assessment Soft Tissue Mobility Assessment L side mm significantly tighter & tender Joint Mobility Assessment Joint Mobility Assessment 1st rib L elevated, fwd rounded shoulder L>R PT-OP-J Posture/Palpation/Skin Start: 05/27/22 18:14 Freq: Status: Active Protocol: Document 06/01/22 07:30 [facility] (Rec: 06/01/22 08:26 [facility] [id number]) Posture Evaluation Nagi Postural Classification System Elbow Flexion Test 0 Comments Posture Comments mild kyphosis , fwd head PT-OP-K Range of Motion Start: 05/27/22 18:14 Freq: Status: Active Protocol: Document 06/01/22 07:30 [facility] (Rec: 06/01/22 08:26 [facility] [id number]) Cervical Spine Range of Motion Cervical Spine Active Degrees Flexion 45 Extension 32 Rotation Left 28 Rotation Right 42 Lateral Flexion Left 12 Lateral Flexion Right 17 Comments pain L SB, B rot PT-OP-L Special Tests Start: 05/27/22 18:14 Freq: Status: Active Protocol: Document 06/01/22 07:30 [facility] (Rec: 06/01/22 08:26 [facility] [id number]) Special Tests Cervical Spine Special Tests Vertebral Artery Test Results neg Spurling's Test Test Results neg Alar Ligament Test Results neg PT-OP-M Strength Start: 05/27/22 18:14 Freq: Status: Active Protocol: Document 06/01/22 07:30 [facility] (Rec: 06/01/22 08:26 [facility] [id number]) Shoulder Strength Shoulder Manual Muscle Testing Right Flexion 5 Normal Extension 5 Normal Abduction (C5) 4+ Good+ External Rotation 4- Good- Internal Rotation 4- Good- Left Flexion 4+ Good+ Extension 4+ Good+ Abduction (C5) 4+ Good+ External Rotation 4- Good- Internal Rotation 4- Good- Comments pain PT-OP-Q Treatments Start: 05/27/22 18:14 Freq: Status: Active Protocol: Document 06/28/22 14:34 [facility] (Rec: 06/28/22 18:29 [facility] [id number]) Therapeutic Exercises Standing Exercises wall posture Standing Exercise Name wall roll up w/UE ext Side bilateral Reps/Minutes 2 roll ups and hold 1 min Comments inc time and cues for set up Chin tucks Standing Exercise Name when on wall-working on neck position Reps/Minutes 5 Manual Therapy Treatment Soft Tissue Mobilization SO Body Location B- SOR Mobilization Type Sustained Pressure Intensity/Depth Moderate Body Position Supine paraspinals Body Location L>R Mobilization Type Rolling,Strumming Intensity/Depth Moderate Body Position Supine UT/LS Body Location L>R UT, LS, SCM, scalenes Mobilization Type Rolling Intensity/Depth Moderate Body Position Supine Joint Mobilizations ribs Comments ribs 1-2 caudal FM thoracic Comments T1-3transverse R FM cervical Comments C2 transverse R PT-OP-R Modalities Start: 05/27/22 18:14 Freq: Status: Active Protocol: Document 06/28/22 14:34 [facility] (Rec: 06/28/22 18:29 [facility] [id number]) Electric Stimulation Electric Stimulation Interferential Current (IFC) Body Location L UT/med scap Duration (Minutes) 12 Intensity 16 Patient Position Supine Combined With Heat/Cold Cold Pack PT-OP-T Assessment and Plan Start: 05/27/22 18:14 Freq: Status: Active Protocol: Document 06/28/22 14:34 [facility] (Rec: 06/28/22 18:29 [id number] Physical Therapy Assessment Goals stability Short Term Goal (STG) Pt will be indep w/HEP STG Duration 07/20 Fpc Goal (LTG) Pt will show imrpoved strength by inc MMT of UE to at leat 4 +/5 B and at least 3/5 EFT to shwo improved scap stabiltiy w /o loading the neck. LTG Duration 08/31 sleep Short Term Goal (STG) Pt will be educated on self management for pain at night and sleep positions to help dec pain at night. STG Duration 07/20/22 Chief Counsel Goal (LTG) Pt will report no distruption of sleep at night d/t pain. LTG Duration 08/31 ROM Short Term Goal (STG) Pt will improve ROM inall planes by 10 deg. STG Duration 07/30 Fpc Goal (LTG) Pt will have rotation to at least 60 deg B w/o pain to allow improved ease with driving and flex to at least 50 deg to allow inc ease w/ reading. LTG Duration 08/31 NDI Impairment 15/50 Short Term Goal (STG) Pt will improve score to no greater than 9/50 to show improved functional ability STG Duration 07/20 Fpc Goal (LTG) Pt will improve score to no greater than 3/50 to show improved functional ability LTG Duration 08/31 Assessment Summary Assessment Pt did well with wall posture exercise but did require cues and has some stiffness in tspine that limites her ability for good neutral cervical position. Much improved L SB ROM after manual Physical Therapy Plan Frequency and Duration Frequency of Treatment 2x/Week Duration of treatment (weeks) 12 Plan of Care Start Date 06/01/22 Plan of Care End Date 08/31/22 Next Visit Focus/Plan Next Note Type Treatment Note Next Visit Plan REcheck how use pillows sleeping. Add CS rotation exercise manual to upper tspine, manual to cervical mm
--- NOTE | 2022-07-02 12:00 | PT.OTN ---
Current Diagnoses Cervicalgia (07/02/22) Abnormal posture (07/02/22) Physical Therapy Treatment Note PT-OP-A Visit Information Start: 05/27/22 18:14 Freq: Status: Active Protocol: Document 07/02/22 10:47 [facility] (Rec: 07/02/22 11:37 [facility] [id number]) Out-Patient Physical Therapy Visit Information Visit Information Visit Type Treatment Note Visit Start Time 10:47 Visit Stop Time 11:45 Total Visit Minutes 58 Visit Number 8 Number of DOMINATRIX Visits 1 PT-OP-B Current Condition Start: 05/27/22 18:14 Freq: Status: Active Protocol: Document 06/01/22 07:30 [facility] (Rec: 06/01/22 08:26 [facility] [id number]) Current Condition History of Current Condition Onset Date 1 year Current Complaints neck pain History of Current Condition Pt reports pain in neck has been going on for about a year but got worse in February and March this year. She saw MD who did Xray and noticed crunching w/movement and pt notes taht is painful. It is difficult for her to get to sleep at night. Most of the pain is on the left and stays on the left. No neck pain history prior to the last year . Pt had a fall in the winter where she caught her foot and went forward but that didn't inc pain. No history of shoulder issues. Pt reprots occular migraines that happen only a couple times a year. Does reprot a bella few years ago in her bedroom where she hit the edge of a chest with left ribcage and may have fractured ribs but MD chose not to do xray Prior Treatments and Tests no other treatment Xray: IMPRESSION: 1. Multilevel degenerative disc disease. 2. Multilevel facet and uncovertebral arthropathy. 3. No fracture. No acute osseous lesion. If symptoms and/or clinical suspicion for pathology persists, evaluation with MRI should be considered for further assessment. Treatment Goals Patient/Caregiver Goals Get rid of the neck pain, be able to sleep PT-OP-C Subjective Start: 05/27/22 18:14 Freq: Status: Active Protocol: Document 07/02/22 10:47 [facility] (Rec: 07/02/22 11:37 [facility] [id number]) OP-PT Subjective Patient Comments Patient Comments Pt states she had spouse look at her while sleeping but did not bring any pictures. She tried using a roll in her pillow case previously but found it hurt more. PT-OP-F Manual Assessment Start: 05/27/22 18:14 Freq: Status: Active Protocol: Document 06/01/22 07:30 [facility] (Rec: 06/01/22 08:26 [facility] [id number]) Manual Assessments Soft Tissue Assessment Soft Tissue Mobility Assessment L side mm significantly tighter & tender Joint Mobility Assessment Joint Mobility Assessment 1st rib L elevated, fwd rounded shoulder L>R PT-OP-J Posture/Palpation/Skin Start: 05/27/22 18:14 Freq: Status: Active Protocol: Document 06/01/22 07:30 [facility] (Rec: 06/01/22 08:26 [facility] [id number]) Posture Evaluation Nagi Postural Classification System Elbow Flexion Test 0 Comments Posture Comments mild kyphosis , fwd head PT-OP-K Range of Motion Start: 05/27/22 18:14 Freq: Status: Active Protocol: Document 06/01/22 07:30 [facility] (Rec: 06/01/22 08:26 [facility] [id number]) Cervical Spine Range of Motion Cervical Spine Active Degrees Flexion 45 Extension 32 Rotation Left 28 Rotation Right 42 Lateral Flexion Left 12 Lateral Flexion Right 17 Comments pain L SB, B rot PT-OP-L Special Tests Start: 05/27/22 18:14 Freq: Status: Active Protocol: Document 06/01/22 07:30 [facility] (Rec: 06/01/22 08:26 [facility] [id number]) Special Tests Cervical Spine Special Tests Vertebral Artery Test Results neg Spurling's Test Test Results neg Alar Ligament Test Results neg PT-OP-M Strength Start: 05/27/22 18:14 Freq: Status: Active Protocol: Document 06/01/22 07:30 [facility] (Rec: 06/01/22 08:26 [facility] [id number]) Shoulder Strength Shoulder Manual Muscle Testing Right Flexion 5 Normal Extension 5 Normal Abduction (C5) 4+ Good+ External Rotation 4- Good- Internal Rotation 4- Good- Left Flexion 4+ Good+ Extension 4+ Good+ Abduction (C5) 4+ Good+ External Rotation 4- Good- Internal Rotation 4- Good- Comments pain PT-OP-Q Treatments Start: 05/27/22 18:14 Freq: Status: Active Protocol: Document 07/02/22 10:47 [facility] (Rec: 07/05/22 08:19 [facility] [id number]) Therapeutic Exercises Sitting Exercises stretch Sitting Exercise Name UT & LS Side bilateral Reps/Minutes 30 sec Standing Exercises wall posture Standing Exercise Name 1. wall roll up w/UE ext 2. w/ scap squeeze - HEP Side bilateral Reps/Minutes 2 roll ups and hold 1 min Comments inc time and cues for set up babatunde extension Standing Exercise Name added to HEP Resistance Lvl1 Reps/Minutes x15 Comments w/ chin tuck Chin tucks Standing Exercise Name when on wall-working on neck position Reps/Minutes 5 ER Standing Exercise Name cues for scap retract Side bilateral Resistance Lvl1 Band Reps/Minutes 15 Comments cues for elbows at side w/ scap retract, palms up row Standing Exercise Name HEP Side bilateral Equipment Used lvl 1 Reps/Minutes 15 Comments cues for form Manual Therapy Treatment Soft Tissue Mobilization SO Body Location B- SOR Mobilization Type Sustained Pressure Intensity/Depth Moderate Body Position Supine paraspinals Body Location cervical L>R Mobilization Type Rolling,Strumming Intensity/Depth Moderate Body Position Supine UT/LS Body Location L>R UT, LS, SCM, scalenes Mobilization Type Rolling Intensity/Depth Moderate Body Position Supine Self-Care/Home Management Treatment Education Patient Education Home Exercise Program,Posture Other Education Added to HEP: Shoulder extension w/ Lvl 1 Tb, Wall Posture, and Chin tucks at wall - HO given. PT-OP-R Modalities Start: 05/27/22 18:14 Freq: Status: Active Protocol: Document 07/02/22 10:47 [facility] (Rec: 07/02/22 11:37 [facility] [id number]) Electric Stimulation Electric Stimulation Interferential Current (IFC) Body Location L UT/med scap Duration (Minutes) 10 Intensity 12>14 Patient Position Supine Combined With Heat/Cold Cold Pack PT-OP-T Assessment and Plan Start: 05/27/22 18:14 Freq: Status: Active Protocol: Document 07/02/22 10:47 [facility] (Rec: 07/02/22 11:37 [facility] [id number]) Physical Therapy Assessment Goals stability Short Term Goal (STG) Pt will be indep w/HEP STG Duration 07/20 Photogrammetrist Goal (LTG) Pt will show imrpoved strength by inc MMT of UE to at leat 4 +/5 B and at least 3/5 EFT to shwo improved scap stabiltiy w /o loading the neck. LTG Duration 08/31 sleep Short Term Goal (STG) Pt will be educated on self management for pain at night and sleep positions to help dec pain at night. STG Duration 07/20/22 Photogrammetrist Goal (LTG) Pt will report no distruption of sleep at night d/t pain. LTG Duration 08/31 ROM Short Term Goal (STG) Pt will improve ROM inall planes by 10 deg. STG Duration 07/30 Nursing Home Goal (LTG) Pt will have rotation to at least 60 deg B w/o pain to allow improved ease with driving and flex to at least 50 deg to allow inc ease w/ reading. LTG Duration 08/31 NDI Impairment 15/50 Short Term Goal (STG) Pt will improve score to no greater than 9/50 to show improved functional ability STG Duration 07/20 Nursing Home Goal (LTG) Pt will improve score to no greater than 3/50 to show improved functional ability LTG Duration 08/31 Assessment Summary Assessment Treatment focus on postural strengthening and manual therapy. Pt demonstrates improved postural awareness w/ chin tucks and scapular setting. Palpable tightness in L UT, cervical paraspinals and scalenes improves w/ manual therapy - good feedback response. Added to HEP: chin tucks at wall, wall posture, shoulder extensions w/ Lvl 1 TB. Pt to bring pictures of sleeping positions next visit. Physical Therapy Plan Frequency and Duration Frequency of Treatment 2x/Week Duration of treatment (weeks) 12 Plan of Care Start Date 06/01/22 Plan of Care End Date 08/31/22 Therapeutic Interventions Therapeutic Interventions Home Exercise Program,Joint Mobilizations,Manual Therapy, Neuromuscular Re-education, Patient/Caregiver Education, Self-Care/Home Management,Soft Tissue Mobilization,Taping, Therapeutic Activities, Therapeutic Exercises Modalities Cold Pack/Ice Massage,Electric Stimulation,Hot Packs, Ultrasound Next Visit Focus/Plan Next Note Type Treatment Note Next Visit Plan REcheck how use pillows sleeping. Add CS rotation exercise manual to upper tspine, manual to cervical mm
--- NOTE | 2022-07-06 15:17 | PT.OTN ---
Current Diagnoses Cervicalgia (07/06/22) Abnormal posture (07/06/22) Physical Therapy Treatment Note PT-OP-A Visit Information Start: 05/27/22 18:14 Freq: Status: Active Protocol: Document 07/06/22 14:36 [facility] (Rec: 07/06/22 15:27 [facility] [id number]) Out-Patient Physical Therapy Visit Information Visit Information Visit Type Treatment Note Visit Note 10th visit next tx, due for PN . PT will see pt on 11th visit . Visit Start Time 14:36 Visit Stop Time 15:17 Total Visit Minutes 41 Visit Number 9 Number of BREAKER TABLE WORKER Visits 2 PT-OP-B Current Condition Start: 05/27/22 18:14 Freq: Status: Active Protocol: Document 06/01/22 07:30 [facility] (Rec: 06/01/22 08:26 [facility] [id number]) Current Condition History of Current Condition Onset Date 1 year Current Complaints neck pain History of Current Condition Pt reports pain in neck has been going on for about a year but got worse in February and March this year. She saw MD who did Xray and noticed crunching w/movement and pt notes taht is painful. It is difficult for her to get to sleep at night. Most of the pain is on the left and stays on the left. No neck pain history prior to the last year . Pt had a fall in the winter where she caught her foot and went forward but that didn't inc pain. No history of shoulder issues. Pt reprots occular migraines that happen only a couple times a year. Does reprot a bella few years ago in her bedroom where she hit the edge of a chest with left ribcage and may have fractured ribs but MD chose not to do xray Prior Treatments and Tests no other treatment Xray: IMPRESSION: 1. Multilevel degenerative disc disease. 2. Multilevel facet and uncovertebral arthropathy. 3. No fracture. No acute osseous lesion. If symptoms and/or clinical suspicion for pathology persists, evaluation with MRI should be considered for further assessment. Treatment Goals Patient/Caregiver Goals Get rid of the neck pain, be able to sleep PT-OP-C Subjective Start: 05/27/22 18:14 Freq: Status: Active Protocol: Document 07/06/22 14:36 [facility] (Rec: 07/06/22 15:27 [facility] [id number]) OP-PT Subjective Patient Comments Patient Comments Pt reported the noodle/ rolled towel under neck in pillow case didn't feel good so took out. Had good night sleep last night. She stated compliant with HEP. PT-OP-F Manual Assessment Start: 05/27/22 18:14 Freq: Status: Active Protocol: Document 06/01/22 07:30 [facility] (Rec: 06/01/22 08:26 [facility] [id number]) Manual Assessments Soft Tissue Assessment Soft Tissue Mobility Assessment L side mm significantly tighter & tender Joint Mobility Assessment Joint Mobility Assessment 1st rib L elevated, fwd rounded shoulder L>R PT-OP-J Posture/Palpation/Skin Start: 05/27/22 18:14 Freq: Status: Active Protocol: Document 06/01/22 07:30 [facility] (Rec: 06/01/22 08:26 [id number] Posture Evaluation [facility] Postural Classification System Elbow Flexion Test 0 Comments Posture Comments mild kyphosis , fwd head PT-OP-K Range of Motion Start: 05/27/22 18:14 Freq: Status: Active Protocol: Document 06/01/22 07:30 [facility] (Rec: 06/01/22 08:26 [facility] [id number]) Cervical Spine Range of Motion Cervical Spine Active Degrees Flexion 45 Extension 32 Rotation Left 28 Rotation Right 42 Lateral Flexion Left 12 Lateral Flexion Right 17 Comments pain L SB, B rot PT-OP-L Special Tests Start: 05/27/22 18:14 Freq: Status: Active Protocol: Document 06/01/22 07:30 [facility] (Rec: 06/01/22 08:26 [facility] [id number]) Special Tests Cervical Spine Special Tests Vertebral Artery Test Results neg Spurling's Test Test Results neg Alar Ligament Test Results neg PT-OP-M Strength Start: 05/27/22 18:14 Freq: Status: Active Protocol: Document 06/01/22 07:30 [facility] (Rec: 06/01/22 08:26 [facility] [id number]) Shoulder Strength Shoulder Manual Muscle Testing Right Flexion 5 Normal Extension 5 Normal Abduction (C5) 4+ Good+ External Rotation 4- Good- Internal Rotation 4- Good- Left Flexion 4+ Good+ Extension 4+ Good+ Abduction (C5) 4+ Good+ External Rotation 4- Good- Internal Rotation 4- Good- Comments pain PT-OP-Q Treatments Start: 05/27/22 18:14 Freq: Status: Active Protocol: Document 07/06/22 14:36 [facility] (Rec: 07/06/22 15:27 [facility] [id number]) Therapeutic Exercises Sidelying Exercises open book Side bilateral Equipment Used pillow between knees/ankles Reps/Minutes 8 x 3 breath hold Comments cues for gentle movement Sitting Exercises stretch Sitting Exercise Name UT & LS & scalene stretch Side bilateral Reps/Minutes 5 breaths each Comments cued as needed for form Standing Exercises wall posture Standing Exercise Name 1. wall roll up w/UE ext 2. w/ scap squeeze - HEP Side bilateral Reps/Minutes 2 roll ups and hold 1 min Comments inc time and cues for set up babatunde extension Standing Exercise Name reviewed HEP Resistance Lvl1 Reps/Minutes x20 Comments w/ good chin tuck Manual Therapy Treatment Soft Tissue Mobilization SO Body Location B- SOR Mobilization Type Sustained Pressure Intensity/Depth Moderate Body Position Supine paraspinals Body Location cervical L>R Mobilization Type Rolling,Strumming Intensity/Depth Moderate Body Position Supine UT/LS Body Location L>R UT, LS, SCM, scalenes Mobilization Type Rolling Intensity/Depth Moderate Body Position Supine PT-OP-R Modalities Start: 05/27/22 18:14 Freq: Status: Active Protocol: Document 07/02/22 10:47 [facility] (Rec: 07/02/22 11:37 [facility] [id number]) Electric Stimulation Electric Stimulation Interferential Current (IFC) Body Location L UT/med scap Duration (Minutes) 10 Intensity 12>14 Patient Position Supine Combined With Heat/Cold Cold Pack PT-OP-T Assessment and Plan Start: 05/27/22 18:14 Freq: Status: Active Protocol: Document 07/06/22 14:36 SP (Rec: 07/06/22 15:27 SP [id number]) Physical Therapy Assessment Goals stability Short Term Goal (STG) Pt will be indep w/HEP STG Duration 07/20 Alf Goal (LTG) Pt will show imrpoved strength by inc MMT of UE to at leat 4 +/5 B and at least 3/5 EFT to shwo improved scap stabiltiy w /o loading the neck. LTG Duration 08/31 sleep Short Term Goal (STG) Pt will be educated on self management for pain at night and sleep positions to help dec pain at night. STG Duration 07/20/22 Cable Puller Goal (LTG) Pt will report no distruption of sleep at night d/t pain. LTG Duration 08/31 ROM Short Term Goal (STG) Pt will improve ROM inall planes by 10 deg. STG Duration 07/30 Cable Puller Goal (LTG) Pt will have rotation to at least 60 deg B w/o pain to allow improved ease with driving and flex to at least 50 deg to allow inc ease w/ reading. LTG Duration 08/31 NDI Impairment 15/50 Short Term Goal (STG) Pt will improve score to no greater than 9/50 to show improved functional ability STG Duration 07/20 Alf Goal (LTG) Pt will improve score to no greater than 3/50 to show improved functional ability LTG Duration 08/31 Assessment Summary Assessment Pt improved neutral CS with use wall chin tucks. Reviewed neck stretching post ther ex to decrease tension reported with good feedback response, provided hand outs with wording cues give in tx for assist set up and form. Reassured stretching and CP as needed for decrease pain/ tension. Physical Therapy Plan Frequency and Duration Frequency of Treatment 2x/Week Duration of treatment (weeks) 12 Plan of Care Start Date 06/01/22 Plan of Care End Date 08/31/22 Therapeutic Interventions Therapeutic Interventions Home Exercise Program,Joint Mobilizations,Manual Therapy, Neuromuscular Re-education, Patient/Caregiver Education, Self-Care/Home Management,Soft Tissue Mobilization,Taping, Therapeutic Activities, Therapeutic Exercises Modalities Cold Pack/Ice Massage,Electric Stimulation,Hot Packs, Ultrasound Next Visit Focus/Plan Next Note Type Progress Note Next Visit Plan Recheck neck stretches, wall posture. POC: Add CS rotation exercise manual to upper tspine, manual to cervical mm
--- NOTE | 2022-07-20 12:45 | PT.OTN ---
Current Diagnoses Cervicalgia (07/20/22) Abnormal posture (07/20/22) Physical Therapy Treatment Note PT-OP-A Visit Information Start: 05/27/22 18:14 Freq: Status: Active Protocol: Document 07/20/22 10:35 NBM (Rec: 07/20/22 11:22 NB [id number]) Out-Patient Physical Therapy Visit Information Visit Information Visit Type Treatment Note Visit Start Time 10:32 Visit Stop Time 11:12 Total Visit Minutes 40 Visit Number 10 Number of STOCKROOM INVENTORY CLERK Visits 3 PT-OP-B Current Condition Start: 05/27/22 18:14 Freq: Status: Active Protocol: Document 06/01/22 07:30 LR (Rec: 06/01/22 08:26 [facility] [id number]) Current Condition History of Current Condition Onset Date 1 year Current Complaints neck pain History of Current Condition Pt reports pain in neck has been going on for about a year but got worse in February and March this year. She saw MD who did Xray and noticed crunching w/movement and pt notes taht is painful. It is difficult for her to get to sleep at night. Most of the pain is on the left and stays on the left. No neck pain history prior to the last year . Pt had a fall in the winter where she caught her foot and went forward but that didn't inc pain. No history of shoulder issues. Pt reprots occular migraines that happen only a couple times a year. Does reprot a bella few years ago in her bedroom where she hit the edge of a chest with left ribcage and may have fractured ribs but MD chose not to do xray Prior Treatments and Tests no other treatment Xray: IMPRESSION: 1. Multilevel degenerative disc disease. 2. Multilevel facet and uncovertebral arthropathy. 3. No fracture. No acute osseous lesion. If symptoms and/or clinical suspicion for pathology persists, evaluation with MRI should be considered for further assessment. Treatment Goals Patient/Caregiver Goals Get rid of the neck pain, be able to sleep PT-OP-C Subjective Start: 05/27/22 18:14 Freq: Status: Active Protocol: Document 07/20/22 10:35 NBM (Rec: 07/20/22 11:22 NBM [id number]) OP-PT Subjective Patient Comments Patient Comments Pt is sore on left side of neck. PT-OP-F Manual Assessment Start: 05/27/22 18:14 Freq: Status: Active Protocol: Document 06/01/22 07:30 [facility] (Rec: 06/01/22 08:26 [facility] [id number]) Manual Assessments Soft Tissue Assessment Soft Tissue Mobility Assessment L side mm significantly tighter & tender Joint Mobility Assessment Joint Mobility Assessment 1st rib L elevated, fwd rounded shoulder L>R PT-OP-J Posture/Palpation/Skin Start: 05/27/22 18:14 Freq: Status: Active Protocol: Document 06/01/22 07:30 [facility] (Rec: 06/01/22 08:26 [facility] [id number]) Posture Evaluation [facility] Postural Classification System Elbow Flexion Test 0 Comments Posture Comments mild kyphosis , fwd head PT-OP-K Range of Motion Start: 05/27/22 18:14 Freq: Status: Active Protocol: Document 06/01/22 07:30 [facility] (Rec: 06/01/22 08:26 [facility] [id number]) Cervical Spine Range of Motion Cervical Spine Active Degrees Flexion 45 Extension 32 Rotation Left 28 Rotation Right 42 Lateral Flexion Left 12 Lateral Flexion Right 17 Comments pain L SB, B rot PT-OP-L Special Tests Start: 05/27/22 18:14 Freq: Status: Active Protocol: Document 06/01/22 07:30 [facility] (Rec: 06/01/22 08:26 [facility] [id number]) Special Tests Cervical Spine Special Tests Vertebral Artery Test Results neg Spurling's Test Test Results neg Alar Ligament Test Results neg PT-OP-M Strength Start: 05/27/22 18:14 Freq: Status: Active Protocol: Document 06/01/22 07:30 [facility] (Rec: 06/01/22 08:26 [facility] [id number]) Shoulder Strength Shoulder Manual Muscle Testing Right Flexion 5 Normal Extension 5 Normal Abduction (C5) 4+ Good+ External Rotation 4- Good- Internal Rotation 4- Good- Left Flexion 4+ Good+ Extension 4+ Good+ Abduction (C5) 4+ Good+ External Rotation 4- Good- Internal Rotation 4- Good- Comments pain PT-OP-Q Treatments Start: 05/27/22 18:14 Freq: Status: Active Protocol: Document 07/20/22 10:35 NBM (Rec: 07/20/22 11:22 NBM [id number]) Therapeutic Exercises Standing Exercises wall posture Standing Exercise Name 1. wall roll up w/UE ext 2. w/ scap squeeze - HEP Side bilateral Reps/Minutes 2 roll ups and hold 1 min Comments inc time and cues for set up babatunde extension Resistance Lvl2 Reps/Minutes x20 Comments w/ chin tuck, core Chin tucks Standing Exercise Name discussed - when on wall- working on neck position Reps/Minutes 5 Comments pt not performing d/t pain row Side bilateral Equipment Used lvl 1>2 Reps/Minutes 15 Comments cues for form chin tuck, core Self-Care/Home Management Treatment Education Patient Education Home Exercise Program,Posture Other Education Isometric chin tuck ex w/ towel added to HEP- HO w/ cues for chin tuck and TrA activation for upright posture and core stability given. PT-OP-R Modalities Start: 05/27/22 18:14 Freq: Status: Active Protocol: Document 07/02/22 10:47 NBM (Rec: 07/02/22 11:37 NBM [id number]) Electric Stimulation Electric Stimulation Interferential Current (IFC) Body Location L UT/med scap Duration (Minutes) 10 Intensity 12>14 Patient Position Supine Combined With Heat/Cold Cold Pack PT-OP-T Assessment and Plan Start: 05/27/22 18:14 Freq: Status: Active Protocol: Document 07/20/22 10:35 NBM (Rec: 07/20/22 11:22 NBM [id number]) Physical Therapy Assessment Goals stability Short Term Goal (STG) Pt will be indep w/HEP STG Duration 07/20 Patrol Driver Goal (LTG) Pt will show imrpoved strength by inc MMT of UE to at leat 4 +/5 B and at least 3/5 EFT to shwo improved scap stabiltiy w /o loading the neck. LTG Duration 08/31 sleep Short Term Goal (STG) Pt will be educated on self management for pain at night and sleep positions to help dec pain at night. 07/20/22: Pt trying one pillow instead of two. Better per pt but still nights where she can 't fall asleep due to pain; once asleep stays asleep. STG Duration 07/20/22 Patrol Driver Goal (LTG) Pt will report no distruption of sleep at night d/t pain. LTG Duration 08/31 ROM Short Term Goal (STG) Pt will improve ROM inall planes by 10 deg. STG Duration 07/30 Patrol Driver Goal (LTG) Pt will have rotation to at least 60 deg B w/o pain to allow improved ease with driving and flex to at least 50 deg to allow inc ease w/ reading. 07/20/22: Pt bought youngblood and will try it to help w/ neck pain. LTG Duration 08/31 NDI Impairment 15/50 Short Term Goal (STG) Pt will improve score to no greater than 9/50 to show improved functional ability STG Duration 07/20 Shelter Goal (LTG) Pt will improve score to no greater than 3/50 to show improved functional ability LTG Duration 08/31 Assessment Summary Assessment Treatment focus on posture and core stability. Pt requires cues for upright posture, chin tuck and Transverse abdominus activation. They tolerate increased resisted rows from Lvl 1 to Lvl 2 Tb. Isometric chin tuck ex w/ towel added to HEP- HO w/ cues for chin tuck and TrA activation for upright posture and core stability given. STG regarding sleep is progressing as pt reports they are trying one pillow instead of two and are sleeping better overall, but there are still nights where she can't fall asleep due to pain; once asleep she does stay asleep rather than waking from pain. Physical Therapy Plan Frequency and Duration Frequency of Treatment 2x/Week Duration of treatment (weeks) 12 Plan of Care Start Date 06/01/22 Plan of Care End Date 08/31/22 Therapeutic Interventions Therapeutic Interventions Home Exercise Program,Joint Mobilizations,Manual Therapy, Neuromuscular Re-education, Patient/Caregiver Education, Self-Care/Home Management,Soft Tissue Mobilization,Taping, Therapeutic Activities, Therapeutic Exercises Modalities Cold Pack/Ice Massage,Electric Stimulation,Hot Packs, Ultrasound Next Visit Focus/Plan Next Note Type Progress Note Next Visit Plan Recheck neck stretches, wall posture. POC: Add CS rotation exercise manual to upper tspine, manual to cervical mm
--- NOTE | 2022-07-29 12:21 | PT.OTN ---
Current Diagnoses Cervicalgia (07/29/22) Abnormal posture (07/29/22) Physical Therapy Treatment Note PT-OP-A Visit Information Start: 05/27/22 18:14 Freq: Status: Active Protocol: Document 07/29/22 10:32 [facility] (Rec: 07/29/22 12:21 [facility] [id number]) Out-Patient Physical Therapy Visit Information Visit Information Visit Type Progress Note Visit Note 09/28 Visit Start Time 10:32 Visit Stop Time 11:30 Total Visit Minutes 58 Visit Number 11 Number of MALLET CUTTER Visits 0 PT-OP-B Current Condition Start: 05/27/22 18:14 Freq: Status: Active Protocol: Document 06/01/22 07:30 [facility] (Rec: 06/01/22 08:26 [facility] [id number]) Current Condition History of Current Condition Onset Date 1 year Current Complaints neck pain History of Current Condition Pt reports pain in neck has been going on for about a year but got worse in February and March this year. She saw MD who did Xray and noticed crunching w/movement and pt notes taht is painful. It is difficult for her to get to sleep at night. Most of the pain is on the left and stays on the left. No neck pain history prior to the last year . Pt had a fall in the winter where she caught her foot and went forward but that didn't inc pain. No history of shoulder issues. Pt reprots occular migraines that happen only a couple times a year. Does reprot a bella few years ago in her bedroom where she hit the edge of a chest with left ribcage and may have fractured ribs but MD chose not to do xray Prior Treatments and Tests no other treatment Xray: IMPRESSION: 1. Multilevel degenerative disc disease. 2. Multilevel facet and uncovertebral arthropathy. 3. No fracture. No acute osseous lesion. If symptoms and/or clinical suspicion for pathology persists, evaluation with MRI should be considered for further assessment. Treatment Goals Patient/Caregiver Goals Get rid of the neck pain, be able to sleep PT-OP-C Subjective Start: 05/27/22 18:14 Freq: Status: Active Protocol: Document 07/29/22 10:32 [facility] (Rec: 07/29/22 12:21 [facility] [id number]) OP-PT Subjective Patient Comments Patient Comments pt reports L side of neck still very sore. Notes she has been able to carry 2 bags of flower in from the car without pain and is sleepign more w/o pain. Patient Questionnaires Neck Disability Index NDI Score 14/50 PT-OP-F Manual Assessment Start: 05/27/22 18:14 Freq: Status: Active Protocol: Document 06/01/22 07:30 [facility] (Rec: 06/01/22 08:26 [facility] [id number]) Manual Assessments Soft Tissue Assessment Soft Tissue Mobility Assessment L side mm significantly tighter & tender Joint Mobility Assessment Joint Mobility Assessment 1st rib L elevated, fwd rounded shoulder L>R PT-OP-J Posture/Palpation/Skin Start: 05/27/22 18:14 Freq: Status: Active Protocol: Document 06/01/22 07:30 [facility] (Rec[facility]/01/22 08[facility]26 [id number] Posture Evaluation [facility] Postural Classification System Elbow Flexion Test 0 Comments Posture Comments mild kyphosis , fwd head PT-OP-K Range of Motion Start: 05/27/22 18:14 Freq: Status: Active Protocol: Document 07/29/22 10:32 [facility] (Rec: 07/29/22 12:21 [facility] [id number]) Cervical Spine Range of Motion Cervical Spine Active Degrees Flexion 54 Extension 42 Rotation Left 46 Rotation Right 45 Lateral Flexion Left 22 Lateral Flexion Right 25 Comments pain L>R SB, B rot PT-OP-L Special Tests Start: 05/27/22 18:14 Freq: Status: Active Protocol: Document 06/01/22 07:30 [facility] (Rec: 06/01/22 08:26 [facility] [id number]) Special Tests Cervical Spine Special Tests Vertebral Artery Test Results neg Spurling's Test Test Results neg Alar Ligament Test Results neg PT-OP-M Strength Start: 05/27/22 18:14 Freq: Status: Active Protocol: Document 07/29/22 10:32 [facility] (Rec: 07/29/22 12:21 [facility] [id number]) Shoulder Strength Shoulder Manual Muscle Testing Right Flexion 5 Normal Extension 5 Normal Abduction (C5) 5 Normal External Rotation 5 Normal Internal Rotation 5 Normal Left Flexion 5 Normal Extension 5 Normal Abduction (C5) 5 Normal External Rotation 4+ Good+ Internal Rotation 5 Normal Comments pain PT-OP-Q Treatments Start: 05/27/22 18:14 Freq: Status: Active Protocol: Document 07/29/22 10:32 [facility] (Rec: 07/29/22 12:21 [facility] [id number]) Therapeutic Exercises Sitting Exercises rotation Sitting Exercise Name cervical rot then thoracic rot hold Side bilateral Reps/Minutes 15 sec x2 stretch Sitting Exercise Name UT & LS & scalene stretch Side bilateral Reps/Minutes 5 breaths each Comments cued as needed for form Manual Therapy Treatment Soft Tissue Mobilization SO Body Location B- SOR Mobilization Type Sustained Pressure Intensity/Depth Moderate Body Position Supine UT/LS Body Location L>R UT, LS, SCM, scalenes, post serratus Mobilization Type Rolling Intensity/Depth Moderate Body Position Supine Joint Mobilizations cervical Comments C1 UAP Self-Care/Home Management Treatment Education Patient Education Home Exercise Program,Posture Other Education edu re: sleeping posture and discussed how to set up in s/l best and supien best. Edu for use of Tens up to 15 min at a time and edu taht she can walk around with it and use it frequently if it helps PT-OP-R Modalities Start: 05/27/22 18:14 Freq: Status: Active Protocol: Document 07/29/22 10:32 [facility] (Rec: 07/29/22 12:21 [facility] [id number]) Electric Stimulation Electric Stimulation Interferential Current (IFC) Body Location L UT/med scap Duration (Minutes) 10 Patient Position Supine Combined With Heat/Cold Cold Pack PT-OP-T Assessment and Plan Start: 05/27/22 18:14 Freq: Status: Active Protocol: Document 07/29/22 10:32 [facility] (Rec: 07/29/22 12:21 [facility] [id number]) Physical Therapy Assessment Goals stability Short Term Goal (STG) Pt will be indep w/HEP STG Duration achieved-advancing as able Dimension Quarry Supervisor Goal (LTG) Pt will show imrpoved strength by inc MMT of UE to at leat 4 +/5 B and at least 3/5 EFT to shwo improved scap stabiltiy w /o loading the neck. 07/29-improved LTG Duration 08/31 sleep Short Term Goal (STG) Pt will be educated on self management for pain at night and sleep positions to help dec pain at night. 07/20/22: Pt trying one pillow instead of two. Better per pt but still nights where she can 't fall asleep due to pain; once asleep stays asleep. STG Duration achieved Fdc Goal (LTG) Pt will report no distruption of sleep at night d/t pain. 07/29-has some nights LTG Duration 08/31 ROM Short Term Goal (STG) Pt will improve ROM inall planes by 10 deg. 07/29-achieved all except rot R STG Duration 07/30 Dimension Quarry Supervisor Goal (LTG) Pt will have rotation to at least 60 deg B w/o pain to allow improved ease with driving and flex to at least 50 deg to allow inc ease w/ reading. 07/20/22: Pt bought youngblood and will try it to help w/ neck pain. LTG Duration 08/31 NDI Impairment 15 Short Term Goal (STG) Pt will improve score to no greater than 9/50 to show improved functional ability 07/29-14 STG Duration 07/20 Dimension Quarry Supervisor Goal (LTG) Pt will improve score to no greater than 3/50 to show improved functional ability LTG Duration 08/31 Assessment Summary Assessment Pt is making progress w/PT and is improving w/ROM and strength but still does have pain in L side w/resistance. She is able to sleep better now. Cont PT to cont to dec pain level. Physical Therapy Plan Frequency and Duration Frequency of Treatment 2x/Week Duration of treatment (weeks) 12 Plan of Care Start Date 06/01/22 Plan of Care End Date 08/31/22 Therapeutic Interventions Therapeutic Interventions Home Exercise Program,Joint Mobilizations,Manual Therapy, Neuromuscular Re-education, Patient/Caregiver Education, Self-Care/Home Management,Soft Tissue Mobilization,Taping, Therapeutic Activities, Therapeutic Exercises Modalities Cold Pack/Ice Massage,Electric Stimulation,Hot Packs, Ultrasound Next Visit Focus/Plan Next Note Type Treatment Note Next Visit Plan manual to upper tspine, manual to cervical mm
--- NOTE | 2022-08-02 10:21 | PT.OTN ---
Current Diagnoses Cervicalgia (08/02/22) Abnormal posture (08/02/22) Physical Therapy Treatment Note PT-OP-A Visit Information Start: 05/27/22 18:14 Freq: Status: Active Protocol: Document 08/02/22 09:07 NBM (Rec: 08/02/22 10:20 NB [id number]) Out-Patient Physical Therapy Visit Information Visit Information Visit Type Treatment Note Visit Note 10/29 Visit Start Time 09:07 Visit Stop Time 09:50 Total Visit Minutes 43 Visit Number 12 Number of CLAY DRY PRESS HELPER Visits 1 PT-OP-B Current Condition Start: 05/27/22 18:14 Freq: Status: Active Protocol: Document 06/01/22 07:30 [facility] (Rec: 06/01/22 08:26 [facility] [id number]) Current Condition History of Current Condition Onset Date 1 year Current Complaints neck pain History of Current Condition Pt reports pain in neck has been going on for about a year but got worse in February and March this year. She saw MD who did Xray and noticed crunching w/movement and pt notes taht is painful. It is difficult for her to get to sleep at night. Most of the pain is on the left and stays on the left. No neck pain history prior to the last year . Pt had a fall in the winter where she caught her foot and went forward but that didn't inc pain. No history of shoulder issues. Pt reprots occular migraines that happen only a couple times a year. Does reprot a bella few years ago in her bedroom where she hit the edge of a chest with left ribcage and may have fractured ribs but MD chose not to do xray Prior Treatments and Tests no other treatment Xray: IMPRESSION: 1. Multilevel degenerative disc disease. 2. Multilevel facet and uncovertebral arthropathy. 3. No fracture. No acute osseous lesion. If symptoms and/or clinical suspicion for pathology persists, evaluation with MRI should be considered for further assessment. Treatment Goals Patient/Caregiver Goals Get rid of the neck pain, be able to sleep PT-OP-C Subjective Start: 05/27/22 18:14 Freq: Status: Active Protocol: Document 08/02/22 09:07 NBM (Rec: 08/02/22 10:20 NBM [id number]) OP-PT Subjective Patient Comments Patient Comments Pt reports L side of neck is sore this morning. She did exercises last night before bed. She is tossing all night and wakes up with soreness. She's making sure her pillow is abover her shoulders. She has been using the TENS unit at home and thinks it helps. PT-OP-F Manual Assessment Start: 05/27/22 18:14 Freq: Status: Active Protocol: Document 06/01/22 07:30 [facility] (Rec: 06/01/22 08:26 [facility] [id number]) Manual Assessments Soft Tissue Assessment Soft Tissue Mobility Assessment L side mm significantly tighter & tender Joint Mobility Assessment Joint Mobility Assessment 1st rib L elevated, fwd rounded shoulder L>R PT-OP-J Posture/Palpation/Skin Start: 05/27/22 18:14 Freq: Status: Active Protocol: Document 06/01/22 07:30 [facility] (Rec: 06/01/22 08:26 [facility] [id number]) Posture Evaluation [facility] Postural Classification System Elbow Flexion Test 0 Comments Posture Comments mild kyphosis , fwd head PT-OP-K Range of Motion Start: 05/27/22 18:14 Freq: Status: Active Protocol: Document 07/29/22 10:32 [facility] (Rec: 07/29/22 12:21 [facility] [id number]) Cervical Spine Range of Motion Cervical Spine Active Degrees Flexion 54 Extension 42 Rotation Left 46 Rotation Right 45 Lateral Flexion Left 22 Lateral Flexion Right 25 Comments pain L>R SB, B rot PT-OP-L Special Tests Start: 05/27/22 18:14 Freq: Status: Active Protocol: Document 06/01/22 07:30 [facility] (Rec: 06/01/22 08:26 [facility] [id number]) Special Tests Cervical Spine Special Tests Vertebral Artery Test Results neg Spurling's Test Test Results neg Alar Ligament Test Results neg PT-OP-M Strength Start: 05/27/22 18:14 Freq: Status: Active Protocol: Document 07/29/22 10:32 [facility] (Rec: 07/29/22 12:21 [facility] [id number]) Shoulder Strength Shoulder Manual Muscle Testing Right Flexion 5 Normal Extension 5 Normal Abduction (C5) 5 Normal External Rotation 5 Normal Internal Rotation 5 Normal Left Flexion 5 Normal Extension 5 Normal Abduction (C5) 5 Normal External Rotation 4+ Good+ Internal Rotation 5 Normal Comments pain PT-OP-Q Treatments Start: 05/27/22 18:14 Freq: Status: Active Protocol: Document 08/02/22 09:07 [facility] (Rec: 08/02/22 10:20 [facility] [id number]) Therapeutic Exercises Sitting Exercises rotation Sitting Exercise Name cervical rot then thoracic rot hold Side bilateral Reps/Minutes 15 sec x2 Comments HEP stretch Sitting Exercise Name lower cervical extensor, LS & UT stretch - HEP Side bilateral Reps/Minutes 5 breaths each Comments chin tuck/posture focus for each Standing Exercises Chin tucks Standing Exercise Name sitting, with stretches - HEP Comments w/ overpressure Manual Therapy Treatment Soft Tissue Mobilization SO Body Location B- SOR Mobilization Type Sustained Pressure Intensity/Depth Moderate Body Position Hooklying paraspinals Body Location cervical L>R Mobilization Type Rolling,Strumming Intensity/Depth Moderate Body Position Hooklying UT/LS Body Location L>R UT, LS, SCM, scalenes, post serratus Mobilization Type Rolling Intensity/Depth Moderate Body Position Hooklying Self-Care/Home Management Treatment Education Patient Education Home Exercise Program,Posture Other Education Added to HEP: Chin tuck w/ overpressure, lower cervical extension stretch, LS stretch, UT stretch, Cervical rotation w/ overpressure PT-OP-R Modalities Start: 05/27/22 18:14 Freq: Status: Active Protocol: Document 07/29/22 10:32 [facility] (Rec: 07/29/22 12:21 [facility] [id number]) Electric Stimulation Electric Stimulation Interferential Current (IFC) Body Location L UT/med scap Duration (Minutes) 10 Patient Position Supine Combined With Heat/Cold Cold Pack PT-OP-T Assessment and Plan Start: 05/27/22 18:14 Freq: Status: Active Protocol: Document 08/02/22 09:07 [facility] (Rec: 08/02/22 10:20 [facility] [id number]) Physical Therapy Assessment Goals stability Short Term Goal (STG) Pt will be indep w/HEP STG Duration achieved-advancing as able High School Librarian Goal (LTG) Pt will show imrpoved strength by inc MMT of UE to at leat 4 +/5 B and at least 3/5 EFT to shwo improved scap stabiltiy w /o loading the neck. 07/29-improved LTG Duration 13 sleep Short Term Goal (STG) Pt will be educated on self management for pain at night and sleep positions to help dec pain at night. 07/20/22: Pt trying one pillow instead of two. Better per pt but still nights where she can 't fall asleep due to pain; once asleep stays asleep. STG Duration achieved High School Librarian Goal (LTG) Pt will report no distruption of sleep at night d/t pain. 07/29-has some nights LTG Duration 08/31 ROM Short Term Goal (STG) Pt will improve ROM inall planes by 10 deg. 07/29-achieved all except rot R STG Duration 07/30 Custodial Goal (LTG) Pt will have rotation to at least 60 deg B w/o pain to allow improved ease with driving and flex to at least 50 deg to allow inc ease w/ reading. 07/20/22: Pt bought youngblood and will try it to help w/ neck pain. LTG Duration 08/31 NDI Impairment 15/50 Short Term Goal (STG) Pt will improve score to no greater than 9/50 to show improved functional ability 07/29-14/50 STG Duration 07/20 Custodial Goal (LTG) Pt will improve score to no greater than 3/50 to show improved functional ability LTG Duration 08/31 Assessment Summary Assessment Treatment focus on chin tuck, cervical stretching and manual therapy for pain management. Palpable tightness and upper body tension visibly decreases after manual therapy - pt has good feedback response. Pt shows good self-awareness of bringing shoulders away from ears and requires no cues for breathholding this visit. Added to HEP: Chin tuck w/ overpressure, lower cervical extension stretch, LS stretch, UT stretch, Cervical rotation w/ overpressure - HO given. Physical Therapy Plan Next Visit Focus/Plan Next Note Type Treatment Note Next Visit Plan Reassess exercises done before bed. Check cervical rotation exercise. manual to upper tspine, manual to cervical mm
--- NOTE | 2022-08-04 11:48 | PT.OTN ---
Current Diagnoses Cervicalgia (08/04/22) Abnormal posture (08/04/22) Physical Therapy Treatment Note PT-OP-A Visit Information Start: 05/27/22 18:14 Freq: Status: Active Protocol: Document 08/04/22 09:50 [facility] (Rec: 08/04/22 11:48 [facility] [id number]) Out-Patient Physical Therapy Visit Information Visit Information Visit Type Treatment Note Visit Note 11/26 Visit Start Time 09:50 Visit Stop Time 10:31 Total Visit Minutes 41 Visit Number 13 Number of UNIT TENDER Visits 0 PT-OP-B Current Condition Start: 05/27/22 18:14 Freq: Status: Active Protocol: Document 06/01/22 07:30 [facility] (Rec: 06/01/22 08:26 [facility] [id number]) Current Condition History of Current Condition Onset Date 1 year Current Complaints neck pain History of Current Condition Pt reports pain in neck has been going on for about a year but got worse in February and March this year. She saw MD who did Xray and noticed crunching w/movement and pt notes taht is painful. It is difficult for her to get to sleep at night. Most of the pain is on the left and stays on the left. No neck pain history prior to the last year . Pt had a fall in the winter where she caught her foot and went forward but that didn't inc pain. No history of shoulder issues. Pt reprots occular migraines that happen only a couple times a year. Does reprot a bella few years ago in her bedroom where she hit the edge of a chest with left ribcage and may have fractured ribs but MD chose not to do xray Prior Treatments and Tests no other treatment Xray: IMPRESSION: 1. Multilevel degenerative disc disease. 2. Multilevel facet and uncovertebral arthropathy. 3. No fracture. No acute osseous lesion. If symptoms and/or clinical suspicion for pathology persists, evaluation with MRI should be considered for further assessment. Treatment Goals Patient/Caregiver Goals Get rid of the neck pain, be able to sleep PT-OP-C Subjective Start: 05/27/22 18:14 Freq: Status: Active Protocol: Document 08/04/22 09:50 [facility] (Rec: 08/04/22 11:48 [facility] [id number]) OP-PT Subjective Patient Comments Patient Comments Pt reprots she does notice she turns her head more PT-OP-F Manual Assessment Start: 05/27/22 18:14 Freq: Status: Active Protocol: Document 06/01/22 07:30 [facility] (Rec[facility] 06/01/22 08[id number] Manual Assessments Soft Tissue Assessment Soft Tissue Mobility Assessment L side mm significantly tighter & tender Joint Mobility Assessment Joint Mobility Assessment 1st rib L elevated, fwd rounded shoulder L>R PT-OP-J Posture/Palpation/Skin Start: 05/27/22 18:14 Freq: Status: Active Protocol: Document 06/01/22 07:30 [facility] (Rec: 06/01/22 08:26 [facility] [id number]) Posture Evaluation [facility] Postural Classification System Elbow Flexion Test 0 Comments Posture Comments mild kyphosis , fwd head PT-OP-K Range of Motion Start: 05/27/22 18:14 Freq: Status: Active Protocol: Document 07/29/22 10:32 [facility] (Rec: 07/29/22 12:21 [facility] [id number]) Cervical Spine Range of Motion Cervical Spine Active Degrees Flexion 54 Extension 42 Rotation Left 46 Rotation Right 45 Lateral Flexion Left 22 Lateral Flexion Right 25 Comments pain L>R SB, B rot PT-OP-L Special Tests Start: 05/27/22 18:14 Freq: Status: Active Protocol: Document 06/01/22 07:30 [facility] (Rec: 06/01/22 08:26 [facility] [id number]) Special Tests Cervical Spine Special Tests Vertebral Artery Test Results neg Spurling's Test Test Results neg Alar Ligament Test Results neg PT-OP-M Strength Start: 05/27/22 18:14 Freq: Status: Active Protocol: Document 07/29/22 10:32 [facility] (Rec: 07/29/22 12:21 [facility] [id number]) Shoulder Strength Shoulder Manual Muscle Testing Right Flexion 5 Normal Extension 5 Normal Abduction (C5) 5 Normal External Rotation 5 Normal Internal Rotation 5 Normal Left Flexion 5 Normal Extension 5 Normal Abduction (C5) 5 Normal External Rotation 4+ Good+ Internal Rotation 5 Normal Comments pain PT-OP-Q Treatments Start: 05/27/22 18:14 Freq: Status: Active Protocol: Document 08/04/22 09:50 [facility] (Rec: 08/04/22 11:48 [facility] [id number]) Manual Therapy Treatment Soft Tissue Mobilization median n pathway Body Location L starting at n groove at neck and [place] path of median n down arm Comments FM w/wrist ext-improved med n mobility w/test paraspinals Body Location cervical L>R Mobilization Type Rolling,Strumming Intensity/Depth Moderate Body Position Sidelying Comments FM w/post dep UT/LS Body Location L>R UT, LS, SCM, scalenes Mobilization Type Rolling Intensity/Depth Moderate Body Position Sidelying Comments w/post dep c/r Joint Mobilizations AC Joint L gapping FM PT-OP-R Modalities Start: 05/27/22 18:14 Freq: Status: Active Protocol: Document 07/29/22 10:32 [facility] (Rec: 07/29/22 12:21 [facility] [id number]) Electric Stimulation Electric Stimulation Interferential Current (IFC) Body Location L UT/med scap Duration (Minutes) 10 Patient Position Supine Combined With Heat/Cold Cold Pack PT-OP-T Assessment and Plan Start: 05/27/22 18:14 Freq: Status: Active Protocol: Document 08/04/22 09:50 [facility] (Rec: 08/04/22 11:48 [facility] [id number]) Physical Therapy Assessment Goals stability Short Term Goal (STG) Pt will be indep w/HEP STG Duration achieved-advancing as able [facility] Goal (LTG) Pt will show imrpoved strength by inc MMT of UE to at leat 4 +/5 B and at least 3/5 EFT to shwo improved scap stabiltiy w /o loading the neck. 07/29-improved LTG Duration 08/31 sleep Short Term Goal (STG) Pt will be educated on self management for pain at night and sleep positions to help dec pain at night. 07/20/22: Pt trying one pillow instead of two. Better per pt but still nights where she can 't fall asleep due to pain; once asleep stays asleep. STG Duration achieved Thimble Press Operator Goal (LTG) Pt will report no distruption of sleep at night d/t pain. 07/29-has some nights LTG Duration 08/31 ROM Short Term Goal (STG) Pt will improve ROM inall planes by 10 deg. 07/29-achieved all except rot R STG Duration 07/30 [facility] Goal (LTG) Pt will have rotation to at least 60 deg B w/o pain to allow improved ease with driving and flex to at least 50 deg to allow inc ease w/ reading. 07/20/22: Pt bought youngblood and will try it to help w/ neck pain. LTG Duration 08/31 NDI Impairment 15/50 Short Term Goal (STG) Pt will improve score to no greater than 9/50 to show improved functional ability 07/29-14 STG Duration 07/20 Thimble Press Operator Goal (LTG) Pt will improve score to no greater than 3/50 to show improved functional ability LTG Duration 08/31 Assessment Summary Assessment Dec tension w/neural tension work. She had imrpoved abiltiyt to depress scap after manual treatment. Physical Therapy Plan Frequency and Duration Frequency of Treatment 2x/Week Duration of treatment (weeks) 12 Plan of Care Start Date 06/01/22 Plan of Care End Date 08/31/22 Next Visit Focus/Plan Next Note Type Treatment Note Next Visit Plan check exercises and dec number for home. Improve L rotation & SB ability
--- NOTE | 2022-08-09 14:57 | PT.OTN ---
Current Diagnoses Cervicalgia (08/09/22) Abnormal posture (08/09/22) Physical Therapy Treatment Note PT-OP-A Visit Information Start: 05/27/22 18:14 Freq: Status: Active Protocol: Document 08/09/22 13:51 [facility] (Rec: 08/09/22 14:57 [facility] [id number]) Out-Patient Physical Therapy Visit Information Visit Information Visit Type Treatment Note Visit Note 12/27 Visit Start Time 13:50 Visit Stop Time 14:43 Total Visit Minutes 53 Visit Number 14 Number of INDUSTRIAL CHEMICALS SUPERVISOR Visits 0 PT-OP-B Current Condition Start: 05/27/22 18:14 Freq: Status: Active Protocol: Document 06/01/22 07:30 [facility] (Rec: 06/01/22 08:26 [facility] [id number]) Current Condition History of Current Condition Onset Date 1 year Current Complaints neck pain History of Current Condition Pt reports pain in neck has been going on for about a year but got worse in February and March this year. She saw MD who did Xray and noticed crunching w/movement and pt notes taht is painful. It is difficult for her to get to sleep at night. Most of the pain is on the left and stays on the left. No neck pain history prior to the last year . Pt had a fall in the winter where she caught her foot and went forward but that didn't inc pain. No history of shoulder issues. Pt reprots occular migraines that happen only a couple times a year. Does reprot a bella few years ago in her bedroom where she hit the edge of a chest with left ribcage and may have fractured ribs but MD chose not to do xray Prior Treatments and Tests no other treatment Xray: IMPRESSION: 1. Multilevel degenerative disc disease. 2. Multilevel facet and uncovertebral arthropathy. 3. No fracture. No acute osseous lesion. If symptoms and/or clinical suspicion for pathology persists, evaluation with MRI should be considered for further assessment. Treatment Goals Patient/Caregiver Goals Get rid of the neck pain, be able to sleep PT-OP-C Subjective Start: 05/27/22 18:14 Freq: Status: Active Protocol: Document 08/09/22 13:51 [facility] (Rec: 08/09/22 14:57 [facility] [id number]) OP-PT Subjective Patient Comments Patient Comments pt reports waking up a bit sore today. she thinks she is going to try massage therapy too. PT-OP-F Manual Assessment Start: 05/27/22 18:14 Freq: Status: Active Protocol: Document 06/01/22 07:30 [facility] (Rec: 06/01/22 08:26 [facility] [id number]) Manual Assessments Soft Tissue Assessment Soft Tissue Mobility Assessment L side mm significantly tighter & tender Joint Mobility Assessment Joint Mobility Assessment 1st rib L elevated, fwd rounded shoulder L>R PT-OP-J Posture/Palpation/Skin Start: 05/27/22 18:14 Freq: Status: Active Protocol: Document 06/01/22 07:30 [facility] (Rec: 06/01/22 08:26 [facility] [id number]) Posture Evaluation [facility] Postural Classification System Elbow Flexion Test 0 Comments Posture Comments mild kyphosis , fwd head PT-OP-K Range of Motion Start: 05/27/22 18:14 Freq: Status: Active Protocol: Document 07/29/22 10:32 [facility] (Rec: 07/29/22 12:21 [facility] [id number]) Cervical Spine Range of Motion Cervical Spine Active Degrees Flexion 54 Extension 42 Rotation Left 46 Rotation Right 45 Lateral Flexion Left 22 Lateral Flexion Right 25 Comments pain L>R SB, B rot PT-OP-L Special Tests Start: 05/27/22 18:14 Freq: Status: Active Protocol: Document 06/01/22 07:30 [facility] (Rec: 06/01/22 08:26 [facility] [id number]) Special Tests Cervical Spine Special Tests Vertebral Artery Test Results neg Spurling's Test Test Results neg Alar Ligament Test Results neg PT-OP-M Strength Start: 05/27/22 18:14 Freq: Status: Active Protocol: Document 07/29/22 10:32 [facility] (Rec: 07/29/22 12:21 [facility] [id number]) Shoulder Strength Shoulder Manual Muscle Testing Right Flexion 5 Normal Extension 5 Normal Abduction (C5) 5 Normal External Rotation 5 Normal Internal Rotation 5 Normal Left Flexion 5 Normal Extension 5 Normal Abduction (C5) 5 Normal External Rotation 4+ Good+ Internal Rotation 5 Normal Comments pain PT-OP-Q Treatments Start: 05/27/22 18:14 Freq: Status: Active Protocol: Document 08/09/22 13:51 [facility] (Rec: 08/09/22 14:57 [facility] [id number]) Manual Therapy Treatment Soft Tissue Mobilization SO Body Location B- SOR Mobilization Type Sustained Pressure Intensity/Depth Moderate Body Position Hooklying UT/LS Body Location L>R UT, LS, SCM, scalenes Mobilization Type Rolling Intensity/Depth Moderate Body Position Sidelying Comments w/post dep c/r Joint Mobilizations ribs Comments L 1 AP & caudal L 2nd caudal FM thoracic Comments L UPA T1-5 R transverse T2-3 PA T1-3 FM cervical Comments transverse R C4, C7 FM PT-OP-R Modalities Start: 05/27/22 18:14 Freq: Status: Active Protocol: Document 08/09/22 13:51 [facility] (Rec: 08/09/22 14:57 [facility] [id number]) Electric Stimulation Electric Stimulation Interferential Current (IFC) Body Location L UT/med scap Duration (Minutes) 12 Patient Position Supine Combined With Heat/Cold Cold Pack PT-OP-T Assessment and Plan Start: 05/27/22 18:14 Freq: Status: Active Protocol: Document 08/09/22 13:51 [facility] (Rec: 08/09/22 14:57 [facility] [id number]) Physical Therapy Assessment Goals stability Short Term Goal (STG) Pt will be indep w/HEP STG Duration achieved-advancing as able Plant And Maintenance Technician Goal (LTG) Pt will show imrpoved strength by inc MMT of UE to at leat 4 +/5 B and at least 3/5 EFT to shwo improved scap stabiltiy w /o loading the neck. 07/29-improved LTG Duration 08/31 sleep Short Term Goal (STG) Pt will be educated on self management for pain at night and sleep positions to help dec pain at night. 07/20/22: Pt trying one pillow instead of two. Better per pt but still nights where she can 't fall asleep due to pain; once asleep stays asleep. STG Duration achieved Plant And Maintenance Technician Goal (LTG) Pt will report no distruption of sleep at night d/t pain. 07/29-has some nights LTG Duration 08/31 ROM Short Term Goal (STG) Pt will improve ROM inall planes by 10 deg. 07/29-achieved all except rot R STG Duration 07/30 Long-Term Goal (LTG) Pt will have rotation to at least 60 deg B w/o pain to allow improved ease with driving and flex to at least 50 deg to allow inc ease w/ reading. 07/20/22: Pt bought youngblood and will try it to help w/ neck pain. LTG Duration 08/31 NDI Impairment 1550 Short Term Goal (STG) Pt will improve score to no greater than 9/50 to show improved functional ability 07/29- STG Duration 07/20 Long-Term Goal (LTG) Pt will improve score to no greater than 3/50 to show improved functional ability LTG Duration 08/31 Assessment Summary Assessment Pt had much improved L passive SB and active/passive L rotation w/less discomfort w/ manual treatment today. Physical Therapy Plan Frequency and Duration Frequency of Treatment 2x/Week Duration of treatment (weeks) 12 Plan of Care Start Date 06/01/22 Plan of Care End Date 08/31/22 Next Visit Focus/Plan Next Note Type Treatment Note Next Visit Plan check exercises and dec number for home. Improve L rotation & SB ability
--- NOTE | 2022-08-17 13:32 | PT.OTN ---
Current Diagnoses Cervicalgia (08/17/22) Abnormal posture (08/17/22) Physical Therapy Treatment Note PT-OP-A Visit Information Start: 05/27/22 18:14 Freq: Status: Active Protocol: Document 08/17/22 10:35 [facility] (Rec: 08/17/22 13:28 [facility] [id number]) Out-Patient Physical Therapy Visit Information Visit Information Visit Type Treatment Note Visit Note 01/26 Visit Start Time 10:35 Visit Stop Time 11:48 Total Visit Minutes 53 Visit Number 15 Number of MOLD TECHNICIAN Visits 0 PT-OP-B Current Condition Start: 05/27/22 18:14 Freq: Status: Active Protocol: Document 06/01/22 07:30 [facility] (Rec: 06/01/22 08:26 [facility] [id number]) Current Condition History of Current Condition Onset Date 1 year Current Complaints neck pain History of Current Condition Pt reports pain in neck has been going on for about a year but got worse in February and March this year. She saw MD who did Xray and noticed crunching w/movement and pt notes taht is painful. It is difficult for her to get to sleep at night. Most of the pain is on the left and stays on the left. No neck pain history prior to the last year . Pt had a fall in the winter where she caught her foot and went forward but that didn't inc pain. No history of shoulder issues. Pt reprots occular migraines that happen only a couple times a year. Does reprot a bella few years ago in her bedroom where she hit the edge of a chest with left ribcage and may have fractured ribs but MD chose not to do xray Prior Treatments and Tests no other treatment Xray: IMPRESSION: 1. Multilevel degenerative disc disease. 2. Multilevel facet and uncovertebral arthropathy. 3. No fracture. No acute osseous lesion. If symptoms and/or clinical suspicion for pathology persists, evaluation with MRI should be considered for further assessment. Treatment Goals Patient/Caregiver Goals Get rid of the neck pain, be able to sleep PT-OP-C Subjective Start: 05/27/22 18:14 Freq: Status: Active Protocol: Document 08/17/22 10:35 [facility] (Rec: 08/17/22 13:28 [facility] [id number]) OP-PT Subjective Patient Comments Patient Comments Pt reports her dgt noticed she sleeps in recliner w/neck in flex. She is really sore from that this weekend and feels tight PT-OP-F Manual Assessment Start: 05/27/22 18:14 Freq: Status: Active Protocol: Document 06/01/22 07:30 [facility] (Rec: 06/01/22 08:26 [facility] [id number]) Manual Assessments Soft Tissue Assessment Soft Tissue Mobility Assessment L side mm significantly tighter & tender Joint Mobility Assessment Joint Mobility Assessment 1st rib L elevated, fwd rounded shoulder L>R PT-OP-J Posture/Palpation/Skin Start: 05/27/22 18:14 Freq: Status: Active Protocol: Document 06/01/22 07:30 [facility] (Rec: 06/01/22 08:26 [facility] [id number]) Posture Evaluation [facility] Postural Classification System Elbow Flexion Test 0 Comments Posture Comments mild kyphosis , fwd head PT-OP-K Range of Motion Start: 05/27/22 18:14 Freq: Status: Active Protocol: Document 07/29/22 10:32 [facility] (Rec: 07/29/22 12:21 [facility] [id number]) Cervical Spine Range of Motion Cervical Spine Active Degrees Flexion 54 Extension 42 Rotation Left 46 Rotation Right 45 Lateral Flexion Left 22 Lateral Flexion Right 25 Comments pain L>R SB, B rot PT-OP-L Special Tests Start: 05/27/22 18:14 Freq: Status: Active Protocol: Document 06/01/22 07:30 [facility] (Rec: 06/01/22 08:26 [facility] [id number]) Special Tests Cervical Spine Special Tests Vertebral Artery Test Results neg Spurling's Test Test Results neg Alar Ligament Test Results neg PT-OP-M Strength Start: 05/27/22 18:14 Freq: Status: Active Protocol: Document 07/29/22 10:32 [facility] (Rec: 07/29/22 12:21 [facility] [id number]) Shoulder Strength Shoulder Manual Muscle Testing Right Flexion 5 Normal Extension 5 Normal Abduction (C5) 5 Normal External Rotation 5 Normal Internal Rotation 5 Normal Left Flexion 5 Normal Extension 5 Normal Abduction (C5) 5 Normal External Rotation 4+ Good+ Internal Rotation 5 Normal Comments pain PT-OP-Q Treatments Start: 05/27/22 18:14 Freq: Status: Active Protocol: Document 08/17/22 10:35 [facility] (Rec: 08/17/22 13:28 [facility] [id number]) Manual Therapy Treatment Soft Tissue Mobilization SO Body Location B- SOR Mobilization Type Sustained Pressure Intensity/Depth Moderate Body Position Hooklying paraspinals Body Location cervical L>R Mobilization Type Rolling,Strumming Intensity/Depth Moderate Body Position Sidelying UT/LS Body Location L>R UT, LS, SCM, scalenes Mobilization Type Rolling Intensity/Depth Moderate Body Position Sidelying Comments w/post dep c/r Joint Mobilizations thoracic Comments L transverse T1-2 PA T1-3 FM cervical Comments transverse L C2; transverse R C 4 PT-OP-R Modalities Start: 05/27/22 18:14 Freq: Status: Active Protocol: Document 08/17/22 10:35 [facility] (Rec: 08/17/22 13:28 [facility] [id number]) Electric Stimulation Electric Stimulation Interferential Current (IFC) Body Location L UT/med scap Duration (Minutes) 10 Patient Position Supine Combined With Heat/Cold Cold Pack PT-OP-T Assessment and Plan Start: 05/27/22 18:14 Freq: Status: Active Protocol: Document 08/17/22 10:35 [facility] (Rec: 08/17/22 13:28 [facility] [id number]) Physical Therapy Assessment Goals stability Short Term Goal (STG) Pt will be indep w/HEP STG Duration achieved-advancing as able Data Processing Manager Goal (LTG) Pt will show imrpoved strength by inc MMT of UE to at leat 4 +/5 B and at least 3/5 EFT to shwo improved scap stabiltiy w /o loading the neck. 07/29-improved LTG Duration 08/31 sleep Short Term Goal (STG) Pt will be educated on self management for pain at night and sleep positions to help dec pain at night. 07/20/22: Pt trying one pillow instead of two. Better per pt but still nights where she can 't fall asleep due to pain; once asleep stays asleep. STG Duration achieved Data Processing Manager Goal (LTG) Pt will report no distruption of sleep at night d/t pain. 07/29-has some nights LTG Duration 08/31 ROM Short Term Goal (STG) Pt will improve ROM inall planes by 10 deg. 07/29-achieved all except rot R STG Duration 07/30 Data Processing Manager Goal (LTG) Pt will have rotation to at least 60 deg B w/o pain to allow improved ease with driving and flex to at least 50 deg to allow inc ease w/ reading. 07/20/22: Pt bought youngblood and will try it to help w/ neck pain. LTG Duration 08/31 NDI Impairment 15/50 Short Term Goal (STG) Pt will improve score to no greater than 9/50 to show improved functional ability 07/29- STG Duration 07/20 Halfway Goal (LTG) Pt will improve score to no greater than 3/50 to show improved functional ability LTG Duration 08/31 Assessment Summary Assessment Pt was very tight at start of session more than she has been recently likely d/t cooking and sleeping in recliner. She improved significantly w/B rotaiton & B SB after. Physical Therapy Plan Frequency and Duration Frequency of Treatment 2x/Week Duration of treatment (weeks) 12 Plan of Care Start Date 06/01/22 Plan of Care End Date 08/31/22 Next Visit Focus/Plan Next Note Type Treatment Note Next Visit Plan check exercises and dec number for home. Improve L rotation & SB ability
--- NOTE | 2022-08-19 10:01 | PT.OTN ---
Current Diagnoses Cervicalgia (08/19/22) Abnormal posture (08/19/22) Physical Therapy Treatment Note PT-OP-A Visit Information Start: 05/27/22 18:14 Freq: Status: Active Protocol: Document 08/19/22 08:04 [facility] (Rec: 08/19/22 10:01 [facility] [id number]) Out-Patient Physical Therapy Visit Information Visit Information Visit Type Treatment Note Visit Note 02/26 Visit Start Time 08:17 Visit Stop Time 09:10 Total Visit Minutes 53 Visit Number 16 Number of CODING TECH Visits 0 PT-OP-B Current Condition Start: 05/27/22 18:14 Freq: Status: Active Protocol: Document 06/01/22 07:30 [facility] (Rec: 06/01/22 08:26 [facility] [id number]) Current Condition History of Current Condition Onset Date 1 year Current Complaints neck pain History of Current Condition Pt reports pain in neck has been going on for about a year but got worse in February and March this year. She saw MD who did Xray and noticed crunching w/movement and pt notes taht is painful. It is difficult for her to get to sleep at night. Most of the pain is on the left and stays on the left. No neck pain history prior to the last year . Pt had a fall in the winter where she caught her foot and went forward but that didn't inc pain. No history of shoulder issues. Pt reprots occular migraines that happen only a couple times a year. Does reprot a bella few years ago in her bedroom where she hit the edge of a chest with left ribcage and may have fractured ribs but MD chose not to do xray Prior Treatments and Tests no other treatment Xray: IMPRESSION: 1. Multilevel degenerative disc disease. 2. Multilevel facet and uncovertebral arthropathy. 3. No fracture. No acute osseous lesion. If symptoms and/or clinical suspicion for pathology persists, evaluation with MRI should be considered for further assessment. Treatment Goals Patient/Caregiver Goals Get rid of the neck pain, be able to sleep PT-OP-C Subjective Start: 05/27/22 18:14 Freq: Status: Active Protocol: Document 08/19/22 08:04 [facility] (Rec: 08/19/22 10:01 [facility] [id number]) OP-PT Subjective Patient Comments Patient Comments Pt reports sore of L side today. PT-OP-F Manual Assessment Start: 05/27/22 18:14 Freq: Status: Active Protocol: Document 06/01/22 07:30 [facility] (Rec: 06/01/22 08:26 [facility] [id number]) Manual Assessments Soft Tissue Assessment Soft Tissue Mobility Assessment L side mm significantly tighter & tender Joint Mobility Assessment Joint Mobility Assessment 1st rib L elevated, fwd rounded shoulder L>R PT-OP-J Posture/Palpation/Skin Start: 05/27/22 18:14 Freq: Status: Active Protocol: Document 06/01/22 07:30 [facility] (Rec: 06/01/22 08:26 [facility] [id number]) Posture Evaluation [facility] Postural Classification System Elbow Flexion Test 0 Comments Posture Comments mild kyphosis , fwd head PT-OP-K Range of Motion Start: 05/27/22 18:14 Freq: Status: Active Protocol: Document 07/29/22 10:32 [facility] (Rec: 07/29/22 12:21 [facility] [id number]) Cervical Spine Range of Motion Cervical Spine Active Degrees Flexion 54 Extension 42 Rotation Left 46 Rotation Right 45 Lateral Flexion Left 22 Lateral Flexion Right 25 Comments pain L>R SB, B rot PT-OP-L Special Tests Start: 05/27/22 18:14 Freq: Status: Active Protocol: Document 06/01/22 07:30 [facility] (Rec: 06/01/22 08:26 [facility] [id number]) Special Tests Cervical Spine Special Tests Vertebral Artery Test Results neg Spurling's Test Test Results neg Alar Ligament Test Results neg PT-OP-M Strength Start: 05/27/22 18:14 Freq: Status: Active Protocol: Document 07/29/22 10:32 [facility] (Rec: 07/29/22 12:21 [facility] [id number]) Shoulder Strength Shoulder Manual Muscle Testing Right Flexion 5 Normal Extension 5 Normal Abduction (C5) 5 Normal External Rotation 5 Normal Internal Rotation 5 Normal Left Flexion 5 Normal Extension 5 Normal Abduction (C5) 5 Normal External Rotation 4+ Good+ Internal Rotation 5 Normal Comments pain PT-OP-Q Treatments Start: 05/27/22 18:14 Freq: Status: Active Protocol: Document 08/19/22 08:04 [facility] (Rec: 08/19/22 10:01 [facility] [id number]) Manual Therapy Treatment Soft Tissue Mobilization median n pathway Body Location L pec Mobilization Type Rolling,Sustained Pressure Intensity/Depth Moderate Comments w/L shoulder ER paraspinals Body Location cervical L>R Mobilization Type Myofascial Release,Rolling, Strumming Intensity/Depth Moderate Body Position Sidelying Joint Mobilizations GH Joint L Direction post glide FM ribs Comments L 1&2 AP & caudal thoracic Comments transverse R T1-3 FM PA T1-6 FM UPA T2-4 L FM PT-OP-R Modalities Start: 05/27/22 18:14 Freq: Status: Active Protocol: Document 08/19/22 08:04 [facility] (Rec: 08/19/22 10:01 [facility] [id number]) Electric Stimulation Electric Stimulation Interferential Current (IFC) Body Location L UT/med scap Duration (Minutes) 10 Patient Position Supine Combined With Heat/Cold Cold Pack PT-OP-T Assessment and Plan Start: 05/27/22 18:14 Freq: Status: Active Protocol: Document 08/19/22 08:04 [facility] (Rec: 08/19/22 10:01 [facility] [id number]) Physical Therapy Assessment Goals stability Short Term Goal (STG) Pt will be indep w/HEP STG Duration achieved-advancing as able Residential Goal (LTG) Pt will show imrpoved strength by inc MMT of UE to at leat 4 +/5 B and at least 3/5 EFT to shwo improved scap stabiltiy w /o loading the neck. 07/29-improved LTG Duration 08/31 sleep Short Term Goal (STG) Pt will be educated on self management for pain at night and sleep positions to help dec pain at night. 07/20/22: Pt trying one pillow instead of two. Better per pt but still nights where she can 't fall asleep due to pain; once asleep stays asleep. STG Duration achieved Airport Attendant Goal (LTG) Pt will report no distruption of sleep at night d/t pain. 07/29-has some nights LTG Duration 08/31 ROM Short Term Goal (STG) Pt will improve ROM inall planes by 10 deg. 07/29-achieved all except rot R STG Duration 07/30 Residential Goal (LTG) Pt will have rotation to at least 60 deg B w/o pain to allow improved ease with driving and flex to at least 50 deg to allow inc ease w/ reading. 07/20/22: Pt bought youngblood and will try it to help w/ neck pain. LTG Duration 08/31 NDI Impairment 1550 Short Term Goal (STG) Pt will improve score to no greater than 9/50 to show improved functional ability 07/29-14 STG Duration 07/20 Airport Attendant Goal (LTG) Pt will improve score to no greater than 3/50 to show improved functional ability LTG Duration 08/31 Assessment Summary Assessment Pt is improving w/L cervical ROM and had imrpoved ability to get L scap into retraction & depressio w/manual which likely helped improve ROM. Physical Therapy Plan Frequency and Duration Frequency of Treatment 2x/Week Duration of treatment (weeks) 12 Plan of Care Start Date 06/01/22 Plan of Care End Date 08/31/22 Next Visit Focus/Plan Next Note Type Treatment Note Next Visit Plan check exercises and dec number for home. Improve L rotation & SB ability
--- NOTE | 2022-08-26 18:46 | PT.OTN ---
Current Diagnoses Cervicalgia (08/26/22) Abnormal posture (08/26/22) Physical Therapy Treatment Note PT-OP-A Visit Information Start: 05/27/22 18:14 Freq: Status: Active Protocol: Document 08/26/22 13:01 [facility] (Rec: 08/26/22 18:46 [facility] [id number]) Out-Patient Physical Therapy Visit Information Visit Information Visit Type Progress Note Visit Note 09/28 Visit Start Time 13:02 Visit Stop Time 13:55 Total Visit Minutes 53 Visit Number 17 Number of EVENT AV OPERATOR Visits 0 PT-OP-B Current Condition Start: 05/27/22 18:14 Freq: Status: Active Protocol: Document 06/01/22 07:30 [facility] (Rec: 06/01/22 08:26 [facility] [id number]) Current Condition History of Current Condition Onset Date 1 year Current Complaints neck pain History of Current Condition Pt reports pain in neck has been going on for about a year but got worse in February and March this year. She saw MD who did Xray and noticed crunching w/movement and pt notes taht is painful. It is difficult for her to get to sleep at night. Most of the pain is on the left and stays on the left. No neck pain history prior to the last year . Pt had a fall in the winter where she caught her foot and went forward but that didn't inc pain. No history of shoulder issues. Pt reprots occular migraines that happen only a couple times a year. Does reprot a bella few years ago in her bedroom where she hit the edge of a chest with left ribcage and may have fractured ribs but MD chose not to do xray Prior Treatments and Tests no other treatment Xray: IMPRESSION: 1. Multilevel degenerative disc disease. 2. Multilevel facet and uncovertebral arthropathy. 3. No fracture. No acute osseous lesion. If symptoms and/or clinical suspicion for pathology persists, evaluation with MRI should be considered for further assessment. Treatment Goals Patient/Caregiver Goals Get rid of the neck pain, be able to sleep PT-OP-C Subjective Start: 05/27/22 18:14 Freq: Status: Active Protocol: Document 08/26/22 13:01 [facility] (Rec: 08/26/22 18:46 [facility] [id number]) OP-PT Subjective Patient Comments Patient Comments Pt reports L neck soreness Patient Questionnaires Neck Disability Index NDI Score 14/50 PT-OP-F Manual Assessment Start: 05/27/22 18:14 Freq: Status: Active Protocol: Document 06/01/22 07:30 [facility] (Rec: 06/01/22 08:26 [facility] [id number]) Manual Assessments Soft Tissue Assessment Soft Tissue Mobility Assessment L side mm significantly tighter & tender Joint Mobility Assessment Joint Mobility Assessment 1st rib L elevated, fwd rounded shoulder L>R PT-OP-J Posture/Palpation/Skin Start: 05/27/22 18:14 Freq: Status: Active Protocol: Document 08/26/22 13:01 [facility] (Rec: 08/26/22 18:46 [facility] [id number]) Posture Evaluation [facility] Postural Classification System Elbow Flexion Test 1 PT-OP-K Range of Motion Start: 05/27/22 18:14 Freq: Status: Active Protocol: Document 08/26/22 13:01 [facility] (Rec: 08/26/22 18:46 [facility] [id number]) Cervical Spine Range of Motion Cervical Spine Active Degrees Flexion 60 Extension 48 Rotation Left 49 Rotation Right 43 Lateral Flexion Left 32 Lateral Flexion Right 35 Comments pain L>R SB, B rot PT-OP-L Special Tests Start: 05/27/22 18:14 Freq: Status: Active Protocol: Document 06/01/22 07:30 [facility] (Rec: 06/01/22 08:26 [facility] [id number]) Special Tests Cervical Spine Special Tests Vertebral Artery Test Results neg Spurling's Test Test Results neg Alar Ligament Test Results neg PT-OP-M Strength Start: 05/27/22 18:14 Freq: Status: Active Protocol: Document 08/26/22 13:01 [facility] (Rec: 08/26/22 18:46 [facility] [id number]) Shoulder Strength Shoulder Manual Muscle Testing Right Flexion 5 Normal Extension 5 Normal Abduction (C5) 5 Normal External Rotation 5 Normal Internal Rotation 5 Normal Left Flexion 5 Normal Extension 5 Normal Abduction (C5) 5 Normal External Rotation 5 Normal Internal Rotation 5 Normal Comments pain after resistance PT-OP-Q Treatments Start: 05/27/22 18:14 Freq: Status: Active Protocol: Document 08/26/22 13:01 [facility] (Rec: 08/26/22 18:46 [facility] [id number]) Therapeutic Exercises Sidelying Exercises open book Side bilateral Equipment Used pillow between knees/ankles Reps/Minutes 8 x 3 breath hold Comments cues for gentle movement Sitting Exercises stretch Sitting Exercise Name LS, UT, Scalenes Side bilateral Reps/Minutes 30 sec ea Standing Exercises wall posture Standing Exercise Name 1. wall roll up Side bilateral Reps/Minutes 5 min Comments inc time and cues for set up Chin tucks Standing Exercise Name sitting Equipment Used lvl 1 Reps/Minutes 5 sec x15 Comments max cues ER Standing Exercise Name cues for scap retract Side bilateral Resistance Lvl1 Band Reps/Minutes 8 Comments cues for elbows at side w/ scap retract, palms up row Side bilateral Equipment Used lvl 1 Reps/Minutes 15 Comments cues for form chin tuck, core Manual Therapy Treatment Soft Tissue Mobilization UT/LS Body Location L>R UT, LS, SCM, scalenes Mobilization Type Rolling Intensity/Depth Moderate Body Position Supine Self-Care/Home Management Treatment Education Other Education review of HEP papers and discussed which ones to pull. Edu re: importance of doing stretches daily but 30 sec holds to dec time doing exercises. Edu re: importance of postural exercises. Discussed how to find neutral neck position & supoprt neck best in supine & s/l for sleeping x15 min PT-OP-R Modalities Start: 05/27/22 18:14 Freq: Status: Active Protocol: Document 08/26/22 13:01 [facility] (Rec: 08/26/22 18:46 [facility] [id number]) Electric Stimulation Electric Stimulation Interferential Current (IFC) Body Location L UT/med scap Duration (Minutes) 10 Patient Position Supine Combined With Heat/Cold Cold Pack PT-OP-T Assessment and Plan Start: 05/27/22 18:14 Freq: Status: Active Protocol: Document 08/26/22 13:01 [facility] (Rec: 08/26/22 18:46 [facility] [id number]) Physical Therapy Assessment Goals stability Short Term Goal (STG) Pt will be indep w/HEP STG Duration achieved-advancing as able Armature Winder Repair Goal (LTG) Pt will show imrpoved strength by inc MMT of UE to at leat 4 +/5 B and at least 3/5 EFT to shwo improved scap stabiltiy w /o loading the neck. 07/29-improved 08/26-good strength but EFT dec but pain after MMT but not during LTG Duration 10/19 sleep Short Term Goal (STG) Pt will be educated on self management for pain at night and sleep positions to help dec pain at night. 07/20/22: Pt trying one pillow instead of two. Better per pt but still nights where she can 't fall asleep due to pain; once asleep stays asleep. STG Duration achieved Residential Goal (LTG) Pt will report no distruption of sleep at night d/t pain. 07/29-has some nights 08/26-still has difficulty LTG Duration 10/19 ROM Short Term Goal (STG) Pt will improve ROM inall planes by 10 deg. 07/29-achieved all except rot R 08/26-cont improved but still slightly limited in R rot ( needs to achieve 52 deg) STG Duration 09/26 Residential Goal (LTG) Pt will have rotation to at least 60 deg B w/o pain to allow improved ease with driving and flex to at least 50 deg to allow inc ease w/ reading. 07/20/22: Pt bought youngblood and will try it to help w/ neck pain. LTG Duration 10/19/22 NDI Impairment 15/50 Short Term Goal (STG) Pt will improve score to no greater than 9/50 to show improved functional ability 07/29-14/ STG Duration 09/26/22 Residential Goal (LTG) Pt will improve score to no greater than 3/50 to show improved functional ability LTG Duration 10/19/22 Assessment Summary Assessment Pt had a set back after but is gradually getting bakc to where she was prior to this. She is still limited in her ROM and has signficiant pain in L side neck. COnt PT to dec this pain and improve HEP performance Physical Therapy Plan Frequency and Duration Frequency of Treatment 1-2x/Week Duration of treatment (weeks) 8 Plan of Care Start Date 08/26/22 Plan of Care End Date 10/19/22 Therapeutic Interventions Therapeutic Interventions Home Exercise Program,Joint Mobilizations,Manual Therapy, Neuromuscular Re-education, Patient/Caregiver Education, Self-Care/Home Management,Soft Tissue Mobilization,Taping, Therapeutic Activities, Therapeutic Exercises Modalities Cold Pack/Ice Massage,Electric Stimulation,Hot Packs, Ultrasound Next Visit Focus/Plan Next Note Type Treatment Note Next Visit Plan focus on manual to Improve B rotation & SB ability
--- NOTE | 2022-08-26 18:46 | PT.OPPOC ---
Physical, Occupational & Speech Therapy At [facility] Current Diagnoses Cervicalgia (08/26/22) Abnormal posture (08/26/22) Visit Care Team Role Provider Type Keyanna Gamino MD Attending Provider Physician Family Provider Primary Care Provider Referring Provider Specialty: Family Practice Address: [address] [place] [address] [place], [address] Email: [email or web address] Plan Of Care PT-OP-T Assessment and Plan Start: 05/27/22 18:14 Freq: Status: Active Protocol: Document 08/26/22 13:01 [facility] (Rec: 08/26/22 18:46 [facility] [id number]) Physical Therapy Assessment Goals stability Short Term Goal (STG) Pt will be indep w/HEP STG Duration achieved-advancing as able Detention Goal (LTG) Pt will show imrpoved strength by inc MMT of UE to at leat 4 +/5 B and at least 3/5 EFT to shwo improved scap stabiltiy w /o loading the neck. 07/29-improved 08/26-good strength but EFT dec but pain after MMT but not during LTG Duration 10/19 sleep Short Term Goal (STG) Pt will be educated on self management for pain at night and sleep positions to help dec pain at night. 07/20/22: Pt trying one pillow instead of two. Better per pt but still nights where she can 't fall asleep due to pain; once asleep stays asleep. STG Duration achieved Detention Goal (LTG) Pt will report no distruption of sleep at night d/t pain. 07/29-has some nights 08/26-still has difficulty LTG Duration 10/19 ROM Short Term Goal (STG) Pt will improve ROM inall planes by 10 deg. 07/29-achieved all except rot R 08/26-cont improved but still slightly limited in R rot ( needs to achieve 52 deg) STG Duration 09/26 Tower Director Goal (LTG) Pt will have rotation to at least 60 deg B w/o pain to allow improved ease with driving and flex to at least 50 deg to allow inc ease w/ reading. 07/20/22: Pt bought youngblood and will try it to help w/ neck pain. LTG Duration 10/19/22 NDI Impairment 1550 Short Term Goal (STG) Pt will improve score to no greater than 9/50 to show improved functional ability 07/29-14 STG Duration 09/26/22 Detention Goal (LTG) Pt will improve score to no greater than 3/50 to show improved functional ability LTG Duration 10/19/22 Assessment Summary Assessment Pt had a set back after weekend but is gradually getting bakc to where she was prior to this. She is still limited in her ROM and has signficiant pain in L side neck. COnt PT to dec this pain and improve HEP performance Physical Therapy Plan Frequency and Duration Frequency of Treatment 1-2x/Week Duration of treatment (weeks) 8 Plan of Care Start Date 08/26/22 Plan of Care End Date 10/19/22 Therapeutic Interventions Therapeutic Interventions Home Exercise Program,Joint Mobilizations,Manual Therapy, Neuromuscular Re-education, Patient/Caregiver Education, Self-Care/Home Management,Soft Tissue Mobilization,Taping, Therapeutic Activities, Therapeutic Exercises Modalities Cold Pack/Ice Massage,Electric Stimulation,Hot Packs, Ultrasound Next Visit Focus/Plan Next Note Type Treatment Note Next Visit Plan focus on manual to Improve B rotation & SB ability Plan of Care Dates Plan of Care Start Date 08/26/22 Plan of Care End Date 10/19/22 Electronically Signed by: Sallie Cosme, PT 08/26/22 7649 If you are in agreement with this Plan of Care, please return a signed and dated copy. I have reviewed this Plan of Care and certify that the skilled therapy services above are required to meet the patient?s needs. Physician Signature Date Printed Name and Credentials Clinical Instructor Signature Printed Name and Credentials
--- NOTE | 2022-09-02 12:26 | PT.OTN ---
Current Diagnoses Cervicalgia (09/02/22) Abnormal posture (09/02/22) Physical Therapy Treatment Note PT-OP-A Visit Information Start: 05/27/22 18:14 Freq: Status: Active Protocol: Document 09/02/22 10:45 [facility] (Rec: 09/02/22 12:26 [facility] [id number]) Out-Patient Physical Therapy Visit Information Visit Information Visit Type Treatment Note Visit Note 10/29 Visit Start Time 11:20 Visit Stop Time 12:13 Total Visit Minutes 53 Visit Number 18 Number of DIE CUTTER Visits 0 PT-OP-B Current Condition Start: 05/27/22 18:14 Freq: Status: Active Protocol: Document 06/01/22 07:30 [facility] (Rec: 06/01/22 08:26 [facility] [id number]) Current Condition History of Current Condition Onset Date 1 year Current Complaints neck pain History of Current Condition Pt reports pain in neck has been going on for about a year but got worse in February and March this year. She saw MD who did Xray and noticed crunching w/movement and pt notes taht is painful. It is difficult for her to get to sleep at night. Most of the pain is on the left and stays on the left. No neck pain history prior to the last year . Pt had a fall in the winter where she caught her foot and went forward but that didn't inc pain. No history of shoulder issues. Pt reprots occular migraines that happen only a couple times a year. Does reprot a bella few years ago in her bedroom where she hit the edge of a chest with left ribcage and may have fractured ribs but MD chose not to do xray Prior Treatments and Tests no other treatment Xray: IMPRESSION: 1. Multilevel degenerative disc disease. 2. Multilevel facet and uncovertebral arthropathy. 3. No fracture. No acute osseous lesion. If symptoms and/or clinical suspicion for pathology persists, evaluation with MRI should be considered for further assessment. Treatment Goals Patient/Caregiver Goals Get rid of the neck pain, be able to sleep PT-OP-C Subjective Start: 05/27/22 18:14 Freq: Status: Active Protocol: Document 09/02/22 10:45 [facility] (Rec: 09/02/22 12:26 [facility] [id number]) OP-PT Subjective Patient Comments Patient Comments Pt reports today is a good day PT-OP-F Manual Assessment Start: 05/27/22 18:14 Freq: Status: Active Protocol: Document 06/01/22 07:30 [facility] (Rec: 06/01/22 08:26 [id number] Manual Assessments Soft Tissue Assessment Soft Tissue Mobility Assessment L side mm significantly tighter & tender Joint Mobility Assessment Joint Mobility Assessment 1st rib L elevated, fwd rounded shoulder L>R PT-OP-J Posture/Palpation/Skin Start: 05/27/22 18:14 Freq: Status: Active Protocol: Document 08/26/22 13:01 [facility] (Rec: 08/26/22 18:46 [facility] [id number]) Posture Evaluation [facility] Postural Classification System Elbow Flexion Test 1 PT-OP-K Range of Motion Start: 05/27/22 18:14 Freq: Status: Active Protocol: Document 08/26/22 13:01 [facility] (Rec: 08/26/22 18:46 [facility] [id number]) Cervical Spine Range of Motion Cervical Spine Active Degrees Flexion 60 Extension 48 Rotation Left 49 Rotation Right 43 Lateral Flexion Left 32 Lateral Flexion Right 35 Comments pain L>R SB, B rot PT-OP-L Special Tests Start: 05/27/22 18:14 Freq: Status: Active Protocol: Document 06/01/22 07:30 [facility] (Rec: 06/01/22 08:26 [facility] [id number]) Special Tests Cervical Spine Special Tests Vertebral Artery Test Results neg Spurling's Test Test Results neg Alar Ligament Test Results neg PT-OP-M Strength Start: 05/27/22 18:14 Freq: Status: Active Protocol: Document 08/26/22 13:01 [facility] (Rec: 08/26/22 18:46 [facility] [id number]) Shoulder Strength Shoulder Manual Muscle Testing Right Flexion 5 Normal Extension 5 Normal Abduction (C5) 5 Normal External Rotation 5 Normal Internal Rotation 5 Normal Left Flexion 5 Normal Extension 5 Normal Abduction (C5) 5 Normal External Rotation 5 Normal Internal Rotation 5 Normal Comments pain after resistance PT-OP-Q Treatments Start: 05/27/22 18:14 Freq: Status: Active Protocol: Document 09/02/22 10:45 [facility] (Rec: 09/02/22 12:26 [facility] [id number]) Therapeutic Exercises Standing Exercises wall posture Standing Exercise Name 1. wall roll upw/B ER/HAbd Side bilateral Reps/Minutes 3 roll ups x15 Chin tucks Standing Exercise Name sitting Reps/Minutes 5 sec x20 Comments max cues Manual Therapy Treatment Soft Tissue Mobilization paraspinals Body Location cervical L>R Mobilization Type Myofascial Release,Rolling, Strumming Intensity/Depth Moderate Body Position Sidelying UT/LS Body Location L>R UT, LS, SCM, scalenes Mobilization Type Rolling Intensity/Depth Moderate Body Position Supine Joint Mobilizations ribs Comments L 1st caudal cervical Comments C3 & 4 R transverse FM s/l PT-OP-R Modalities Start: 05/27/22 18:14 Freq: Status: Active Protocol: Document 09/02/22 10:45 [facility] (Rec: 09/02/22 12:26 [facility] [id number]) Electric Stimulation Electric Stimulation Interferential Current (IFC) Body Location L UT/med scap Duration (Minutes) 10 Patient Position Supine Combined With Heat/Cold Cold Pack PT-OP-T Assessment and Plan Start: 05/27/22 18:14 Freq: Status: Active Protocol: Document 09/02/22 10:45 [facility] (Rec: 09/02/22 12:26 [facility] [id number]) Physical Therapy Assessment Goals stability Short Term Goal (STG) Pt will be indep w/HEP STG Duration achieved-advancing as able Custodial Goal (LTG) Pt will show imrpoved strength by inc MMT of UE to at leat 4 +/5 B and at least 3/5 EFT to shwo improved scap stabiltiy w /o loading the neck. 07/29-improved 08/26-good strength but EFT dec but pain after MMT but not during LTG Duration 10/19 sleep Short Term Goal (STG) Pt will be educated on self management for pain at night and sleep positions to help dec pain at night. 07/20/22: Pt trying one pillow instead of two. Better per pt but still nights where she can 't fall asleep due to pain; once asleep stays asleep. STG Duration achieved Custodial Goal (LTG) Pt will report no distruption of sleep at night d/t pain. 07/29-has some nights 08/26-still has difficulty LTG Duration 10/19 ROM Short Term Goal (STG) Pt will improve ROM inall planes by 10 deg. 07/29-achieved all except rot R 08/26-cont improved but still slightly limited in R rot ( needs to achieve 52 deg) STG Duration 09/26 Custodial Goal (LTG) Pt will have rotation to at least 60 deg B w/o pain to allow improved ease with driving and flex to at least 50 deg to allow inc ease w/ reading. 07/20/22: Pt bought youngblood and will try it to help w/ neck pain. LTG Duration 10/19/22 NDI Impairment 15 Short Term Goal (STG) Pt will improve score to no greater than 9/50 to show improved functional ability 07/29- STG Duration 09/26/22 Mobile Ui/Ux Designer Goal (LTG) Pt will improve score to no greater than 3/50 to show improved functional ability LTG Duration 10/19/22 Assessment Summary Assessment Pt did better with exercises w /repetitions but still requires a lot of cues. She had much improved SB to L w/ less pain after s/l C mobs. Physical Therapy Plan Frequency and Duration Frequency of Treatment 1-2x/Week Duration of treatment (weeks) 8 Plan of Care Start Date 08/26/22 Plan of Care End Date 10/19/22 Next Visit Focus/Plan Next Note Type Treatment Note Next Visit Plan focus on manual to Improve B rotation & SB ability
--- NOTE | 2022-11-30 08:53 | PT.OPDS ---
Current Diagnoses Cervicalgia (09/02/22) Abnormal posture (09/02/22) Visit Care Team Role Provider Type Keyanna Gamino MD Attending Provider Physician Family Provider Primary Care Provider Referring Provider Specialty: Family Practice Address: [address] [place] [address], [facility] [place] [place] [place], [facility] Email: [email or web address] Visit Number Visit Number 18 Discharge Summary PT-OP-B Current Condition Start: 05/27/22 18:14 Freq: Status: Active Protocol: Document 06/01/22 07:30 [facility] (Rec: 06/01/22 08:26 [facility] [id number]) Current Condition History of Current Condition Onset Date 1 year Current Complaints neck pain History of Current Condition Pt reports pain in neck has been going on for about a year but got worse in February and March this year. She saw MD who did Xray and noticed crunching w/movement and pt notes taht is painful. It is difficult for her to get to sleep at night. Most of the pain is on the left and stays on the left. No neck pain history prior to the last year . Pt had a fall in the winter where she caught her foot and went forward but that didn't inc pain. No history of shoulder issues. Pt reprots occular migraines that happen only a couple times a year. Does reprot a bella few years ago in her bedroom where she hit the edge of a chest with left ribcage and may have fractured ribs but MD chose not to do xray Prior Treatments and Tests no other treatment Xray: IMPRESSION: 1. Multilevel degenerative disc disease. 2. Multilevel facet and uncovertebral arthropathy. 3. No fracture. No acute osseous lesion. If symptoms and/or clinical suspicion for pathology persists, evaluation with MRI should be considered for further assessment. Treatment Goals Patient/Caregiver Goals Get rid of the neck pain, be able to sleep PT-OP-C Subjective Start: 05/27/22 18:14 Freq: Status: Active Protocol: Document 09/02/22 10:45 [facility] (Rec: 09/02/22 12:26 [facility] [id number]) OP-PT Subjective Patient Comments Patient Comments Pt reports today is a good day PT-OP-F Manual Assessment Start: 05/27/22 18:14 Freq: Status: Active Protocol: Document 06/01/22 07:30 [facility] (Rec: 06/01/22 08:26 [facility] [id number]) Manual Assessments Soft Tissue Assessment Soft Tissue Mobility Assessment L side mm significantly tighter & tender Joint Mobility Assessment Joint Mobility Assessment 1st rib L elevated, fwd rounded shoulder L>R PT-OP-J Posture/Palpation/Skin Start: 05/27/22 18:14 Freq: Status: Active Protocol: Document 08/26/22 13:01 [facility] (Rec: 08/26/22 18:46 [id number] Postural Classification System Elbow Flexion Test 1 PT-OP-K Range of Motion Start: 05/27/22 18:14 Freq: Status: Active Protocol: Document 08/26/22 13:01 [facility] (Rec: 08/26/22 18:46 [id number] Cervical Spine Range of Motion Cervical Spine Active Degrees Flexion 60 Extension 48 Rotation Left 49 Rotation Right 43 Lateral Flexion Left 32 Lateral Flexion Right 35 Comments pain L>R SB, B rot PT-OP-L Special Tests Start: 05/27/22 18:14 Freq: Status: Active Protocol: Document 06/01/22 07:30 [facility] (Rec: 06/01/22 08:26 [facility] [id number]) Special Tests Cervical Spine Special Tests Vertebral Artery Test Results neg Spurling's Test Test Results neg Alar Ligament Test Results neg PT-OP-M Strength Start: 05/27/22 18:14 Freq: Status: Active Protocol: Document 08/26/22 13:01 [facility] (Rec: 08/26/22 18:46 [facility] [id number]) Shoulder Strength Shoulder Manual Muscle Testing Right Flexion 5 Normal Extension 5 Normal Abduction (C5) 5 Normal External Rotation 5 Normal Internal Rotation 5 Normal Left Flexion 5 Normal Extension 5 Normal Abduction (C5) 5 Normal External Rotation 5 Normal Internal Rotation 5 Normal Comments pain after resistance PT-OP-T Assessment and Plan Start: 05/27/22 18:14 Freq: Status: Active Protocol: Document 11/30/22 08:52 [facility] (Rec: 11/30/22 08:53 [facility] [id number]) Physical Therapy Assessment Goals stability Short Term Goal (STG) Pt will be indep w/HEP STG Duration achieved-advancing as able Prison Goal (LTG) Pt will show imrpoved strength by inc MMT of UE to at leat 4 +/5 B and at least 3/5 EFT to shwo improved scap stabiltiy w /o loading the neck. 07/29-improved 08/26-good strength but EFT dec but pain after MMT but not during LTG Duration 10/19 sleep Short Term Goal (STG) Pt will be educated on self management for pain at night and sleep positions to help dec pain at night. 07/20/22: Pt trying one pillow instead of two. Better per pt but still nights where she can 't fall asleep due to pain; once asleep stays asleep. STG Duration achieved Plunger Scoop Operator Goal (LTG) Pt will report no distruption of sleep at night d/t pain. 07/29-has some nights 08/26-still has difficulty LTG Duration 10/19 ROM Short Term Goal (STG) Pt will improve ROM inall planes by 10 deg. 07/29-achieved all except rot R 08/26-cont improved but still slightly limited in R rot ( needs to achieve 52 deg) STG Duration 09/26 Prison Goal (LTG) Pt will have rotation to at least 60 deg B w/o pain to allow improved ease with driving and flex to at least 50 deg to allow inc ease w/ reading. 07/20/22: Pt bought youngblood and will try it to help w/ neck pain. LTG Duration 10/19/22 NDI Impairment 15/50 Short Term Goal (STG) Pt will improve score to no greater than 9/50 to show improved functional ability 07/29-14/50 STG Duration 09/26/22 Prison Goal (LTG) Pt will improve score to no greater than 3/50 to show improved functional ability LTG Duration 10/19/22 Assessment Summary Assessment Pt cancelled last remaining appts and has not been seen since 09/02. DC d/t pt no longer attending PT. Pt had made some progress w/ROM and pain w/PT but was still having limiting pain at last visit. Physical Therapy Plan Discharge Physical Therapy Discharge Reasons No Longer Attending PT
== END 2023-01-14 08:10 ==
LOC: PHYS 11:15
PROVIDERS: Family Provider Family Medicine; PCP Family Medicine; Referring Provider Family Medicine; Visit Provider Family Medicine
DX: M54.2 Cervicalgia (principal); R29.3 Abnormal posture
CPT/HCPCS: 97014; 97110; 97140; 97162; 97535; G0283

== ENCOUNTER 2023-01-27 09:05 | Emergency (ER) | payer MEDICARE, OTHER, SELFPAY ==
[2023-01-27] VITALS (22 sets, daily range): BP systolic 111–168; BP diastolic 56–70; PULSE 47–63; RESP 12–30; TEMP 36.9; O2SAT 93–100; BMI 34.1
--- NOTE | 2023-01-27 09:09 | DI.RAD.S_ITS ---
PROCEDURE: XR CHEST 1V INDICATIONS: chest pain TECHNIQUE: One view of the chest was acquired. COMPARISON: None. FINDINGS: Surgical changes and devices: None. Lungs and pleura: Lungs are clear. No pleural effusions or pneumothorax. Mediastinum: Mediastinal contours appear normal. Heart size is normal. Bones and chest wall: No suspicious bony lesions. Overlying soft tissues appear unremarkable. IMPRESSION: No acute cardiopulmonary abnormalities or focal airspace disease. Dictated by: Abhi Alvarado M.D. on 01/27/2023 at 9:28 Approved by: bAhi Alvarado M.D. on 01/27/2023 at 9:28
[2023-01-27 09:24] LABS: Add Manual Diff / Slide Review NO; Basophils Absolute Auto 0 /uL (0-100); Basophils Percent Auto 0.3 % (0-2); Eosinophils Absolute Auto 100 /uL (0-450); Eosinophils Percent Auto 1.6 % (2-4); Hematocrit 41.2 % (36-46); Hemoglobin 14.1 g/dL (12.0-16.0); Lymphocytes Absolute Auto 300 /uL (1100-4500); Lymphocytes Percent Auto 3.5 % (25-40); Mean Corpuscular HGB Conc 34.2 % (30-36); Mean Corpuscular Hemoglobin 30.4 PG (26-34); Mean Corpuscular Volume 88.7 fL (80-100); Monocytes Absolute Auto 600 /uL (0-900); Monocytes Percent Auto 8.1 % (3-14); Neutrophils Absolute Auto 6300 /uL (1500-7000); Neutrophils Percent Auto 86.5 % (50-75); Platelet Count 222 X10^3/uL (150-400); Red Blood Cell Count 4.64 X10^6/uL (4.0-5.2); Red Cell Distribution Width 13.9 % (11.6-14.8); White Blood Cell Count 7.3 X10^3/uL (4.5-11.0)
[2023-01-27 09:26] LABS: Prothrombin Time 11.6 SECONDS (10.1-12.7)
[2023-01-27 09:28] LABS: PTT Partial Thromboplastin Tim 27 SECONDS (26-36)
[2023-01-27 09:30] LABS: Alanine Aminotransferase 269 IU/L (<35); Albumin 3.5 g/dL (3.5-5.0); Albumin Globulin Ratio 1.2 (1.0-2.8); Alkaline Phosphatase 136 U/L (38-126); Aspartate Aminotransferase 165 IU/L (14-36); BUN Creatinine Ratio 32.7 (6-22); Bilirubin Total 0.6 mg/dL (0.2-1.3); Blood Urea Nitrogen 18 mg/dL (7-17); Calcium 8.2 mg/dL (8.4-10.2); Carbon Dioxide 29 mmol/L (22-32); Chloride 99 mmol/L (98-107); Creatine Kinase < 20 U/L (30-135); Estimated Glomerular Filt Rate > 60 mL/min (>60); Globulin 2.9 g/dL (1.7-4.1); Glucose 136 mg/dL (80-110); HEMOLYSIS 18 (0-50); Lipase 125 U/L (23-300); Potassium 3.3 mmol/L (3.4-5.1); Sodium 132 mmol/L (137-145); Total Protein 6.4 g/dL (6.3-8.2)
[2023-01-27 09:40] LABS: Troponin I 0.014 ng/mL (0.01-0.034)
--- NOTE | 2023-01-27 10:44 | DI.US.S_ITS ---
PROCEDURE: US ABDOMEN COMPLETE INDICATIONS: ABDOMINAL PAIN/ELEVATED ENZYMES TECHNIQUE: Real-time scanning was performed of the abdominal and retroperitoneal organs, with image documentation. COMPARISON: None. FINDINGS: Liver: Diffusely increased echogenicity. Gallbladder: Absent. Biliary ducts: Intrahepatic bile ducts are non-dilated. Extrahepatic bile duct caliber measures 5 mm. Normal is 6-7 mm or less in diameter, or 10 mm or less post-cholecystectomy. Pancreas: Visualized portions of the pancreas are sonographically normal. Spleen: Spleen is normal in size and homogeneous in echotexture. Kidneys: Kidneys are normal in size and echotexture. Right kidney measures 11.5 cm long; left kidney measures 12.9 cm long. No hydronephrosis or nephrolithiasis. No solid masses. Aorta: Visualized aorta is normal in caliber at less than 3 cm. Iliacs: Proximal common iliac arteries are normal in caliber at less than 2.5 cm. IVC: Intrahepatic inferior vena cava is patent. Miscellaneous: No free abdominal fluid. IMPRESSION: Increased liver echogenicity, commonly caused by of hepatic steatosis. Dictated by: Cole Garber M.D. on 01/27/2023 at 11:59 Approved by: Cole Garber M.D. on 01/27/2023 at 12:00
--- NOTE | 2023-01-27 10:46 | ED.SYNCOPE ---
HPI - Syncope General Chief Complaint: Syncope Stated Complaint: Syncope Time Seen by Provider: 01/27/23 10:32 Source: patient Mode of arrival: EMS Limitations: no limitations History of Present Illness HPI narrative: Patient brought in by EMS from home. and family at bedside. Patient had witnessed syncopal episode this morning. Patient recently had left craniotomy 2 weeks ago at [facility] for brain tumor. Patient states has been doing well. Has been taking Tylenol and oxycodone and has been weaning off these medications. No recent illness cough cold congestion fever chills. No urinary complaints. Has been eating and drinking as usual she states. This morning after showering she was drying her hair, was helping. She states she felt very dizzy like the room spinning and felt very sweaty. She passed out leaning against her . Did not hit her head. No seizure activity. Denies any abdominal pain. Patient had scalp bailey taken out 2 days ago in the office. Has been healing very well. Related Data Home Medications Medication Instructions Recorded Confirmed levothyroxine 112 mcg tablet 112 mcg PO DAILY ##0 09/06/11 07/11/20 (Synthroid) vitamins A,C,R-dprg-vesrxa 4,296 1 sgl PO BID ##0 08/12/17 07/11/20 mcg-226 mg-90 mg capsule (PreserVision AREDS) cetirizine 10 mg tablet (Zyrtec) 5 mg PO BEDTIME 03/28/19 07/11/20 hydrochlorothiazide 25 mg tablet 25 mg PO DAILY 03/28/19 07/11/20 cholecalciferol (vitamin D3) 10 2,000 mcg PO BID 06/26/20 07/11/20 mcg (400 unit) capsule losartan 25 mg tablet 25 mg PO DAILY 06/26/20 07/11/20 potassium chloride 10 mEq 10 meq PO DAILY 06/26/20 07/11/20 tablet,extended release(part/cryst) Allergies Allergy/AdvReac Type Severity Reaction Status Date / Time red dye Allergy Severe Hives Verified 07/11/20 07:33 aspirin Allergy Intermediate Hives Verified 07/11/20 07:33 NSAIDS (Non-Steroidal Allergy Intermediate Hives Verified 07/11/20 07:33 Anti-Inflamma Sulfa (Sulfonamide AdvReac Mild CAUSED Verified 07/11/20 07:33 Antibiotics) HEADACHES-HAD YRS AGO Review of Systems Review of Systems Narrative: GENERAL: negative chills, fatigue, malaise, fever, positive sweats. HEENT: negative sinus pain, ear pain, sore throat RESPIRATORY: negative dyspnea, cough CARDIOVASCULAR: negative chest pain, palpitations GASTROINTESTINAL: negative nausea, vomiting, abdominal pain : negative dysuria, frequency, hematuria MUSCULOSKELETAL: negative muscle or bony pain SKIN: negative rash, skin lesions NEUROLOGIC: negative weakness, numbness, positive dizziness, positive syncope, negative seizure ROS Unobtainable: All systems reviewed & are unremarkable except as noted in HPI and below Patient History Medical History (Updated 01/27/23 @ 14:15 by Jose M Miranda MD) History of diverticulitis Hypertension Hypothyroid Ocular migraine Surgical History H/O bilateral oophorectomy History of arthroscopy of right knee History of cholecystectomy History of colon resection History of hysterectomy History of incisional hernia repair Hx of total knee arthroplasty Family History Mother Diabetes mellitus Breast cancer Grandmother Stroke Social History marital status: household members: spouse Smoking Status: Never smoker alcohol intake: current substance use type: does not use Smoking Status: Never smoker alcohol intake frequency: a few times a week Substance Use Type: does not use Exam Narrative Exam Narrative: GENERAL: in no distress, not toxic not dyspneic HEAD: Normocephalic. Nontender scalp. Left postauricular incision area clean dry intact. EYES: Pupils equal round ENT: Mucous membranes moist. NECK: Trachea midline. CARDIOVASCULAR: Regular rate and rhythm without murmurs RESPIRATORY: Clear to auscultation. Breath sounds equal bilaterally. No wheezes, rales, or rhonchi. GASTROINTESTINAL: Abdomen soft, non-tender EXTREMITIES: No gross deformities. BACK: No flank tenderness. NEURO: AOx4. SKIN: Warm and dry PSYCH: Not anxious, is cooperative Initial Vital Signs Initial Vital Signs: Vital Signs Pulse Rate 53 L 01/27/23 09:10 Blood Pressure 134/65 01/27/23 09:10 Pulse Oximetry 97 01/27/23 09:10 Course Orders Ordered: ED Orders 01/27/23 08:55 Complete Blood Count AUTO DIFF Stat Comprehensive Metabolic Panel Stat Lipase Stat Magnesium Stat PTT Partial Thromboplastin Tarik Stat Prothrombin Time INR Stat Troponin & CK Cardiac Panel Stat 01/27/23 09:09 XR chest 1V Stat 01/27/23 10:44 US abdomen complete Stat 01/27/23 10:48 Respiratory Panel (Film Array) Stat 01/27/23 10:52 CT angio head and neck Stat 01/27/23 11:09 EKG-12 Lead Stat 01/27/23 11:35 Troponin & CK Cardiac Panel Stat 01/27/23 12:09 Urinalysis and Microscopic Stat 01/27/23 12:30 Acetaminophen Stat Vital Signs Vital signs: Vital Signs - 8 hr 01/27/23 09:15 01/27/23 09:10 01/27/23 09:10 Temperature 98.4 F Pulse Rate 53 L 53 L Pulse Rate [Orthostatic Lying] Pulse Rate [Orthostatic Sitting] Pulse Rate [Orthostatic Standing] Respiratory Rate 18 Blood Pressure 134/65 134/65 Blood Pressure [Orthostatic Lying] Blood Pressure [Orthostatic Sitting] Blood Pressure [Orthostatic Standing] Pulse Oximetry 100 97 Oxygen Delivery Method Room Air 01/27/23 09:30 01/27/23 09:31 01/27/23 09:31 Temperature Pulse Rate 51 L 50 L Pulse Rate [Orthostatic Lying] Pulse Rate [Orthostatic Sitting] Pulse Rate [Orthostatic Standing] Respiratory Rate 12 12 Blood Pressure 138/63 Blood Pressure [Orthostatic Lying] Blood Pressure [Orthostatic Sitting] Blood Pressure [Orthostatic Standing] Pulse Oximetry 100 100 Oxygen Delivery Method 01/27/23 10:00 01/27/23 10:01 01/27/23 10:01 Temperature Pulse Rate 49 L 49 L Pulse Rate [Orthostatic Lying] Pulse Rate [Orthostatic Sitting] Pulse Rate [Orthostatic Standing] Respiratory Rate 16 15 Blood Pressure 122/59 L Blood Pressure [Orthostatic Lying] Blood Pressure [Orthostatic Sitting] Blood Pressure [Orthostatic Standing] Pulse Oximetry 97 97 Oxygen Delivery Method 01/27/23 10:30 01/27/23 10:30 01/27/23 12:05 Temperature Pulse Rate 49 L Pulse Rate [Orthostatic Lying] 51 L Pulse Rate [Orthostatic Sitting] 59 L Pulse Rate [Orthostatic Standing] 63 Respiratory Rate 19 Blood Pressure 120/57 L Blood Pressure [Orthostatic Lying] 126/59 L Blood Pressure [Orthostatic Sitting] 156/66 H Blood Pressure [Orthostatic Standing] 135/60 Pulse Oximetry 98 Oxygen Delivery Method 01/27/23 11:04 01/27/23 11:06 01/27/23 11:06 Temperature Pulse Rate 54 L 50 L Pulse Rate [Orthostatic Lying] Pulse Rate [Orthostatic Sitting] Pulse Rate [Orthostatic Standing] Respiratory Rate 23 12 Blood Pressure 168/70 H Blood Pressure [Orthostatic Lying] Blood Pressure [Orthostatic Sitting] Blood Pressure [Orthostatic Standing] Pulse Oximetry 94 99 Oxygen Delivery Method 01/27/23 11:30 01/27/23 11:31 01/27/23 11:31 Temperature Pulse Rate 50 L 51 L Pulse Rate [Orthostatic Lying] Pulse Rate [Orthostatic Sitting] Pulse Rate [Orthostatic Standing] Respiratory Rate 27 H 27 H Blood Pressure 133/61 Blood Pressure [Orthostatic Lying] Blood Pressure [Orthostatic Sitting] Blood Pressure [Orthostatic Standing] Pulse Oximetry 99 98 Oxygen Delivery Method 01/27/23 11:49 01/27/23 11:49 01/27/23 11:52 Temperature Pulse Rate 49 L Pulse Rate [Orthostatic Lying] Pulse Rate [Orthostatic Sitting] Pulse Rate [Orthostatic Standing] Respiratory Rate 19 Blood Pressure 126/59 L 156/66 H Blood Pressure [Orthostatic Lying] Blood Pressure [Orthostatic Sitting] Blood Pressure [Orthostatic Standing] Pulse Oximetry 97 Oxygen Delivery Method 01/27/23 11:52 01/27/23 11:53 01/27/23 11:53 Temperature Pulse Rate 59 L 63 Pulse Rate [Orthostatic Lying] Pulse Rate [Orthostatic Sitting] Pulse Rate [Orthostatic Standing] Respiratory Rate 21 29 H Blood Pressure 135/60 Blood Pressure [Orthostatic Lying] Blood Pressure [Orthostatic Sitting] Blood Pressure [Orthostatic Standing] Pulse Oximetry 99 99 Oxygen Delivery Method 01/27/23 12:00 01/27/23 12:00 01/27/23 12:30 Temperature Pulse Rate 52 L 49 L Pulse Rate [Orthostatic Lying] Pulse Rate [Orthostatic Sitting] Pulse Rate [Orthostatic Standing] Respiratory Rate 22 30 H Blood Pressure 146/65 H Blood Pressure [Orthostatic Lying] Blood Pressure [Orthostatic Sitting] Blood Pressure [Orthostatic Standing] Pulse Oximetry 99 96 Oxygen Delivery Method 01/27/23 12:31 01/27/23 12:31 01/27/23 13:00 Temperature Pulse Rate 50 L 49 L Pulse Rate [Orthostatic Lying] Pulse Rate [Orthostatic Sitting] Pulse Rate [Orthostatic Standing] Respiratory Rate 29 H 18 Blood Pressure 120/60 Blood Pressure [Orthostatic Lying] Blood Pressure [Orthostatic Sitting] Blood Pressure [Orthostatic Standing] Pulse Oximetry 96 95 Oxygen Delivery Method 01/27/23 13:01 01/27/23 13:01 Temperature Pulse Rate 49 L Pulse Rate [Orthostatic Lying] Pulse Rate [Orthostatic Sitting] Pulse Rate [Orthostatic Standing] Respiratory Rate 19 Blood Pressure 111/56 L Blood Pressure [Orthostatic Lying] Blood Pressure [Orthostatic Sitting] Blood Pressure [Orthostatic Standing] Pulse Oximetry 95 Oxygen Delivery Method MDM - Syncope Lab Data 01/27/23 08:55 01/27/23 08:55 Labs: Lab Results 01/27/23 01/27/23 01/27/23 Range/Units 08:55 08:55 08:55 WBC 7.3 (4.5-11.0) X10^3/uL RBC 4.64 (4.0-5.2) X10^6/uL Hgb 14.1 (12.0-16.0) g/dL Hct 41.2 (36-46) % MCV 88.7 (80-100) fL MCH 30.4 (26-34) PG MCHC 34.2 (30-36) % RDW 13.9 (11.6-14.8) % Plt Count 222 (150-400) X10^3/uL Neut % (Auto) 86.5 H (50-75) % Lymph % (Auto) 3.5 L (25-40) % [place] % (Auto) 8.1 (3-14) % Eos % (Auto) 1.6 L (2-4) % Baso % (Auto) 0.3 (0-2) % Neut # (Auto) 6300 (7514-8699) /uL Lymph # (Auto) 300 L (9512-2844) /uL [place] # (Auto) 600 (0-900) /uL Eos # (Auto) 100 (0-450) /uL Baso # (Auto) 0 (0-100) /uL PT 11.6 (10.1-12.7) SECONDS INR 1.0 (0.9-1.3) APTT 27 (26-36) SECONDS Sodium 132 L (137-145) mmol/L Potassium 3.3 L (3.4-5.1) mmol/L Chloride 99 (98-107) mmol/L Carbon Dioxide 29 (22-32) mmol/L BUN 18 H (7-17) mg/dL Creatinine 0.55 (0.52-1.04) mg/dL Estimated GFR > 60 (>60) mL/min BUN/Creatinine Ratio 32.7 H (6-22) Glucose 136 H (80-110) mg/dL Calcium 8.2 L (8.4-10.2) mg/dL Magnesium 2.0 (1.6-2.3) mg/dL Total Bilirubin 0.6 (0.2-1.3) mg/dL AST 165 H (14-36) IU/L ALT 269 H (<35) IU/L Alkaline Phosphatase 136 H (38-126) U/L Total Creatine Kinase < 20 L (30-135) U/L CK-MB (CK-2) TNP CK-MB (CK-2) Rel Index TNP Troponin I 0.014 (0.01-0.034) ng/mL Total Protein 6.4 (6.3-8.2) g/dL Albumin 3.5 (3.5-5.0) g/dL Globulin 2.9 (1.7-4.1) g/dL Albumin/Globulin Ratio 1.2 (1.0-2.8) Lipase 125 (23-300) U/L Urine Color Urine Appearance Urine pH (4.5-8.0) Ur Specific [place] (1.000-1.035) Urine Protein (Negative) Urine Glucose (UA) (Negative) g/dL Urine Ketones (NEGATIVE) Urine Occult Blood (Negative) Urine Nitrate (Negative) Urine Bilirubin (NEGATIVE) Urine Urobilinogen (0.2) E.U./dL Ur Leukocyte Esterase (NEGATIVE) Urine RBC (0-5/HPF) Urine WBC (0-5/HPF) Urine Bacteria (None) Ur Culture Indicated? Acetaminophen (10-30) ug/mL Chlamy pneumoniae PCR (Not Detect) Adenovirus (PCR) (Not Detect) B. pertussis DNA (PCR) (Not Detecte) B.parapertussis DNA PCR (Not Detecte) Coronavirus OC43 (PCR) (Not Detect) Coronavirus HKU1 (PCR) (Not Detect) Coronavirus 229E (PCR) (Not Detect) SARS-CoV-2 (PCR) (Not Detecte) Coronavirus NL63 (PCR) (Not Detect) Human Metapneumovir PCR (Not Detect) Influenza Type A (PCR) (Not Detect) Influenza Type B (PCR) (Not Detect) M. pneumoniae (PCR) (Not Detect) Parainfluenza 1 (PCR) (Not Detect) Parainfluenza 2 (PCR) (Not Detect) Parainfluenza 3 (PCR) (Not Detect) Parainfluenza 4 (PCR) (Not Detect) RSV (PCR) (Not Detect) Entero/Rhino (PCR) (Not Detect) 01/27/23 01/27/23 01/27/23 Range/Units 10:48 11:35 12:09 WBC (4.5-11.0) X10^3/uL RBC (4.0-5.2) X10^6/uL Hgb (12.0-16.0) g/dL Hct (36-46) % MCV (80-100) fL MCH (26-34) PG MCHC (30-36) % RDW (11.6-14.8) % Plt Count (150-400) X10^3/uL Neut % (Auto) (50-75) % Lymph % (Auto) (25-40) % [place] % (Auto) (3-14) % Eos % (Auto) (2-4) % Baso % (Auto) (0-2) % Neut # (Auto) (4131-8920) /uL Lymph # (Auto) (6692-9563) /uL [place] # (Auto) (0-900) /uL Eos # (Auto) (0-450) /uL Baso # (Auto) (0-100) /uL PT (10.1-12.7) SECONDS INR (0.9-1.3) APTT (26-36) SECONDS Sodium (137-145) mmol/L Potassium (3.4-5.1) mmol/L Chloride (98-107) mmol/L Carbon Dioxide (22-32) mmol/L BUN (7-17) mg/dL Creatinine (0.52-1.04) mg/dL Estimated GFR (>60) mL/min BUN/Creatinine Ratio (6-22) Glucose (80-110) mg/dL Calcium (8.4-10.2) mg/dL Magnesium (1.6-2.3) mg/dL Total Bilirubin (0.2-1.3) mg/dL AST (14-36) IU/L ALT (<35) IU/L Alkaline Phosphatase (38-126) U/L Total Creatine Kinase 21 L (30-135) U/L CK-MB (CK-2) TNP CK-MB (CK-2) Rel Index TNP Troponin I 0.016 (0.01-0.034) ng/mL Total Protein (6.3-8.2) g/dL Albumin (3.5-5.0) g/dL Globulin (1.7-4.1) g/dL Albumin/Globulin Ratio (1.0-2.8) Lipase (23-300) U/L Urine Color Yellow Urine Appearance Clear Urine pH 6.5 (4.5-8.0) Ur Specific [place] <=1.005 (1.000-1.035) Urine Protein Negative (Negative) Urine Glucose (UA) Negative (Negative) g/dL Urine Ketones Negative (NEGATIVE) Urine Occult Blood Negative (Negative) Urine Nitrate Negative (Negative) Urine Bilirubin Negative (NEGATIVE) Urine Urobilinogen 0.2 (0.2) E.U./dL Ur Leukocyte Esterase Negative (NEGATIVE) Urine RBC None seen (0-5/HPF) Urine WBC None seen (0-5/HPF) Urine Bacteria None seen (None) Ur Culture Indicated? Cult not indicated Acetaminophen (10-30) ug/mL Chlamy pneumoniae PCR Not detected (Not Detect) Adenovirus (PCR) Not detected (Not Detect) B. pertussis DNA (PCR) Not detected (Not Detecte) B.parapertussis DNA PCR Not detected (Not Detecte) Coronavirus OC43 (PCR) Not detected (Not Detect) Coronavirus HKU1 (PCR) Not detected (Not Detect) Coronavirus 229E (PCR) Not detected (Not Detect) SARS-CoV-2 (PCR) Not detected (Not Detecte) Coronavirus NL63 (PCR) Not detected (Not Detect) Human Metapneumovir PCR Not detected (Not Detect) Influenza Type A (PCR) Not detected (Not Detect) Influenza Type B (PCR) Not detected (Not Detect) M. pneumoniae (PCR) Not detected (Not Detect) Parainfluenza 1 (PCR) Not detected (Not Detect) Parainfluenza 2 (PCR) Not detected (Not Detect) Parainfluenza 3 (PCR) Not detected (Not Detect) Parainfluenza 4 (PCR) Not detected (Not Detect) RSV (PCR) Not detected (Not Detect) Entero/Rhino (PCR) Not detected (Not Detect) 01/27/23 Range/Units 12:30 WBC (4.5-11.0) X10^3/uL RBC (4.0-5.2) X10^6/uL Hgb (12.0-16.0) g/dL Hct (36-46) % MCV (80-100) fL MCH (26-34) PG MCHC (30-36) % RDW (11.6-14.8) % Plt Count (150-400) X10^3/uL Neut % (Auto) (50-75) % Lymph % (Auto) (25-40) % [place] % (Auto) (3-14) % Eos % (Auto) (2-4) % Baso % (Auto) (0-2) % Neut # (Auto) (0498-7366) /uL Lymph # (Auto) (3936-7880) /uL [place] # (Auto) (0-900) /uL Eos # (Auto) (0-450) /uL Baso # (Auto) (0-100) /uL PT (10.1-12.7) SECONDS INR (0.9-1.3) APTT (26-36) SECONDS Sodium (137-145) mmol/L Potassium (3.4-5.1) mmol/L Chloride (98-107) mmol/L Carbon Dioxide (22-32) mmol/L BUN (7-17) mg/dL Creatinine (0.52-1.04) mg/dL Estimated GFR (>60) mL/min BUN/Creatinine Ratio (6-22) Glucose (80-110) mg/dL Calcium (8.4-10.2) mg/dL Magnesium (1.6-2.3) mg/dL Total Bilirubin (0.2-1.3) mg/dL AST (14-36) IU/L ALT (<35) IU/L Alkaline Phosphatase (38-126) U/L Total Creatine Kinase (30-135) U/L CK-MB (CK-2) CK-MB (CK-2) Rel Index Troponin I (0.01-0.034) ng/mL Total Protein (6.3-8.2) g/dL Albumin (3.5-5.0) g/dL Globulin (1.7-4.1) g/dL Albumin/Globulin Ratio (1.0-2.8) Lipase (23-300) U/L Urine Color Urine Appearance Urine pH (4.5-8.0) Ur Specific [place] (1.000-1.035) Urine Protein (Negative) Urine Glucose (UA) (Negative) g/dL Urine Ketones (NEGATIVE) Urine Occult Blood (Negative) Urine Nitrate (Negative) Urine Bilirubin (NEGATIVE) Urine Urobilinogen (0.2) E.U./dL Ur Leukocyte Esterase (NEGATIVE) Urine RBC (0-5/HPF) Urine WBC (0-5/HPF) Urine Bacteria (None) Ur Culture Indicated? Acetaminophen < 10 (10-30) ug/mL Chlamy pneumoniae PCR (Not Detect) Adenovirus (PCR) (Not Detect) B. pertussis DNA (PCR) (Not Detecte) B.parapertussis DNA PCR (Not Detecte) Coronavirus OC43 (PCR) (Not Detect) Coronavirus HKU1 (PCR) (Not Detect) Coronavirus 229E (PCR) (Not Detect) SARS-CoV-2 (PCR) (Not Detecte) Coronavirus NL63 (PCR) (Not Detect) Human Metapneumovir PCR (Not Detect) Influenza Type A (PCR) (Not Detect) Influenza Type B (PCR) (Not Detect) M. pneumoniae (PCR) (Not Detect) Parainfluenza 1 (PCR) (Not Detect) Parainfluenza 2 (PCR) (Not Detect) Parainfluenza 3 (PCR) (Not Detect) Parainfluenza 4 (PCR) (Not Detect) RSV (PCR) (Not Detect) Entero/Rhino (PCR) (Not Detect) Urine Dip Bedside Urine Glucose Negative Bedside Urine Bilirubin - Negative Bedside Urine Ketone - Negative Urine Specific [place] 1.005 Bedside Urine Occult Blood - Negative Bedside Urine pH 6.0 Bedside Urine Protein - Negative Bedside Urine Urobilinogen - Negative Bedside Urine Nitrite - Negative Bedside Urine Leukocytes - Negative Esterase Imaging Data CTA - brain/neck: Radiologist's Impression: No acute process US - abdomen: Radiologist's Impression: No acute process MDM Narrative Medical decision making narrative: Patient brought in by EMS from home. and family at bedside. Patient had witnessed syncopal episode this morning. Patient recently had left craniotomy 2 weeks ago at [facility] for brain tumor. Patient states has been doing well. Has been taking Tylenol and oxycodone and has been weaning off these medications. No recent illness cough cold congestion fever chills. No urinary complaints. Has been eating and drinking as usual she states. This morning after showering she was drying her hair, was helping. She states she felt very dizzy like the room spinning and felt very sweaty. She passed out leaning against her . Did not hit her head. No seizure activity. Denies any abdominal pain. Patient had scalp bailey taken out 2 days ago in the office. Has been healing very well. Patient at baseline at this time. After history and exam CBC CMP troponin EKG CT head urinalysis ordered. Patient completed 1 L normal saline that was started by EMS. Blood sugar not hypoglycemic by EMS. One hundred fifty-three. MDM CC: Syncope Complicating co-morbidities: Recent brain tumor surgery Data collected from: Patient and family Medical records reviewed: No recent visits here for this complaint Differential considered: Includes but not limited to seizure, vasovagal syncope/stroke dehydration Exam documented above, pertinent findings include: Patient at baseline at this time. No dizziness. Lab Test results independently reviewed as above. Pertinent findings: WBC 7.3 hemoglobin 14 hematocrit 41 platelets 222 sodium 132 potassium 3.3 bicarb 29 BUN 18 creatinine 0.55 GFR greater than 60 glucose 136 AST 165 ALT 269 alkaline phosphatase 136 troponin 0.014, troponin 0.016 Independently reviewed EKG as above sinus bradycardia rate [address] elevation or depression Imaging studies independently reviewed: CT head and neck angiogram no acute process Abdominal ultrasound no acute process Consultations: 1:30 p.m.. Spoke with primary care on-call for Dr. Gamino, I spoke with Dr Ramirez, no indication for admission. Patient can follow up with Dr. Gamino for outpatient echocardiogram and Holter monitor versus Zio patch. They will follow up on liver enzymes as well. Treatments: Normal saline Re-evaluations: 2:10 p.m.. Spoke with patient and family. Patient again is at baseline. Feels much better after IV fluids. Is not orthostatic. Laboratory studies are reassuring. Reviewed with them that they liver enzymes may be related to recent Tylenol use. She was taking up to 2 g a day. However she has been weaning down in the last couple of days. So it may be trending downward. Primary care will follow up with Zio patch or Holter monitor as well as echocardiogram and repeat liver enzymes. They are comfortable with this plan. They desire discharge home. Return precautions reviewed with them. Today's events of syncope could be arrhythmia versus cardiac valve issue however I do not hear murmur on exam. Or could be dehydration. Seizure episode also considered. Discussion: Appropriate for discharge home. Patient at baseline at time of discharge. Patient feels much better after IV fluids. Has been hemodynamically stable. Return precautions reviewed with patient and family. Primary care contacted for appropriate follow-up. Diagnosis: Syncope Discharge Plan Departure Patient Disposition: Home Clinical Impression: Syncope and collapse Instructions: DI for Syncope in Adults (Fainting) Activity Restrictions/Additional Instructions: No driving or operating machinery. Please call your family doctor today to confirm your office appointment time for re-evaluation of your liver enzymes in your blood work, as well as setting up for echocardiogram of the heart as well as Holter monitor or ZIO patch to monitor heart rhythm. At this time laboratory studies and the imaging done today are reassuring. Please decrease your Tylenol use. This may be contributory to your abnormal liver blood work. Keep well hydrated. Return if worse or if any questions or concerns Prescriptions: No Action levothyroxine [Synthroid] 112 mcg Tablet 112 mcg PO DAILY Qty: 0 PreserVision AREDS 1 EACH capsule 1 sgl PO BID Qty: 0 losartan 25 mg tablet 25 mg PO DAILY potassium chloride 10 mEq tablet,ER particles/crystals 10 meq PO DAILY cholecalciferol (vitamin D3) 10 mcg (400 unit) capsule 2,000 mcg PO BID cetirizine [Zyrtec] 10 mg Tablet 5 mg PO BEDTIME hydrochlorothiazide 25 mg Tablet 25 mg PO DAILY Referrals: Keyanna Gamino MD [Primary Care Provider] - Stand Alone Forms: Patient Portal/API
--- NOTE | 2023-01-27 10:52 | DI.CT.S_ITS ---
PROCEDURE: CT ANGIO HEAD AND NECK INDICATIONS: Syncope/recent left brain surgery TECHNIQUE: Pre-contrast 4.5 mm thick sections acquired from the foramen magnum to the vertex. After the administration of intravenous contrast, 1 mm thick sections acquired from the aortic arch through the [place] of [place]. Post-contrast 4.5 mm thick sections then re-acquired from the foramen magnum to the vertex. 3-dimensional kmfemyu-bwejglovf-hwlbsfdrbc (MIP) and/or volume rendering reformats were acquired of the central intracranial vasculature and neck separately. For radiation dose reduction, the following was used: automated exposure control, adjustment of mA and/or kV according to patient size. COMPARISON: None. FINDINGS: Image quality: Excellent. BRAIN: CSF spaces: Ventricles are normal in size and shape. Basal cisterns are patent. No extra-axial fluid collections. Brain: No midline shift. No intracranial bleeds or masses. Haney-white matter interface appears intact. Prior left cerebellar resection. Skull and face: Calvarium and facial bones appear intact, without suspicious lesions. Orbits appear normal. Left inferior craniotomy. Sinuses: Sinuses and mastoids are clear. HEAD CT ANGIOGRAPHY: Anterior circulation: Intracranial internal carotid arteries are normal in size and flow. The flow within the paired anterior cerebral arteries is normal and symmetric. The flow within the middle cerebral arteries is normal and symmetric. The anterior communicating artery is seen. No aneurysms are seen. Posterior circulation: Visualized portions of the vertebral arteries demonstrate normal caliber, and join to form a normal appearing basilar artery. Flow within the posterior cerebral arteries is normal and symmetric. No aneurysms are seen. NECK CT ANGIOGRAPHY: Carotid system: The great vessels demonstrate a conventional anatomy as they arise from the aortic arch. The origins of the common carotid arteries appear patent. The common carotid arteries demonstrate normal caliber and courses. The bifurcation regions are both widely patent. The internal carotid arteries demonstrate normal calibers and courses. Posterior circulation: The origins of the vertebral arteries both appear widely patent. The more superior extracranial portions of both vertebral arteries also demonstrate normal courses and calibers. They join to form a normal appearing basilar artery. Soft tissues: Visualized neck soft tissues demonstrate no suspicious abnormalities. Bones: No suspicious bony lesions. Visualized cervical spine appears normally aligned. IMPRESSION: Prior left cerebellum resection, without vascular complication. Any quantitative measurements of stenosis were performed using NASCET criteria. Dictated by: Cole Garber M.D. on 01/27/2023 at 11:25 Approved by: Cole Garber M.D. on 01/27/2023 at 11:31
[2023-01-27 11:45] LABS: Adenovirus Not Detected (Not Detect); B. parapertussis Not Detected (Not Detecte); Bordetella pertussis Not Detected (Not Detecte); Chlamydophila pneumoniae Not Detected (Not Detect); Coronavirus 229E Not Detected (Not Detect); Coronavirus HKU1 Not Detected (Not Detect); Coronavirus NL 63 Not Detected (Not Detect); Coronavirus OC43 Not Detected (Not Detect); Human Metapneumovirus Not Detected (Not Detect); Human Rhinovirus/Enterovirus Not Detected (Not Detect); Influenza A Not Detected (Not Detect); Influenza B Not Detected (Not Detect); Mycoplasma pneumoniae Not Detected (Not Detect); Parainfluenza Virus 1 Not Detected (Not Detect); Parainfluenza Virus 2 Not Detected (Not Detect); Parainfluenza Virus 3 Not Detected (Not Detect); Parainfluenza Virus 4 Not Detected (Not Detect); Respiratory Syncytial Virus Not Detected (Not Detect); SARS- CoV-2 Not Detected (Not Detecte)
[2023-01-27 11:56] LABS: Creatine Kinase 21 U/L (30-135)
[2023-01-27 12:08] LABS: Troponin I 0.016 ng/mL (0.01-0.034)
[2023-01-27 12:48] LABS: Acetaminophen < 10 ug/mL (10-30)
[2023-01-27 12:54] LABS: Appearance Urine UA CLEAR; Bilirubin Urine UA NEGATIVE (NEGATIVE); Color Urine UA YELLOW; Glucose Urine UA NEGATIVE (Negative); Ketones Urine UA NEGATIVE (NEGATIVE); Leukocyte Esterase Urine UA NEGATIVE (NEGATIVE); Nitrite Urine UA NEGATIVE (Negative); Occult Blood Urine UA NEGATIVE (Negative); Protein Urine UA NEGATIVE (Negative); Specific Gravity Urine UA <=1.005 (1.000-1.035); Urobilinogen Urine UA 0.2 E.U./dL (0.2)
[2023-01-27 12:58] LABS: pH Urine UA 6.5 (4.5-8.0)
[2023-01-27 13:24] LABS: Bacteria Urine None Seen; Culture Indicated Urine Cult Not Indicated; RBC Urine None Seen (0-5/HPF); WBC Urine None Seen (0-5/HPF)
== END 2023-01-27 14:34 | disposition home or self-care (01) ==
PROVIDERS: Emergency Provider Emergency Medicine; Family Provider Family Medicine; PCP Family Medicine
DX: R55 Syncope and collapse (principal); R00.1 Bradycardia, unspecified; R07.9 Chest pain, unspecified; R10.9 Unspecified abdominal pain; R79.89 Other specified abnormal findings of blood chemistry; Z20.822 Contact with and (suspected) exposure to COVID-19
CPT/HCPCS: 70496; 70498; 71045; 76700; 80053; 80329; 81001; 81003; 82550; 83690; 83735; 84484; 85025; 85610; 85730; 87633; 93005; 99283; 99284; G0480; Q9967

== ENCOUNTER → 2023-02-10 06:58 | Outpatient (CLI) | payer MEDICARE, OTHER, SELFPAY ==
--- NOTE | 2023-02-10 | DI.ECHO.S_ITS ---
[facility]---------+ [facility] +---------+ : : [address] : : : : [id number] : : : : Phone: [phone] Echocardiogram Report + + :Name: DAPHNEY WICK Study Date: 02/10/2023 Height: 65 in : :[facility] ReadingLocation: Weight: 190 lb : : Gender: Female BSA: 1.9 m2 : :: 1945 Age: 77 yrs BP: 126/66 mmHg: :Reason For Study: SYNCOPE AND COLLAPSE : :Ordering Physician: DEANDRE, : :JENNY Performed By: Keysha Burt : :Referring: JENNY CARRERA : + + Interpretation Summary Normal sinus rhythm. Normal LV size and wall thickness. Normal wall motion LV systolic function. Ejection fraction is 55-60%. Normal chamber sizes. No significant valvular abnormalities. No prior study available for comparison. Procedure: A two-dimensional transthoracic echocardiogram with color flow and Doppler was performed. The study quality was technically adequate. There is no prior echocardiogram noted for this patient. The patient was in sinus rhythm with heart rates between 53-60 bpm during the exam. Left Ventricle: The left ventricle is normal in size and wall thickness. The ejection fraction is estimated to be 55-60%. Right Ventricle: The right ventricle is normal in size and function. Atria: The left atrial size is normal. Right atrial size is normal. There is no Doppler evidence for an interatrial shunt. Mitral Valve: The mitral valve is normal in structure and function. There is mild mitral regurgitation. Aortic Valve: The aortic valve is trileaflet. The aortic valve opens well. There is no aortic valve stenosis. No aortic regurgitation is present. Tricuspid Valve: The tricuspid valve is normal in structure and function. There is mild tricuspid regurgitation. The right ventricular systolic pressure is estimated to be at least 24 mmHg based on an estimated right atrial pressure of 3 mm Hg. Pulmonic Valve: The pulmonic valve leaflets are thin and pliable; valve motion is normal. There is mild pulmonic regurgitation. Great Vessels: The aortic root is normal size. The dimensions of the ascending aorta are normal. The IVC is of normal diameter and collapses greater than 50% with a sniff. This suggests a low right atrial pressure of 3 mm Hg. Pericardium/ Pleura There is no pericardial effusion. There is no pleural effusion. MMode/2D Measurements & Calculations LVIDd: 5.2 cm LVOT diam: 2.0 cm LVIDs: 3.5 cm Ao root diam: 2.7 cm FS: 32.2 % asc Aorta Diam: 3.1 cm EPSS: 1.1 cm IVSd: 0.80 cm LVPWd: 0.76 cm LV arzate. diameter/BSA (cm/m^2): 2.7 LV sys. diameter/BSA (cm/m^2): 1.8 LA A2 area: 20.0 cm2 RA long axis: 5.0 cm LA A4 area: 15.8 cm2 RA area: 16.9 cm2 LA length (vol): 4.5 cm RA vol: 48.3 ml LA vol: 59.3 ml RA : 25.0 ml/m2 LA vol index: 30.6 ml/m2 IVC diam: 1.4 cm RVD1 (basal): 3.3 cm RVD2 (mid): 2.7 cm TAPSE: 2.2 cm Doppler Measurements & Calculations Ao V2 max: 143.3 cm/sec LVOT Max Favio: 83.5 cm/sec Ao V2 mean: 99.9 cm/sec LV V1 max P.8 mmHg Ao max P.2 mmHg LV V1 VTI: 20.4 cm Ao mean P.4 mmHg TITI(I,D): 1.9 cm2 Ao V2 VTI: 31.9 cm TITI(V,D): 1.7 cm2 sev ratio: 0.64 TITI indexed to BSA (cm^2/m^2): 0.99 MV E max favio: 98.0 cm/sec TR max favio: 229.0 cm/sec MV A max favio: 96.6 cm/sec TR max P.0 mmHg MV E/A: 1.0 PA V2 max: 101.8 cm/sec Med Peak E' Favio: 5.4 cm/sec PA V2 mean: 68.5 cm/sec E/E' med: 18.1 PA mean P.2 mmHg Lat Peak E' Favio: 7.3 cm/sec PA pr(Accel): 48.2 mmHg E/E' lat: 13.4 E/e' average: 15.7 MV dec time: 0.22 sec SV(LVOT): 60.9 ml Electronically signed by: Rosalina Perea M.D. on Reading Physician:02/10/2023 02:01 PM
== END ==
PROVIDERS: Family Provider Family Medicine; PCP Family Medicine; Referring Provider Family Medicine; Visit Provider Family Medicine
DX: R55 Syncope and collapse (principal)
CPT/HCPCS: 93306

== ENCOUNTER → 2023-07-12 09:01 | Outpatient (CLI) | payer MEDICARE, OTHER, SELFPAY ==
--- NOTE | 2023-07-12 | DI.MRI.S_ITS ---
PROCEDURE: MR HEAD/BRAIN WO/W CON INDICATIONS: BRAIN TUMOR TECHNIQUE: Noncontrast axial T1 spin echo, axial T2 fast spin echo, sagittal and axial FLAIR, coronal T2 fast spin echo, axial gradient echo, axial diffusion and ADC through the brain. After the administration of contrast, axial and coronal and sagittal 3D VIBE or T1 spin echo with fat saturation through the brain. COMPARISON: [facility], CT, CT ANGIO HEAD AND NECK, 01/27/2023, 10:58. FINDINGS: Image quality: Excellent. CSF Spaces: Basal cisterns are patent. No extra-axial fluid collections. Ventricles are normal in size and shape. Brain: No intracranial masses or hemorrhage. Haney/white matter interface is normal. Brainstem appears normal. Diffusion-weighted sequence is unremarkable without evidence of acute infarct. Normal intravascular flow voids are present. Left retrosigmoid craniotomy is again noted associated with lateral left cerebellar gliosis. No abnormal enhancement. Moderate cerebral multifocal white matter chronic ischemic change. Skull and face: Calvarial marrow is normal in signal. Orbits appear normal. Bilateral intraocular lens replacements noted. Sinuses: Sinuses and mastoids appear clear. IMPRESSION: Left retrosigmoid craniotomy and left lateral cerebellar gliosis without evidence of recurrent or residual neoplastic disease. Atrophy and chronic ischemic change without acute hemorrhage, infarct or mass lesion Approved by: James Harper M.D. on 07/12/2023 at 16:33
== END ==
PROVIDERS: Family Provider Family Medicine; PCP Family Medicine; Referring Provider Neurological Surgery; Visit Provider Neurological Surgery
DX: D49.6 Neoplasm of unspecified behavior of brain (principal); G93.89 Other specified disorders of brain
CPT/HCPCS: 70553; A9579

== ENCOUNTER → 2023-08-23 13:11 | Outpatient (CLI) | payer MEDICARE, OTHER, SELFPAY ==
--- NOTE | 2023-08-23 | DI.MG.S_ITS ---
BILATERAL DIGITAL SCREENING MAMMOGRAM 3D/2D WITH CAD: 08/23/2023 CLINICAL: Routine screening. Family history of breast cancer. Comparison is made to exams dated: 07/28/2022 mammogram, 07/04/2021 mammogram, 06/23/2020 mammogram, 03/19/2019 mammogram, and 03/01/2018 mammogram - [facility]. There are scattered areas of fibroglandular density in both breasts (category b / 25%-50% glandular tissue). Current study was also evaluated with a Computer Aided Detection (CAD) system. No significant masses, calcifications, or other findings are seen in either breast. There has been no significant interval change. IMPRESSION: NEGATIVE There is no mammographic evidence of malignancy. A 1 year screening mammogram is recommended. Based on the Tyrer Cuzick model (a risk assessment model) the patient's lifetime risk is 4.0% and her 10 year risk is 0.0%. According to the ACR, ACS, and NCCN guidelines, an annual breast MRI exam along with mammogram is recommended if the patient's lifetime risk is 20% or greater. This exam was interpreted at Station ID: [id number]. NOTE: For mammograms, a report in lay terms will be sent to the patient. Approximately 15% of breast malignancies will not be visualized mammographically. In the management of a palpable breast mass, a negative mammogram must not discourage biopsy of a clinically suspicious lesion. Electronically Signed By: Gomez reese/bria:08/23/2023 14:48:08 copy to: Keyanna Gamino letter sent: Normal Exam ACR BI-RADS Category 1: Negative [id number]
== END ==
PROVIDERS: Family Provider Family Medicine; PCP Family Medicine; Referring Provider Family Medicine; Visit Provider Family Medicine
DX: Z12.31 Encounter for screening mammogram for malignant neoplasm of breast (principal); Z80.3 Family history of malignant neoplasm of breast
CPT/HCPCS: 77063; 77067

== ENCOUNTER → 2023-12-07 13:28 | Outpatient (CLI) | payer MEDICARE, OTHER, SELFPAY ==
--- NOTE | 2023-12-07 13:31 | DI.RAD.S_ITS ---
PROCEDURE: XR FOOT LT 2V INDICATIONS: FOOT PAIN TECHNIQUE: 3 views of the foot were acquired. COMPARISON: [facility], CR, XR ANKLE LT MIN 3V, 06/09/2020, 9:58. [facility], , FOOT 3V LEFT, 06/15/2013, 9:50. FINDINGS: Bones: No fractures or dislocations. No suspicious bony lesions. Moderate osteoarthritic changes. There is periarticular bony erosion in the 2nd metatarsal head, new since the last exam. Osteopenia. Soft tissues: No tibiotalar joint effusion. Achilles tendon appears normal. IMPRESSION: 1. Moderate osteoarthritis. 2. Periarticular erosion in the 2nd metatarsal head. Recommend clinical correlation for inflammatory arthritis. Dictated by: Florentino Marlow M.D. on 12/08/2023 at 8:02 Approved by: Florentino Marlow M.D. on 12/08/2023 at 8:05
== END ==
LOC: RAD 13:29
PROVIDERS: Family Provider Family Medicine; PCP Family Medicine; Referring Provider Family Medicine; Visit Provider Family Medicine
DX: M19.072 Primary osteoarthritis, left ankle and foot (principal); M85.872 Other specified disorders of bone density and structure, left ankle and foot; M79.672 Pain in left foot
CPT/HCPCS: 73620

== ENCOUNTER → 2024-09-06 08:14 | Outpatient (CLI) | payer MEDICARE, OTHER, SELFPAY ==
--- NOTE | 2024-09-06 08:17 | DI.MG.S_ITS ---
BILATERAL DIGITAL SCREENING MAMMOGRAM 3D/2D WITH CAD: 09/06/2024 CLINICAL: Routine screening. Family history of breast cancer. Comparison is made to exams dated: 08/23/2023 mammogram, 07/28/2022 mammogram, and 07/04/2021 mammogram - [facility]. There are scattered areas of fibroglandular density (category b / 25%-50% glandular tissue). Current study was also evaluated with a Computer Aided Detection (CAD) system. No significant masses, calcifications, or other findings are seen in either breast. There has been no significant interval change. IMPRESSION: NEGATIVE There is no mammographic evidence of malignancy. A 1 year screening mammogram is recommended. Based on the Tyrer Cuzick model (a risk assessment model) the patient's lifetime risk is 3.7% and her 10 year risk is 0.0%. According to the ACR, ACS, and NCCN guidelines, an annual breast MRI exam along with mammogram is recommended if the patient's lifetime risk is 20% or greater. This exam was interpreted at Station ID: [id number]. NOTE: For mammograms, a report in lay terms will be sent to the patient. Approximately 15% of breast malignancies will not be visualized mammographically. In the management of a palpable breast mass, a negative mammogram must not discourage biopsy of a clinically suspicious lesion. Electronically Signed By: Abhi zeng/bria:09/07/2024 15:40:29 copy to: Keyanna Gamino letter sent: Normal Exam ACR BI-RADS Category 1: Negative
== END ==
PROVIDERS: Family Provider Family Medicine; PCP Family Medicine; Referring Provider Family Medicine; Visit Provider Family Medicine
DX: Z12.31 Encounter for screening mammogram for malignant neoplasm of breast (principal); Z80.3 Family history of malignant neoplasm of breast
CPT/HCPCS: 77063; 77067

== ENCOUNTER → 2024-11-21 12:27 | Outpatient (CLI) | payer MEDICARE, OTHER, SELFPAY ==
--- NOTE | 2024-11-21 12:29 | DI.RAD.S_ITS ---
PROCEDURE: XR DEXA AXIAL SKELETON INDICATIONS: OSTEOPOROSIS,OSTEOPENIA COMPARISON: [facility], [facility], XR DEXA AXIAL SKELETON, 07/27/2022, 15:34. FINDINGS: Lumbar Spine: Bone mineral density 1.073 (previously 1.086) g/cm2, T score 0.5 (previously 0.6). Left Femoral Neck: Bone mineral density 0.513 (previously 0.584) g/cm2, T score -3.0 (previously-2.4) Left Hip: Bone mineral density 0.726 (previously 0.717) g/cm2, T score -1.8 (previously-1.8). Fracture Risk Calculation (when applicable): 10-year fracture risk of a major osteoporotic fracture 20 percent and of a hip fracture 7.6 percent. (T score greater or equal to -1.0 to: NORMAL) (T score from -1.1 to -2.4: OSTEOPENIA) (T score less than or equal to -2.5: OSTEOPOROSIS) IMPRESSION: Osteoporosis---recommend repeat DEXA in 2 years or less for reassessment of response to treatment. Follow-up guidelines as follows: Osteoporosis: Consider a repeat DEXA and Vertebral Fracture Assessment (VFA) exam in 2 years or sooner if medically necessary, to reassess this patient's status. Osteopenia: Consider a repeat DEXA in 2-3 years to reassess this patient's status, or if there is a new clinical indication. Normal: Consider a repeat DEXA in 5 years or sooner, or if there is a new clinical indication. All treatment decisions require clinical judgment and consideration of individual patient factors, including patient preferences, comorbidities, previous drug use, risk factors not captured in the FRAX model (e.g., frailty, falls, vitamin D deficiency, increased bone turnover, interval significant decline in bone density ) and possible under- or over-estimation of fracture risk by FRAX. In addition, the NOF Guide recommends that FDA-approved medical therapies be considered in postmenopausal women and men age >= 50 years with a: * Hip or vertebral (clinical or morphometric) fracture * T-score of <=-2.5 at the spine or hip * Ten-year fracture probability by FRAX of >= 3% for hip fracture or >=20% for major osteoporotic fracture. Dictated by: Bright Sesay M.D. on 11/22/2024 at 3:19 Approved by: Bright Sesay M.D. on 11/22/2024 at 3:21
== END ==
PROVIDERS: Family Provider Family Medicine; PCP Family Medicine; Referring Provider Family Medicine; Visit Provider Family Medicine
DX: M81.0 Age-related osteoporosis without current pathological fracture (principal)
CPT/HCPCS: 77080

== ENCOUNTER → 2025-04-22 12:33 | Outpatient (CLI) | payer MEDICARE, OTHER, SELFPAY ==
--- NOTE | 2025-04-22 12:41 | DI.RAD.S_ITS ---
PROCEDURE: XR LUMBAR SPINE 3V INDICATIONS: back pain TECHNIQUE: 3 views of the lumbar spine were acquired. COMPARISON: None. FINDINGS: Moderate reverse S-shaped scoliosis. Moderate to severe degenerative changes of the lower thoracic, lumbar spine with disc space narrowing, osteophytes, facet osseous hypertrophic changes most notably L3-4, L4-5 and L5-S1. Grade 1 spondylolisthesis L4 on L5. Moderate degenerative changes bilateral sacroiliac joints and hips partially imaged. No radiographic evidence of fracture. IMPRESSION: Degenerative changes as discussed above. Grade 1 spondylolisthesis L4 on L5. If symptoms persist or worsen, or there is high clinical suspicion of lumbar abnormality, MRI could be performed. Dictated by: Saravanan Penaloza M.D. on 04/22/2025 at 21:13 Approved by: Saravanan Penaloza M.D. on 04/22/2025 at 21:16
--- NOTE | 2025-04-22 12:41 | DI.RAD.S_ITS ---
PROCEDURE: XR HIP W PEL IF DONE BILAT 2V, three views total INDICATIONS: Pain TECHNIQUE: AP pelvis with lateral views of the bilateral hips, three views total. COMPARISON: None. FINDINGS: Moderate degenerative changes of the bilateral hips with joint space narrowing and osteophytes Kellgren [place] grade 3. Moderate degenerative changes lower lumbar spine and sacroiliac joints. No radiographic evidence of displaced fracture, dislocation or high attenuation soft tissue foreign body. IMPRESSION: Degenerative changes. If symptoms persist or worsen, or there is high clinical suspicion of pelvic/hip abnormality, MRI could be performed. Dictated by: Saravanan Penaloza M.D. on 04/22/2025 at 16:39 Approved by: Saravanan Penaloza M.D. on 04/22/2025 at 16:41
== END ==
LOC: RAD 12:36
PROVIDERS: Family Provider Family Medicine; PCP Family Medicine; Referring Provider Family Medicine; Visit Provider Family Medicine
DX: M25.551 Pain in right hip (principal); M54.50 Low back pain, unspecified; M16.0 Bilateral primary osteoarthritis of hip; M51.369 Other intervertebral disc degeneration, lumbar region without mention of lumbar back pain or lower extremity pain; M43.10 Spondylolisthesis, site unspecified
CPT/HCPCS: 72100; 73521

== ENCOUNTER 2025-05-15 11:14 | Outpatient (RCR) | payer OTHER, MEDICARE, SELFPAY ==
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
--- NOTE | 2025-07-01 08:13 | PT.OPDS ---
Current Diagnoses Pain in right hip (05/15/25) Low back pain, unspecified (05/15/25) Visit Care Team Role Provider Type Keyanna Gamino MD Attending Provider Physician Family Provider Primary Care Provider Referring Provider Specialty: Family Practice Address: [address] [place] [address], [place], [address] Email: [email or web address] Visit Number Visit Number 1 Discharge Summary PT OP: Lower Back/Lower Extremity Start: 05/14/25 07:50 Freq: Status: Active Protocol: Document 07/01/25 08:11 [facility] (Rec: 07/01/25 08:13 [facility] [id number]) Out-Patient Physical Therapy Visit Information Visit Information Visit Type Discharge Summary Physical Therapy Assessment Goals balance Second Baker Goal (LTG) Pt will be able to do SLS at least 5 sec B LTG Duration 08/03 strength Short Term Goal (STG Pt will demonstrate independence w/HEP by being able to ) perform with no more than min cues. STG Duration 06/19 Second [place] Goal (LTG) Pt will score at least 4+/5 on all BLE MMT and at least 3/5 LPM to show improved strength to allow pt to stand as needed w/o pain LTG Duration 08/05 activity Short Term Goal (STG Pt will be able to transition from sit ot stand w/o inc ) pain STG Duration 07/03 Second Baker Goal (LTG) Pt will be able to return to standing as needed and walking on treadmill 10 min a day w/o inc pain in back or hip LTG Duration 08/13 Assessment Summary Assessment Pt DC d/t cancelling all appointments and cancellation d/t knee surgery in aug. DC no longer attending PT Physical Therapy Plan Discharge Physical Therapy Discharge Reasons Patient Request
== END 2025-07-03 09:51 | disposition home or self-care (01) ==
LOC: PHYS 11:14
PROVIDERS: Family Provider Family Medicine; PCP Family Medicine; Referring Provider Family Medicine; Visit Provider Family Medicine
DX: M54.50 Low back pain, unspecified (principal); M25.551 Pain in right hip
CPT/HCPCS: 97162; 97535

== ENCOUNTER → 2025-05-29 11:40 | Outpatient (CLI) | payer OTHER, SELFPAY ==
--- NOTE | 2025-05-29 11:41 | DI.RAD.S_ITS ---
PROCEDURE: XR KNEE RT 4V INDICATIONS: Pain in right knee TECHNIQUE: 3 views of the knee were acquired. COMPARISON: None. FINDINGS: Bones: No fractures or dislocations. No suspicious bony lesions. Severe tricompartmental degenerative arthrosis. Soft tissues: No joint effusion. Large calcified body in the suprapatellar recess. IMPRESSION: No acute fracture or dislocation. 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 Recommend further evaluation with MRI knee. Dictated by: Dre Cook M.D. on 05/29/2025 at 13:22 Approved by: Dre Cook M.D. on 05/29/2025 at 13:23
== END ==
LOC: RAD 11:40
PROVIDERS: Family Provider Family Medicine; PCP Family Medicine; Referring Provider Family Medicine; Visit Provider Family Medicine
DX: M17.11 Unilateral primary osteoarthritis, right knee (principal); M23.41 Loose body in knee, right knee; M25.561 Pain in right knee
CPT/HCPCS: 73564

== ENCOUNTER → 2025-06-06 11:02 | Outpatient (CLI) | payer MEDICARE, OTHER, SELFPAY ==
--- NOTE | 2025-06-06 11:04 | DI.MRI.S_ITS ---
PROCEDURE: MR KNEE RT WO/W CON INDICATIONS: RIGHT KNEE PAIN TECHNIQUE: Noncontrast sagittal PD fast spin echo and T2 fast spin echo with fat saturation, sagittal 3-D FLASH with fat saturation; coronal T1 spin echo and PD fast spin echo with fat saturation, and axial T1 spin echo and PD fast spin echo with fat saturation through the knee. Post-contrast axial, coronal, and sagittal T1 spin echo with fat saturation through the knee. COMPARISON: Knee radiograph on 05/29/2025. FINDINGS: Image quality: Excellent. Menisci: Multidirectional degenerative tear of the medial meniscal body with vertical longitudinal, free edge component, and horizontal cleavage component. Intrasubstance degeneration of the posterior horn of the medial meniscus. Intrasubstance degenerative degeneration of the lateral meniscus without tear. Ligaments: The ACL is intact. The PCL is intact. Mild, grade 1, sprain of the MCL. The LCL is intact. The posterolateral supporting structures are intact. Mild insertional tendinosis of popliteus. Extensor Mechanism: Quadriceps tendon is intact. The patellar tendon is intact. The patellar retinacula are intact. Osseous Structures: There is no fracture or dislocation. No suspicious marrow replacing process. Bone marrow edema at deep to areas of full-thickness articular cartilage loss in the medial compartment. Possible fractured medially directed osteophyte along the medial femoral condyle (4/17). Moderate joint effusion. Hoffa's fat pad is unremarkable. A calcified on nonenhancing, 2.7 x 2.6 cm intra-articular body in the lateral suprapatellar recess. Mild synovitis along the medial joint line. No enhancing marrow replacing abnormality. Articular Cartilage: Patellofemoral compartment: Full-thickness articular cartilage loss of the patella and lateral trochlea. Deep to full-thickness articular cartilage thinning and fraying of the central femoral trochlea. Medial compartment: Broad, full-thickness, articular cartilage loss of the central weight-bearing condyle and deep thinning of the peripheral medial plateau. Lateral compartment: Deep thinning with areas of full-thickness thinning to bone of the anterior, medial, condylar articular cartilage. Other: The visualized muscles and tendons appear normal for age. No Rich's cyst. Normal neurovascular signal. Subcutaneous soft tissues appear normal. IMPRESSION: 1. 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 2. Possible fractured osteophyte along the medial weight-bearing femoral condyle with surrounding bone marrow edema. 3. Multidirectional degenerative tear of the medial meniscus. 4. Calcified 2.7 cm intra-articular body in the lateral suprapatellar recess. This is likely secondary to the severe osteoarthritis. 5. Mild sprain of the MCL. Dictated by: Dre Cook M.D. on 06/06/2025 at 13:04 Approved by: Dre Cook M.D. on 06/06/2025 at 13:10
== END ==
LOC: MRI 11:03
PROVIDERS: Family Provider Family Medicine; PCP Family Medicine; Referring Provider Family Medicine; Visit Provider Family Medicine
DX: M23.231 Derangement of other medial meniscus due to old tear or injury, right knee (principal); M22.41 Chondromalacia patellae, right knee; M17.11 Unilateral primary osteoarthritis, right knee; S83.411A Sprain of medial collateral ligament of right knee, initial encounter; M25.561 Pain in right knee; R93.89 Abnormal findings on diagnostic imaging of other specified body structures
CPT/HCPCS: 73723; A9579

== ENCOUNTER → 2025-08-26 13:50 | Outpatient (CLI) | payer MEDICARE, OTHER, SELFPAY ==
--- NOTE | 2025-08-26 13:51 | DI.MG.S_ITS ---
MM screening mammo BI: 08/26/2025. BI-RADS: 1 CLINICAL: 80-year old female for bilateral screening mammogram. Tyrer-Cuzick lifetime risk of 3.1%. Current reported family history of breast cancer: mother. PRIOR EXAMS: 09/06/2024, 08/23/2023, 07/28/2022, 07/04/2021, 06/23/2020, 03/19/2019, 03/01/2018. MAMMOGRAPHY TECHNIQUE: 2D and 3D (tomosynthesis) digital mammographic views obtained, with additional images as needed for full coverage. Current study was also evaluated with a Computer Aided Detection (CAD) system. DENSITY B. There are scattered areas of fibroglandular density. MAMMOGRAPHY FINDINGS Bilateral: No suspicious mass, asymmetry, microcalcification, or other abnormality seen. IMPRESSION: * No evidence of malignancy. RECOMMENDATIONS Bilateral * Annual screening mammography. OVERALL ASSESSMENT CATEGORY BI-RADS-1: Negative. The [employer] recommends annual screening mammography beginning at age 40 for women with average risk of breast cancer. ELECTRONICALLY SIGNED: Vanda Palumbo M.D. on 08/26/2025 at 10:25:50 PM PT Interpreting Station ID: [id number]
== END ==
PROVIDERS: Family Provider Family Medicine; PCP Family Medicine; Referring Provider Family Medicine; Visit Provider Family Medicine
DX: Z12.31 Encounter for screening mammogram for malignant neoplasm of breast (principal); Z80.3 Family history of malignant neoplasm of breast
CPT/HCPCS: 77063; 77067